=== PATIENT | female | born 1980 | race Caucasian/White ===

== ENCOUNTER 2019-08-16 17:04 | Emergency (ER) | payer MEDICAID, SELFPAY ==
[2019-08-16 17:11] VITALS: TEMP 36.6; BMI 21.2
--- NOTE | 2019-08-16 17:14 | W.ED.PSYCH ---
HPI - Psych General: Chief Complaint: General Medical Stated Complaint: OUT OF BIPOLAR MEDS Time Seen by Provider: 08/16/19 17:09 History of Present Illness: HPI Narrative: Patient is a 38 year old female presenting with crying for the past month. She has not been on her medicines for a month and says that she has been crying every day. She denies suicidal ideation, but feels hopeless, sad, is unable to sleep and wants to be admitted and started back on her medicine. Associated symptoms: Reports depression; Deny suicidal ideation Review of Systems General: Reports: 10 or more systems reviewed and unremarkable except in HPI and below Const: Reports: malaise; Denies: fever(s), chills or fatigue Eyes: Denies: change in vision ENMT: Denies: odynophagia Card: Denies: chest pain or swelling of feet/ankles Resp: Denies: dyspnea, productive cough or non-productive cough GI: Denies: abdominal pain, nausea or vomiting : Denies: flank pain or difficulty voiding Musc: Denies: neck pain or back pain Skin/Breast: Denies: rash Neuro: Denies: headache(s), numbness in extremities or weakness in extremities Psych: Reports: anxiety, depression, mood swings, sleeping less, hopelessness, loss of interest, irritability and other (Crying); Denies: suicidal ideation Young/Lymph: Denies: easy bruising or easy bleeding PFSH ED PFSH: Social History Smoking and tobacco status: never smoked Physical Exam Const: COMMON NORMALS: no acute distress, patient oriented x3, no limitations and alert GENERAL APPEARANCE: cooperative and comfortable HENMT: HEAD & SCALP: normal to inspection FACE & SINUS: normal facial exam Eye: GENERAL EYE: appearance normal, both eyes and all related structures Neck/C-Spine: COMMON NORMALS: supple, no meningeal signs and no JVD Chest: COMMONS NORMALS: normal inspection of the chest Resp: COMMON NORMALS: normal respiratory effort, No use of accessory muscles and clear to auscultation bilaterally AUSCULTATION: clear to auscultation bilaterally Cardio: COMMON NORMALS: no JVD, regular rate, regular rhythm and No murmurs present (Cardio) RATE: regular rate RHYTHM: regular rhythm GI: COMMON NORMALS: Normal to inspection, nondistended, normoactive bowel sounds present, Soft to palpation and non-tender INSPECTION: Yes normal to inspection AUSCULTATION: Yes normoactive bowel sounds PALPATION: Yes Soft to palpation Back/Pelvis: COMMON NORMALS: thoracic and lumbar spine normal to inspection Extremity: COMMON NORMALS: normal to inspection Neuro: COMMON NORMALS: patient oriented x3, moves all extremities, no focal motor deficits and no sensory deficits noted SENSORIUM/ORIENTATION: Yes alert MENINGEAL SIGNS: Yes no meningeal signs Psych: COMMON NORMALS: mental status grossly normal, cooperative and speech normal ATTITUDE: Yes calm SPEECH: Yes normal speech MOOD & AFFECT: Yes depressed mood, Yes anxious and Yes tearful Skin: COMMON NORMALS: no rashes or lesions noted and turgor normal GENERAL SKIN EXAM: no rashes or lesions noted and turgor normal MDM - Psych Lab Data: Labs: Lab Results 08/16/19 08/16/19 08/16/19 Range/Units 17:23 17:23 17:30 WBC 8.7 (4.0-10.0) 10^3/ uL RBC 4.73 (4.1-5.3) 10^6/u L Hgb 14.5 (11.5-15.3) g/dL Hct 43.3 (37.0-47.0) % MCV 91.5 (81-99) fL MCH 30.7 (28.0-34.0) pg MCHC 33.5 (30.0-36.0) g/dL RDW 13.2 (12.1-15.1) % Plt Count 243 (130-400) 10^3/c mm MPV 11.6 H (7.4-10.4) fL Neut % (Auto) 62.0 % Lymph % (Auto) 29.5 % Ness % (Auto) 6.0 % Eos % (Auto) 1.7 % Baso % (Auto) 0.5 % Neut # (Auto) 5.4 (1.8-7.7) 10^3/u L Lymph # (Auto) 2.6 (0.8-4.8) 10^3/u L Ness # (Auto) 0.5 (0.2-0.9) 10^3/u L Eos # (Auto) 0.2 (0.0-0.8) 10^3/u L Baso # (Auto) 0.0 (0.0-0.1) 10^3/u L Nucleated RBC % (a uto) 0 % Nucleated RBCs # 0.0 /100WBC Sodium 140 (136-145) mmol/L Potassium 3.8 (3.5-5.1) mmol/L Chloride 105 (98-107) mmol/L Carbon Dioxide 21 L (22-29) mmol/L Anion Gap 17.8 (5-19) BUN 7 (6-20) mg/dL Creatinine 0.5 (0.5-0.9) mg/dL GFR Calculation 138.1 H (90-130) mL/min Glucose 98 (65-115) mg/dL Calculated Osmolal ity 286 (285-295) mOsm/k g Calcium 8.9 (8.5-10.5) mg/dL Total Bilirubin 0.2 (0.15-1.2) mg/dL AST 15 (0-32) U/L ALT 16 (0-33) U/L Alkaline Phosphata se 83 (35-105) IU/L Total Protein 6.9 (6.6-8.7) g/dL Albumin 4.4 (3.5-5.2) g/dL Globulin 2.5 (1.3-4.6) g/dL TSH 1.54 (0.27-4.20) uIU/ mL HCG, Qual Negative (Negative) Salicylates < 0.3 L (3-10) mg/dL Acetaminophen < 5.0 L (10-30) ug/mL Ethyl Alcohol < 10 (0-10) mg/dL Discharge Plan Discharge Patient Disposition: Home, Self-Care Clinical Impression: Depression Qualifiers: Depression Type: unspecified Qualified Code(s): F32.9 - Major depressive disorder, single episode, unspecified Condition: Stable Prescriptions: New Latuda 40 mg tablet 80 mg PO DAILY Qty: 90 RF: 0 trazodone 50 mg tablet 50 mg PO .nightly Qty: 30 RF: 0 No Action Latuda 120 mg tablet 120 mg PO DAILY Qty: 30 RF: 0 olanzapine 10 mg tablet 10 mg PO BID RF: 0 trazodone 50 mg tablet 50 - 100 mg PO BEDTIME RF: 0 Tylenol 325 mg Tablet 325 mg PO PRN RF: 0 Discharge Orders: Discharge Order (Routine); Ordered 08/16/19 Ordered By: Carmencita Nunez Referrals: [facility] [Other] Discharge Diet: Usual diet Discharge Activity: Resume usual activity Patient Instructions: Bipolar Disorder (ED) Activity Restrictions/Additional Instructions: Get the prescriptions filled and take the medicines regularly. Our case packer and sealer will contact you to help with setting up a follow up appointment and with getting your medicines. Return to the ED if worse symptoms or suicidal thoughts. Discharge Date/Time: 08/16/19 19:49 Coding Level of Care Code ED Risk And Insurance Consultant for [employer] Fwd Exam Comprehensive
[2019-08-16 17:26] VITALS: BP 135/91; PULSE 100; RESP 18; TEMP 36.6; O2SAT 96
[2019-08-16 17:31] LABS: Basophils % 0.5 %; Eosinophils # 0.2 10^3/uL (0.0-0.8); Eosinophils % 1.7 %; Hematocrit 43.3 % (37.0-47.0); Hemoglobin 14.5 g/dL (11.5-15.3); Lymphocytes # 2.6 10^3/uL (0.8-4.8); Lymphocytes % 29.5 %; Mean Corpuscular HGB Conc 33.5 g/dL (30.0-36.0); Mean Corpuscular Hemoglobin 30.7 pg (28.0-34.0); Mean Corpuscular Volume 91.5 fL (81-99); Mean Platelet Volume 11.6 fL (7.4-10.4); Monocytes # 0.5 10^3/uL (0.2-0.9); Neutrophils # 5.4 10^3/uL (1.8-7.7); Nucleated Red Blood Cells % 0 %; Platelet Count 243 10^3/cmm (130-400); Red Blood Count 4.73 10^6/uL (4.1-5.3); Red Cell Distribution Width 13.2 % (12.1-15.1); White Blood Count 8.7 10^3/uL (4.0-10.0)
[2019-08-16 17:38] LABS: HCG Qualitative Urine. Negative (Negative)
[2019-08-16 17:59] LABS: Alanine Aminotransferase 16 U/L (0-33); Albumin Level 4.4 g/dL (3.5-5.2); Alkaline Phosphatase 83 IU/L (35-105); Anion Gap 17.8 (5-19); Aspartate Amino Transferase 15 U/L (0-32); Blood Urea Nitrogen 7 mg/dL (6-20); Calcium 8.9 mg/dL (8.5-10.5); Carbon Dioxide 21 mmol/L (22-29); Chloride 105 mmol/L (98-107); Creatinine Clr Calc Pharmacy 148.4391; Globulin 2.5 g/dL (1.3-4.6); Glomerular Filtration Rate 138.1 mL/min (90-130); Glucose 98 mg/dL (65-115); Osmolality Calculated 286 mOsm/kg (285-295); Potassium 3.8 mmol/L (3.5-5.1); Sodium 140 mmol/L (136-145); Thyroid Stimulating Hormone 1.54 uIU/mL (0.27-4.20); Total Bilirubin 0.2 mg/dL (0.15-1.2); Total Protein 6.9 g/dL (6.6-8.7)
[2019-08-16 18:02] LABS: Acetaminophen < 5.0 ug/mL (10-30); Alcohol Level < 10 mg/dL (0-10); Salicylate < 0.3 mg/dL (3-10)
[2019-08-16] MEDS: lurasidone 80 mg Tablet PO (18:46)
[2019-08-16] MEDS: trazodone 50 mg Tablet PO (18:46)
[2019-08-16 18:50] VITALS: BP 139/74; PULSE 74; RESP 18; O2SAT 99
[2019-08-16 20:46] LABS: Amphetamines Screen Urine Negative (Negative); Barbiturates Screen Urine Negative (Negative); Benzodiazepines Screen Urine Negative (Negative); Cocaine Screen Urine Negative (Negative); PCP Screen Urine Negative (Negative); THC Screen Urine Negative (Negative)
[2019-08-16 20:47] LABS: Opiate Screen Urine Negative (Negative)
[2019-08-16 20:55] LABS: Add Urine Microscopic? YES; Bilirubin Urine 1+ (NEGATIVE); Blood Urine 3+ (Negative); Glucose Urine UA Norm (Normal); Ketones Urine Negative (Negative); Leukocyte Esterase Urine 1+ (Negative); Nitrate Urine Negative (Negative); Protein Urine 1+ (Negative); Urine Appearance Hazy (CLEAR); Urine Color Yellow (Yellow); Urobilinogen Urine 1 mg/dL (Negative); pH Urine 5 (5-7)
[2019-08-16 20:58] LABS: Add Urine Culture? Yes; Bacteria Urine TRACE; Mucus Urine 3+; RBC Urine TOO NUMEROUS TO CNT /hpf (0-2)
--- NOTE | 2019-08-17 09:36 | DCPLANNER ---
qualitative field project manager had message to speak with patient about a follow up appointment and medications. qualitative field project manager called [phone] and was unable to speak with patient at this time, and unable to leave a voicemail. Phone rang and then went to a busy signal.
== END 2019-08-16 19:49 | disposition home or self-care (01) ==
PROVIDERS: Emergency Provider Emergency Medicine
DX: F32.9 Major depressive disorder, single episode, unspecified (principal)
CPT/HCPCS: 12345; 36415; 80053; 80306; 80307; 81001; 81025; 84443; 85025; 87086; 99282; 99283

== ENCOUNTER 2020-07-16 12:23 | Emergency (ER) | payer MEDICAID, SELFPAY ==
[2020-07-16 12:28] VITALS: BMI 36.8
[2020-07-16 12:39] VITALS: BP 137/84; PULSE 94; RESP 12; TEMP 36.6; O2SAT 96
--- NOTE | 2020-07-16 12:39 | ED_ITS ---
HPI - Psych General: Chief Complaint: Psychiatric Symptoms Stated Complaint: PSYCH EVAL Time Seen by Provider: 07/16/20 12:27 History of Present Illness: HPI Narrative: 39-year-old female brought in for psych evaluation. Patient has a history of schizophrenia. She has been on lurasidone for approximately 10 years. Patient went off of it cold turkey about 30 days ago. She does have a prescription for it. Patient has complaints of anxiety, depression patient is denying suicidal ideations or homicidal ideations. Patient has no physical complaints. Associated symptoms: Reports depression; Deny homicidal ideation or suicidal ideation Review of Systems Const: Denies: fever(s) or chills Eyes: Denies: change in vision ENMT: Denies: throat pain Card: Denies: chest pain or palpitations Resp: Denies: dyspnea or chest congestion GI: Denies: abdominal pain, nausea or vomiting : Denies: flank pain or difficulty voiding Musc: Denies: neck pain Skin/Breast: Denies: rash Neuro: Denies: headache(s) or numbness in extremities Psych: Reports: anxiety and depression; Denies: suicidal ideation or homicidal ideation PFSH ED PFSH: Medical History Alcohol dependence, in remission Mild intellectual disabilities Nicotine dependence, cigarettes, uncomplicated Other stimulant dependence, in remission Schizophrenia, paranoid Social History Smoking and tobacco status: never smoked Female Reproductive History: Date of last menstrual period: 08/16/19 Physical Exam Const: COMMON NORMALS: average body habitus and patient oriented x3 GENERAL APPEARANCE: disheveled HENMT: COMMON NORMALS: normocephalic and atraumatic HEAD & SCALP: normocephalic and atraumatic Eye: COMMON NORMALS: Equal, round and reactive pupils present PUPIL: Yes Equal, round and reactive pupils present Neck/C-Spine: COMMON NORMALS: full ROM Resp: COMMON NORMALS: normal respiratory effort and clear to auscultation bilaterally EFFORT & INSPECTION: Yes able to speak in complete sentences AUSCULTATION: clear to auscultation bilaterally Cardio: COMMON NORMALS: regular rate and regular rhythm RATE: regular rate RHYTHM: regular rhythm GI: COMMON NORMALS: Soft to palpation and non-tender PALPATION: Yes Soft to palpation Neuro: COMMON NORMALS: patient oriented x3 and no focal motor deficits Psych: APPEARANCE: Yes unkempt ATTITUDE: Yes Withdrawn affect present ACTIVITY/MOTOR BEHAVIOR: Yes Avoids eye contact (attititude/behavior) MOOD & AFFECT: Yes depressed mood ATTENTION/CONCENTRATION: Yes attention grossly intact MEMORY/COGNITION: Yes memory grossly intact MDM - Psych MDM Narrative: Medical decision making narrative: Patient continually denies any suicidal homicidal ideations to me or staff. Patient would like her Latuda refilled. I will give her a 30-day prescription for her Latuda. I recommend the patient that she follows up with her psychiatrist and family physician in 2 to 3 days. Lab Data: Attestation: I reviewed the patient's lab results. Labs: Lab Results 07/16/20 07/16/20 07/16/20 Range/Units 15:03 15:03 15:05 WBC 6.1 (4.0-10.0) 10^3/ uL RBC 4.63 (4.1-5.3) 10^6/u L Hgb 13.9 (11.5-15.3) g/dL Hct 41.5 (37.0-47.0) % MCV 89.6 (81-99) fL MCH 30.0 (28.0-34.0) pg MCHC 33.5 (30.0-36.0) g/dL RDW 12.4 (12.1-15.1) % Plt Count 202 (130-400) 10^3/c mm MPV 12.1 H (7.4-10.4) fL Neut % (Auto) 56.2 % Lymph % (Auto) 34.0 % Barber % (Auto) 8.0 % Eos % (Auto) 0.8 % Baso % (Auto) 0.8 % Neut # (Auto) 3.44 (1.8-7.7) 10^3/u L Lymph # (Auto) 2.1 (0.8-4.8) 10^3/u L Barber # (Auto) 0.5 (0.2-0.9) 10^3/u L Eos # (Auto) 0.1 (0.0-0.8) 10^3/u L Baso # (Auto) 0.1 (0.0-0.1) 10^3/u L Nucleated RBC % (a uto) 0 % Nucleated RBCs # 0.0 /100WBC Sodium 139 (136-145) mmol/L Potassium 4.2 (3.5-5.1) mmol/L Chloride 105 (98-107) mmol/L Carbon Dioxide 25 (22-29) mmol/L Anion Gap 13.2 (5-19) BUN 6 (6-20) mg/dL Creatinine 0.7 (0.5-0.9) mg/dL GFR Calculation 93.2 (90-130) mL/min Glucose 98 (65-115) mg/dL Calculated Osmolal ity 286 (285-295) mOsm/k g Calcium 9.2 (8.5-10.5) mg/dL Total Bilirubin 0.2 (0.15-1.2) mg/dL AST 15 (0-32) U/L ALT 24 (0-33) U/L Alkaline Phosphata se 89 (35-105) IU/L Total Protein 7.0 (6.6-8.7) g/dL Albumin 4.2 (3.5-5.2) g/dL Globulin 2.8 (1.3-4.6) g/dL Salicylates < 0.3 L (3-10) mg/dL Urine Opiates Scre en Negative (Negative) ng/mL Acetaminophen < 5.0 L (10-30) ug/mL Ur Barbiturates Sc reen Negative (Negative) ng/mL Ur Phencyclidine S crn Negative (Negative) ng/mL Ur Amphetamines Sc reen Negative (Negative) ng/mL U Benzodiazepines Scrn Negative (Negative) ng/mL Urine Cocaine Scre en Negative (Negative) ng/mL U Marijuana (THC) Screen Negative (Negative) ng/mL Discharge Plan Discharge Patient Disposition: Home Clinical Impression: Schizophrenia, paranoid Depression Qualifiers: Depression Type: unspecified Qualified Code(s): F32.9 - Major depressive disorder, single episode, unspecified Condition: Stable Prescriptions: New Latuda 120 mg tablet 120 mg PO DAILY Qty: 30 RF: 0 No Action aspirin 325 mg Tablet 650 mg PO PRN RF: 0 ProAir HFA 90 mcg/actuation Hfa Aerosol Inhaler 2 puff INHALATION Q4H PRN (Reason: Shortness Of Breath) RF: 0 melatonin 5 mg tablet 5 - 10 mg PO BEDTIME PRN (Reason: Sleep) RF: 0 Latuda 120 mg tablet 120 mg PO DAILY RF: 0 Discharge Orders: Discharge ED (Routine); Ordered 07/16/20 Ordered By: Pernell Wynn Discharge Diet: Usual diet Discharge Activity: Resume usual activity Patient Instructions: Depression (ED), Schizophrenia (ED), Opioid Safety Activity Restrictions/Additional Instructions: Follow-up with your psychiatrist and primary care provider in 2 to 3 days Coding Level of Care Code ED Construction Services Technician for [facility] Fwd Exam Comprehensive
[2020-07-16 13:08] VITALS: BP 125/91; PULSE 84; RESP 17; O2SAT 100
[2020-07-16 13:30] VITALS: BP 125/91; PULSE 88; RESP 17; O2SAT 97
[2020-07-16 14:00] VITALS: BP 116/80; PULSE 84; RESP 17; O2SAT 97
[2020-07-16 15:10] VITALS: BP 116/80; PULSE 90; RESP 17; O2SAT 99
[2020-07-16 15:20] LABS: Amphetamines Screen Urine Negative (Negative); Barbiturates Screen Urine Negative (Negative); Benzodiazepines Screen Urine Negative (Negative); Cocaine Screen Urine Negative (Negative); Opiate Screen Urine Negative (Negative); PCP Screen Urine Negative (Negative); THC Screen Urine Negative (Negative)
[2020-07-16 15:21] LABS: Basophils # 0.1 10^3/uL (0.0-0.1); Basophils % 0.8 %; Eosinophils # 0.1 10^3/uL (0.0-0.8); Eosinophils % 0.8 %; Hematocrit 41.5 % (37.0-47.0); Hemoglobin 13.9 g/dL (11.5-15.3); Lymphocytes # 2.1 10^3/uL (0.8-4.8); Mean Corpuscular HGB Conc 33.5 g/dL (30.0-36.0); Mean Corpuscular Volume 89.6 fL (81-99); Mean Platelet Volume 12.1 fL (7.4-10.4); Monocytes # 0.5 10^3/uL (0.2-0.9); Neutrophils # 3.44 10^3/uL (1.8-7.7); Neutrophils % 56.2 %; Nucleated Red Blood Cells % 0 %; Platelet Count 202 10^3/cmm (130-400); Red Blood Count 4.63 10^6/uL (4.1-5.3); Red Cell Distribution Width 12.4 % (12.1-15.1); White Blood Count 6.1 10^3/uL (4.0-10.0)
[2020-07-16 15:35] LABS: Alanine Aminotransferase 24 U/L (0-33); Albumin Level 4.2 g/dL (3.5-5.2); Alkaline Phosphatase 89 IU/L (35-105); Anion Gap 13.2 (5-19); Aspartate Amino Transferase 15 U/L (0-32); Blood Urea Nitrogen 6 mg/dL (6-20); Calcium 9.2 mg/dL (8.5-10.5); Carbon Dioxide 25 mmol/L (22-29); Chloride 105 mmol/L (98-107); Globulin 2.8 g/dL (1.3-4.6); Glomerular Filtration Rate 93.2 mL/min (90-130); Glucose 98 mg/dL (65-115); Osmolality Calculated 286 mOsm/kg (285-295); Potassium 4.2 mmol/L (3.5-5.1); Sodium 139 mmol/L (136-145); Total Bilirubin 0.2 mg/dL (0.15-1.2)
[2020-07-16 15:42] LABS: Acetaminophen < 5.0 ug/mL (10-30); Salicylate < 0.3 mg/dL (3-10)
[2020-07-16 16:02] VITALS: BP 116/80; PULSE 107; RESP 18; TEMP 37.2; O2SAT 96
--- NOTE | 2020-07-17 16:08 | PC.NURSE ---
Pts meghann Villa was called in to [facility]
== END 2020-07-16 16:05 | disposition home or self-care (01) ==
PROVIDERS: Emergency Provider Student in an Organized Health Care Education/Training Program
DX: F32.9 Major depressive disorder, single episode, unspecified (principal); F20.0 Paranoid schizophrenia; Z79.82 Long term (current) use of aspirin
CPT/HCPCS: 80053; 80306; 80307; 85025; 99283

== ENCOUNTER 2020-09-21 13:37 | Inpatient (IN) | payer MEDICAID, SELFPAY ==
[2020-09-21 14:08] VITALS: BP 124/91; PULSE 99; RESP 18; TEMP 36.8; O2SAT 97; BMI 26.4
--- NOTE | 2020-09-21 14:18 | ECG_ITS ---
[facility] Test Date: 2020-09-21 Pat Name: Patt Kennedy Department: Room: Gender: Female Java Application Engineer: : 1980 Requested By: Unruly Forrest Order Number: [id number] Donovan MD: Mikey Diamond M.D. Measurements Intervals [place] Rate: 93 P: 66 GA: 176 QRS: -53 QRSD: 97 T: 47 QT: 369 QTc: 461 Interpretive Statements SINUS RHYTHM POSSIBLE LEFT ATRIAL ENLARGEMENT [-0.1mV P WAVE IN V1/V2] LOW QRS VOLTAGE IN PRECORDIAL LEADS [QRS DEFLECTION < 1.0 mV IN CHEST LEADS] INCOMPLETE RIGHT BUNDLE BRANCH BLOCK [90+ ms QRS DURATION, TERMINAL R IN V1/V2, 40+ ms S IN I/aVL/V4/V5/V6] LEFT ANTERIOR FASCICULAR BLOCK [QRS AXIS <= -45, QR IN I, RS IN II] POSSIBLE ANTERIOR MYOCARDIAL INFARCTION [30 ms Q WAVE IN V3/V4, OR R < 0.2 mV IN V4], OF INDETERMINATE AGE No previous ECG available for comparison Electronically Signed On 09-22-2020 21:05:39 CDT by Mikey Diamond M.D. [id number]
--- NOTE | 2020-09-21 14:19 | W.ED.PSYCH ---
HPI - Psych General: Chief Complaint: Psychiatric Symptoms Stated Complaint: MHE Time Seen by Provider: 09/21/20 14:14 History of Present Illness: HPI Narrative: This patient is a 39-year-old female who presents to the emergency department requesting medication prescription. Patient states she needs her Abilify. Patient states she is borderline bipolar. However medical records show the patient has history of paranoid schizophrenia. Patient denies suicidal or homicidal ideation. Patient admits that she does not drink or use drugs but according medical history she has had a problem with both in the past. Patient appears to be paranoid when asking questions. But again denies suicidal homicidal ideation. Medical records show the patient was previously on Latuda but the patient states she is on Abilify at this time. Prescribed by Dr. Ramírez. Will do medical evaluation treat as needed. Relieving factors: medication Associated symptoms: Deny depression Review of Systems General: Reports: 10 or more systems reviewed and unremarkable except in HPI and below Const: Denies: fever(s), chills, body aches or fatigue Eyes: Denies: change in vision or blurry vision ENMT: Denies: throat pain, hoarseness or mouth pain Card: Denies: chest pain, palpitations, irregular heart rhythm, edema, swelling of feet/ankles or lightheadedness Resp: Denies: dyspnea, productive cough, non-productive cough, wheezing or pain on inspiration GI: Denies: abdominal pain, nausea or vomiting : Denies: flank pain, difficulty voiding, dysuria, urinary frequency, urinary urgency or urinary hesitancy Musc: Denies: neck pain, back pain, extremity pain, extremity swelling, joint pain, joint swelling, joint redness, joint warmth or limited range of motion Skin/Breast: Denies: rash, pruritus, erythema or skin tenderness Neuro: Denies: headache(s), numbness in extremities or weakness in extremities Psych: Denies: anxiety or depression PFSH ED PFSH: Medical History Alcohol dependence, in remission Mild intellectual disabilities Nicotine dependence, cigarettes, uncomplicated Other stimulant dependence, in remission Schizophrenia, paranoid Social History Smoking and tobacco status: never smoked Female Reproductive History: Date of last menstrual period: 08/16/19 Physical Exam Const: COMMON NORMALS: no acute distress, average body habitus, patient oriented x3, no limitations, healthy appearing, alert and well nourished HENMT: COMMON NORMALS: normocephalic, atraumatic, hearing grossly normal bilaterally, external ears normal, EAC's normal, TM's normal bilaterally, Normal external nose present, Normal nasal mucous membranes and turbinates present, moist oral mucous membranes, oropharynx normal, dentition normal and gingiva normal HEAD & SCALP: normocephalic and atraumatic NOSE: Normal external nose present and Normal nasal mucous membranes and turbinates present EXTERNAL EAR: Yes external ears normal EXTERNAL AUDITORY CANAL: EAC's normal TYMPANIC MEMBRANE: TM's normal bilaterally Neck/C-Spine: COMMON NORMALS: full ROM, no lymphadenopathy, supple, no meningeal signs, no JVD, Thyroid normal and No carotid bruits THYROID: Thyroid normal Chest: COMMONS NORMALS: normal inspection of the chest, normal palpation of entire chest wall, normal inspection of the breasts and normal palpation of the breasts Breast/axilla inspection: Yes normal inspection of the breasts BREAST/AXILLA PALPATION: Yes normal palpation of the breasts Resp: COMMON NORMALS: normal respiratory effort, No retractions, No use of accessory muscles, clear to auscultation bilaterally and percussion normal AUSCULTATION: clear to auscultation bilaterally PERCUSSION: percussion normal Cardio: COMMON NORMALS: no JVD, regular rate, regular rhythm, S1 normal heart sound present, S2 normal heart sound present, No gallops present (Cardio), No clicks present (Cardio), No murmurs present (Cardio), No rub (Cardio) and Peripheral pulses 2+ throughout RATE: regular rate RHYTHM: regular rhythm HEART SOUNDS: S1 normal heart sound present and S2 normal heart sound present PERIPHERAL PULSES: Peripheral pulses 2+ throughout GI: COMMON NORMALS: Normal to inspection, nondistended, normoactive bowel sounds present, Soft to palpation, non-tender, No hepatosplenomegaly present, no masses and no bruits PALPATION: Yes Soft to palpation and Yes No hepatosplenomegaly present Back/Pelvis: COMMON NORMALS: thoracic and lumbar spine normal to inspection, no thoracic nor lumbar tenderness, thoraco-lumbar ROM normal and straight leg raise negative bilaterally Extremity: COMMON NORMALS: normal to inspection, full ROM, capillary refill normal, no joint enlargement, no clubbing, cyanosis or edema, no calf tenderness and no pedal edema Neuro: COMMON NORMALS: patient oriented x3 SENSORIUM/ORIENTATION: Yes alert MENINGEAL SIGNS: Yes no meningeal signs Psych: COMMON NORMALS: cooperative APPEARANCE: Yes disheveled ATTITUDE: Yes paranoid ACTIVITY/MOTOR BEHAVIOR: Yes fidgeting Course Reevaluation(s): Reevaluation #1: Patient is guarded and only answers in 1 word questions and also appears to be talking to herself. Patient is compliant. Unknown psychological history. Other than medical records also concerning for possible schizophrenia and was previously on Latuda. Patient states that she is bipolar and has Abilify but no records of this. Patient does appear to be significantly paranoid. She is agreeable to be admitted to the hospital for observation to have psychological evaluation to get placed back on medications due to concerns of noncompliance. Time: 16:07 Consultations: Consultation #1: I discussed at length with Dr. Hughes psychiatry. We did review the patient's case and for what we know. He is agreeable to patient be admitted to observation ascertain patient's complete psychological history and any medications that she is previously on. He will see patient write additional orders Time: 16:07 Vital Signs: Vital signs: Vital Signs Temperature 98.2 F 09/21/20 14:08 Pulse Rate 99 09/21/20 14:08 Respiratory Rate 18 09/21/20 14:08 Blood Pressure 124/91 09/21/20 14:08 Pulse Oximetry 97 09/21/20 14:08 MDM - Psych MDM Narrative: Medical decision making narrative: This patient is a 39-year-old female who presents to the emergency department requesting medication prescription. Patient states she needs her Abilify. Patient states she is borderline bipolar. However medical records show the patient has history of paranoid schizophrenia. Patient denies suicidal or homicidal ideation. Patient admits that she does not drink or use drugs but according medical history she has had a problem with both in the past. Patient appears to be paranoid when asking questions. But again denies suicidal homicidal ideation. Medical records show the patient was previously on Latuda but the patient states she is on Abilify at this time. Prescribed by Dr. Ramírez. Patient is guarded and only answers in 1 word questions and also appears to be talking to herself. Patient is compliant. Unknown psychological history. Other than medical records also concerning for possible schizophrenia and was previously on Latuda. Patient states that she is bipolar and has Abilify but no records of this. Patient does appear to be significantly paranoid. She is agreeable to be admitted to the hospital for observation to have psychological evaluation to get placed back on medications due to concerns of noncompliance. I discussed at length with Dr. Hughes psychiatry. We did review the patient's case and for what we know. He is agreeable to patient be admitted to observation ascertain patient's complete psychological history and any medications that she is previously on. He will see patient write additional orders Lab Data: Labs: Lab Results 09/21/20 09/21/20 09/21/20 Range/Units 14:25 14:25 14:50 WBC 8.6 (4.0-10.0) 10^3/ uL RBC 4.60 (4.1-5.3) 10^6/u L Hgb 13.7 (11.5-15.3) g/dL Hct 40.4 (37.0-47.0) % MCV 87.8 (81-99) fL MCH 29.8 (28.0-34.0) pg MCHC 33.9 (30.0-36.0) g/dL RDW 12.3 (12.1-15.1) % Plt Count 229 (130-400) 10^3/c mm MPV 12.5 H (7.4-10.4) fL Neut % (Auto) 55.9 % Lymph % (Auto) 34.5 % Smyth % (Auto) 7.3 % Eos % (Auto) 1.4 % Baso % (Auto) 0.7 % Neut # (Auto) 4.79 (1.8-7.7) 10^3/u L Lymph # (Auto) 3.0 (0.8-4.8) 10^3/u L Smyth # (Auto) 0.6 (0.2-0.9) 10^3/u L Eos # (Auto) 0.1 (0.0-0.8) 10^3/u L Baso # (Auto) 0.1 (0.0-0.1) 10^3/u L Nucleated RBC % (a uto) 0 % Nucleated RBCs # 0.0 /100WBC Sodium 144 (136-145) mmol/L Potassium 4.3 (3.5-5.1) mmol/L Chloride 106 (98-107) mmol/L Carbon Dioxide 26 (22-29) mmol/L Anion Gap 16.3 (5-19) BUN 7 (6-20) mg/dL Creatinine 0.7 (0.5-0.9) mg/dL GFR Calculation 93.2 (90-130) mL/min Glucose 113 (65-115) mg/dL Calculated Osmolal ity 297 H (285-295) mOsm/k g Calcium 9.6 (8.5-10.5) mg/dL Total Bilirubin 0.4 (0.15-1.2) mg/dL AST 14 (0-32) U/L ALT 11 (0-33) U/L Alkaline Phosphata se 87 (35-105) IU/L Total Protein 7.4 (6.6-8.7) g/dL Albumin 4.5 (3.5-5.2) g/dL Globulin 2.9 (1.3-4.6) g/dL HCG, Qual Negative (Negative) Urine Color (Yellow) Urine Appearance (CLEAR) Urine pH (5-7) Ur Specific Gravit y (1.005-1.030) Urine Protein (Negative) Urine Glucose (UA) (Normal) Urine Ketones (Negative) Urine Blood (Negative) Urine Nitrate (Negative) Urine Bilirubin (Negative) Urine Urobilinogen (Negative) mg/dL Ur Leukocyte Lida ase (Negative) Urine RBC (0-2) /hpf Urine WBC (0-5) /hpf Ur Squamous Epith Cells (0-5) /hpf Ur Transition Epit h Cell /hpf Amorphous Sediment Urine Bacteria (NONE) /hpf Urine Mucus /hpf Salicylates < 0.3 L (3-10) mg/dL Urine Opiates Scre en (Negative) ng/mL Acetaminophen < 5.0 L (10-30) ug/mL Ur Barbiturates Sc reen (Negative) ng/mL Ur Phencyclidine S crn (Negative) ng/mL Ur Amphetamines Sc reen (Negative) ng/mL U Benzodiazepines Scrn (Negative) ng/mL Urine Cocaine Scre en (Negative) ng/mL U Marijuana (THC) Screen (Negative) ng/mL Ethyl Alcohol < 10 (0-10) mg/dL 09/21/20 09/21/20 Range/Units 14:50 14:50 WBC (4.0-10.0) 10^3/ uL RBC (4.1-5.3) 10^6/u L Hgb (11.5-15.3) g/dL Hct (37.0-47.0) % MCV (81-99) fL MCH (28.0-34.0) pg MCHC (30.0-36.0) g/dL RDW (12.1-15.1) % Plt Count (130-400) 10^3/c mm MPV (7.4-10.4) fL Neut % (Auto) % Lymph % (Auto) % Smyth % (Auto) % Eos % (Auto) % Baso % (Auto) % Neut # (Auto) (1.8-7.7) 10^3/u L Lymph # (Auto) (0.8-4.8) 10^3/u L Smyth # (Auto) (0.2-0.9) 10^3/u L Eos # (Auto) (0.0-0.8) 10^3/u L Baso # (Auto) (0.0-0.1) 10^3/u L Nucleated RBC % (a uto) % Nucleated RBCs # /100WBC Sodium (136-145) mmol/L Potassium (3.5-5.1) mmol/L Chloride (98-107) mmol/L Carbon Dioxide (22-29) mmol/L Anion Gap (5-19) BUN (6-20) mg/dL Creatinine (0.5-0.9) mg/dL GFR Calculation (90-130) mL/min Glucose (65-115) mg/dL Calculated Osmolal ity (285-295) mOsm/k g Calcium (8.5-10.5) mg/dL Total Bilirubin (0.15-1.2) mg/dL AST (0-32) U/L ALT (0-33) U/L Alkaline Phosphata se (35-105) IU/L Total Protein (6.6-8.7) g/dL Albumin (3.5-5.2) g/dL Globulin (1.3-4.6) g/dL HCG, Qual (Negative) Urine Color Yellow (Yellow) Urine Appearance Sl hazy (CLEAR) Urine pH 5 (5-7) Ur Specific Gravit y 1.020 (1.005-1.030) Urine Protein Neg (Negative) Urine Glucose (UA) Norm (Normal) Urine Ketones 1+ H (Negative) Urine Blood 2+ H (Negative) Urine Nitrate Negative (Negative) Urine Bilirubin 1+ H (Negative) Urine Urobilinogen 1 H (Negative) mg/dL Ur Leukocyte Lida ase Trace H (Negative) Urine RBC None (0-2) /hpf Urine WBC 5-10 H (0-5) /hpf Ur Squamous Epith Cells 15-25 H (0-5) /hpf Ur Transition Epit h Cell 0-4 /hpf Amorphous Sediment Not Reportable Urine Bacteria Trace (NONE) /hpf Urine Mucus 2+ /hpf Salicylates (3-10) mg/dL Urine Opiates Scre en Negative (Negative) ng/mL Acetaminophen (10-30) ug/mL Ur Barbiturates Sc reen Negative (Negative) ng/mL Ur Phencyclidine S crn Negative (Negative) ng/mL Ur Amphetamines Sc reen Negative (Negative) ng/mL U Benzodiazepines Scrn Negative (Negative) ng/mL Urine Cocaine Scre en Negative (Negative) ng/mL U Marijuana (THC) Screen Negative (Negative) ng/mL Ethyl Alcohol (0-10) mg/dL EKG Data^: EKG 1: Attestation: I personally reviewed and interpreted this EKG as follows: EKG interpretation date: 09/21/20 EKG interpretation time: 14:50 Prior EKG tracings: not available for review Interpretation: Sinus rhythm nonspecific EKG findings left anterior fascicular block heart rate 93 Discharge Plan Discharge Patient Disposition: Placed in Observation Clinical Impression: Schizophrenia, paranoid, Mild intellectual disabilities Condition: Stable Prescriptions: No Action aspirin 325 mg Tablet 650 mg PO PRN RF: 0 albuterol sulfate [ProAir HFA] 90 mcg/actuation Hfa Aerosol Inhaler 2 puff INHALATION Q4H PRN (Reason: Shortness Of Breath) RF: 0 melatonin 5 mg tablet 5 - 10 mg PO BEDTIME PRN (Reason: Sleep) RF: 0 Latuda 120 mg tablet 120 mg PO DAILY RF: 0 clindamycin HCl 300 mg capsule 300 mg PO TID RF: 0 Coding Level of Care Code ED Hr Administrative Assistant for Chg Fwd Exam Comprehensive
[2020-09-21 14:51] LABS: Basophils # 0.1 10^3/uL (0.0-0.1); Basophils % 0.7 %; Eosinophils # 0.1 10^3/uL (0.0-0.8); Eosinophils % 1.4 %; Hematocrit 40.4 % (37.0-47.0); Hemoglobin 13.7 g/dL (11.5-15.3); Lymphocytes % 34.5 %; Mean Corpuscular HGB Conc 33.9 g/dL (30.0-36.0); Mean Corpuscular Hemoglobin 29.8 pg (28.0-34.0); Mean Corpuscular Volume 87.8 fL (81-99); Mean Platelet Volume 12.5 fL (7.4-10.4); Monocytes # 0.6 10^3/uL (0.2-0.9); Monocytes % 7.3 %; Neutrophils # 4.79 10^3/uL (1.8-7.7); Neutrophils % 55.9 %; Nucleated Red Blood Cells % 0 %; Platelet Count 229 10^3/cmm (130-400); Red Cell Distribution Width 12.3 % (12.1-15.1); White Blood Count 8.6 10^3/uL (4.0-10.0)
[2020-09-21 14:57] LABS: HCG Qualitative Urine. Negative (Negative)
[2020-09-21 15:05] LABS: Amphetamines Screen Urine Negative (Negative); Barbiturates Screen Urine Negative (Negative); Benzodiazepines Screen Urine Negative (Negative); Cocaine Screen Urine Negative (Negative); Opiate Screen Urine Negative (Negative); PCP Screen Urine Negative (Negative); THC Screen Urine Negative (Negative)
[2020-09-21 15:08] LABS: Alanine Aminotransferase 11 U/L (0-33); Albumin Level 4.5 g/dL (3.5-5.2); Alkaline Phosphatase 87 IU/L (35-105); Anion Gap 16.3 (5-19); Aspartate Amino Transferase 14 U/L (0-32); Blood Urea Nitrogen 7 mg/dL (6-20); Calcium 9.6 mg/dL (8.5-10.5); Carbon Dioxide 26 mmol/L (22-29); Chloride 106 mmol/L (98-107); Globulin 2.9 g/dL (1.3-4.6); Glomerular Filtration Rate 93.2 mL/min (90-130); Glucose 113 mg/dL (65-115); Osmolality Calculated 297 mOsm/kg (285-295); Potassium 4.3 mmol/L (3.5-5.1); Sodium 144 mmol/L (136-145); Total Bilirubin 0.4 mg/dL (0.15-1.2); Total Protein 7.4 g/dL (6.6-8.7)
[2020-09-21 15:12] LABS: Add Urine Microscopic? YES; Bilirubin Urine 1+ (Negative); Blood Urine 2+ (Negative); Glucose Urine UA Norm (Normal); Ketones Urine 1+ (Negative); Leukocyte Esterase Urine Trace (Negative); Nitrate Urine Negative (Negative); Protein Urine Neg (Negative); Urine Appearance SL Hazy (CLEAR); Urine Color Yellow (Yellow); Urobilinogen Urine 1 mg/dL (Negative); pH Urine 5 (5-7)
[2020-09-21 15:17] LABS: Bacteria Urine TRACE /hpf; Mucus Urine 2+ /hpf; Squamous Epithelial Cell Urine 15-25 /hpf (0-5); Transitional Epi Cells Urine 0-4 /hpf
[2020-09-21 15:18] LABS: Add Urine Culture? No
[2020-09-21 15:21] LABS: Acetaminophen < 5.0 ug/mL (10-30); Alcohol Level < 10 mg/dL (0-10); Salicylate < 0.3 mg/dL (3-10)
[2020-09-21 16:35] VITALS: RESP 18; TEMP 36.8; O2SAT 97
[2020-09-21 16:46] VITALS: BP 116/81; PULSE 97; RESP 17; TEMP 36.9; O2SAT 96
[2020-09-21] MEDS: OLANZapine 5 mg ODT PO (17:57)
--- NOTE | 2020-09-21 17:57 | PC.NURSE ---
PRN ZYPREXA ZYDIS 5 MG GIVEN PO PER PT C/O AGITATION/ANXIETY. PT VERY TEARFUL, YELLING OUTBURSTS AT TIMES. WILL CONT TO MONITOR
[2020-09-21] MEDS: nicotine 2 mg Gum BUCCAL (20:56)
[2020-09-21] MEDS: hyDROXYzine 25 mg Capsule 50 MG PO (21:17)
[2020-09-21 21:40] VITALS: BP 102/57; PULSE 94; RESP 20; TEMP 36.7; O2SAT 97
[2020-09-21 21:57] VITALS: PULSE 91; RESP 20; O2SAT 96
[2020-09-22 06:00] VITALS: BP 103/68; PULSE 69; RESP 18; TEMP 36.8; O2SAT 97
[2020-09-22 08:12] VITALS: PULSE 82; RESP 16; O2SAT 97
[2020-09-22] MEDS: lurasidone 80 mg Tablet 120 MG PO (08:39)
[2020-09-22 14:00] VITALS: BP 86/58; PULSE 81; RESP 18; TEMP 36.7; O2SAT 98
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
[2020-09-22 22:00] VITALS: BP 94/57; PULSE 77; RESP 15; TEMP 37.1; O2SAT 98
[2020-09-23 06:00] VITALS: BP 111/71; PULSE 105; RESP 15; TEMP 37.1; O2SAT 97
[2020-09-23] MEDS: lurasidone 80 mg Tablet 120 MG PO (08:07)
[2020-09-23] MEDS: nicotine 21 mg Patch 1 PATCH TRANSDERMA (08:22)
[2020-09-23 13:57] VITALS: BP 126/83; PULSE 102; RESP 17; TEMP 37.2; O2SAT 98
--- NOTE | 2020-09-23 16:53 | PM.NPN ---
Subjective NPU Subjective: Interval history: Patient presents today changing course again saying that she benefited from the Abilify and wanting to restart that. I agreed I would continue to try to connect with her outpatient provider and will get records to see if I can find any evidence that she was on it previously. She is really focused on the fact that she never drank when I was on the Abilify. We talked about the possibility of naltrexone and she was very leery of any medications and so could not commit. She was eating okay and sleeping fine. She endorsed some jitteriness and we discussed maybe decreasing her Latuda but she was very focused on having medications at a certain dose. Mental Status Exam MSE Comments: This is an overweight white female with hospital scrubs on with limited grooming and eye contact. No abnormal movements except for resolving psychomotor retardation. More cooperative with exam in mild distress. Speech was more normal rate and volume. Mood described as a little shaky, affect less irritable. Thought process mostly organized, thought content: Patient denied suicidal or homicidal ideation, there were no delusions reported but paranoid and persecutory thinking noted, she endorsed hearing voices sometimes. Attention and concentration were limited and memory was mostly reliable, but none were formally tested. She is alert and oriented by 3. Insight and judgment limited, impulse control is limited. Vitals/I&O/Wt Last Vital Signs Temp 97.8 F 09/23/20 20:30 Pulse 105 H 09/23/20 20:30 Resp 17 09/23/20 20:30 BP 132/96 09/23/20 20:30 Pulse Ox 100 09/23/20 20:30 Data NPU : 09/21/20 14:25 09/21/20 14:25 A&P Additional A&P Information (1) Alcohol dependence, in remission: (2) Other stimulant dependence, in remission: (3) Nicotine dependence, cigarettes, uncomplicated: (4) Mild intellectual disabilities: (5) Schizophrenia, paranoid: Additional A&P Information This is a 39-year-old white female with a long history of schizophrenia borderline electro functioning versus intellectual disability mild who presents off of her medication starting to have a reemergence of symptoms. 1. Continue current medication. 2. Continue every 15 minute checks for safety. 3. Encourage individual, group and milieu therapies. 4. We will reach out to [facility] provider. Attestations NPU Medical Necessity Statement*: Inpatient hospitalization is medically necessary and the clinically appropriate intervention at this time. We will monitor medications and make changes as indicated. Likely length of stay 2-4 days. Coding Level of Care Code Acute Bilingual Research Interviewer for Zaki Carballo
[2020-09-23 20:30] VITALS: BP 132/96; PULSE 105; RESP 17; TEMP 36.6; O2SAT 100
[2020-09-24 06:00] VITALS: BP 112/80; PULSE 83; RESP 16; TEMP 36.5; O2SAT 97
[2020-09-24] MEDS: lurasidone 80 mg Tablet 120 MG PO (08:07)
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
[2020-09-24 10:56] VITALS: BP 112/80; PULSE 83; RESP 16; TEMP 36.5; O2SAT 97
== END 2020-09-24 11:04 | disposition home or self-care (01) | DRG 885 ==
LOC: ER 16:08 → NP 16:35
PROVIDERS: Admitting Provider Psychiatry & Neurology Psychiatry; Emergency Provider Emergency Medicine; Visit Provider Psychiatry & Neurology Psychiatry
DX: F20.0 Paranoid schizophrenia (principal); F17.210 Nicotine dependence, cigarettes, uncomplicated; F10.21 Alcohol dependence, in remission; F70 Mild intellectual disabilities; F15.21 Other stimulant dependence, in remission; Z79.51 Long term (current) use of inhaled steroids
CPT/HCPCS: 80053; 80306; 80307; 81001; 81025; 85025; 93005; 99285; G0378

== ENCOUNTER → 2021-01-26 12:32 | Outpatient (BNVA) | payer MEDICAID, SELFPAY | PROVIDERS: Visit Provider Registered Nurse | DX: F20.0 Paranoid schizophrenia (principal); F70 Mild intellectual disabilities; F15.21 Other stimulant dependence, in remission; F10.21 Alcohol dependence, in remission; F17.210 Nicotine dependence, cigarettes, uncomplicated | CPT/HCPCS: 36415; 80053; 80061; 83036; 84443; 85025 ==

== ENCOUNTER 2021-08-20 11:51 | Inpatient (IN) | payer MEDICAID, SELFPAY ==
[2021-08-20 11:54] VITALS: BP 132/90; PULSE 93; TEMP 36.8; O2SAT 96; BMI 33.0
--- NOTE | 2021-08-20 12:16 | W.ED.PSYCHS ---
HPI - Psych General: Chief Complaint: Psychiatric Symptoms Stated Complaint: SUICIDAL IDEATIONS Time Seen by Provider: 08/20/21 11:53 PFSH ED PFSH: Medical History (Updated 04/07/21 @ 11:27 by Chrisitan Ulrich) Alcohol dependence, in remission Lack of access to transportation Mild intellectual disabilities Nicotine dependence, cigarettes, uncomplicated Other stimulant dependence, in remission Psychiatric care Psychiatric care Schizophrenia, paranoid Social History Smoking and tobacco status: never smoked Female Reproductive History: Date of last menstrual period: 08/16/19 Course Vital Signs: Vital signs: Vital Signs Temperature 98.2 F 08/20/21 11:54 Pulse Rate 93 08/20/21 11:54 Blood Pressure 132/90 08/20/21 11:54 Pulse Oximetry 96 08/20/21 11:54 Discharge Plan Discharge Condition: Stable Prescriptions: No Action acetaminophen [Tylenol Extra Strength] 500 mg tablet 500 mg PO Q6H PRN (Reason: Pain) 0RF haloperidol decanoate 100 mg/mL solution 150 mg IM .every 4 weeks 0RF lurasidone 60 mg tablet 60 mg PO DAILY 30 Days Qty: 30 3RF Rx Instructions: must administer with food (at least 350 calories) trazodone 100 mg tablet 50 - 100 mg PO DAILY PRN (Reason: insomnia) Qty: 30 0RF benztropine 1 mg tablet 1 mg PO BID PRN (Reason: involuntary movements) Qty: 60 1RF haloperidol 1 mg tablet 1 mg PO BID Qty: 60 0RF Hold Instructions: she wants to see how she does without PO albuterol sulfate [ProAir HFA] 90 mcg/actuation Hfa Aerosol Inhaler 2 puff INHALATION Q4H PRN (Reason: Shortness Of Breath) 0RF Coding Level of Care Code ED Office Support Specialist for Zaki Carballo
--- NOTE | 2021-08-20 12:19 | W.ED.GENADLT ---
HPI - General Adult General: Chief complaint: Psychiatric Symptoms Stated complaint: SUICIDAL IDEATIONS Time Seen by Provider: 08/20/21 11:53 History of Present Illness: HPI: [40]yo patient w/ hx of depression presenting for worsening depression and SI. She does not actively have a plan but reports that her health has been getting worse despite taking medication. On arrival, the patient is AAOx3 and cooperative with my evaluation. No focal complaints of chest pain, shortness of breath, palpitations, N/V, focal GI/ complaints. Currently denies HI. No complaints of hallucinations. Onset: acute Duration: ongoing Location: home Severity: severe Associated symptoms: Deny chest pain, dyspnea, nausea, rash, palpitations or vomiting Review of Systems Const: Denies: fever(s) or chills Eyes: Denies: change in vision ENMT: Denies: mouth pain Card: Denies: chest pain or palpitations Resp: Denies: dyspnea or non-productive cough GI: Denies: abdominal pain, nausea, vomiting or diarrhea : Denies: dysuria Musc: Denies: extremity pain Skin/Breast: Denies: rash or new lesions Neuro: Denies: weakness in extremities Psych: Reports: depression Young/Lymph: Denies: easy bruising PFSH ED PFSH: Medical History Alcohol dependence, in remission Lack of access to transportation Mild intellectual disabilities Nicotine dependence, cigarettes, uncomplicated Other stimulant dependence, in remission Psychiatric care Psychiatric care Schizophrenia, paranoid Social History Smoking and tobacco status: never smoked Female Reproductive History: Date of last menstrual period: 08/16/19 Physical Exam Const: COMMON NORMALS: alert HENMT: COMMON NORMALS: atraumatic HEAD & SCALP: atraumatic MOUTH: moist mucous membranes not abnormal Eye: COMMON NORMALS: EOMs intact bilaterally and conjunctivae normal CONJUNCTIVA: Yes conjunctivae normal Neck/C-Spine: COMMON NORMALS: full ROM and supple Resp: COMMON NORMALS: normal respiratory effort and clear to auscultation bilaterally AUSCULTATION: clear to auscultation bilaterally Cardio: COMMON NORMALS: regular rate RATE: regular rate GI: COMMON NORMALS: Soft to palpation and non-tender PALPATION: Yes Soft to palpation Extremity: COMMON NORMALS: full ROM Neuro: SENSORIUM/ORIENTATION: Yes alert MOTOR EXAM: No Abnormal motor strength present and Other motor observations present (no focal motor deficits) Psych: COMMON NORMALS: speech normal SPEECH: Yes normal speech MOOD & AFFECT: Yes depressed mood Course Vital Signs: Vital signs: Vital Signs Temperature 98.2 F 08/20/21 11:54 Pulse Rate 93 08/20/21 11:54 Blood Pressure 132/90 08/20/21 11:54 Pulse Oximetry 96 08/20/21 11:54 MDM - General Adult Medical Decision Making [40]yo patient w/ hx of depression presenting for SI with depression. HDS, exam within normal limit Thoughts are linear and organized, and the patient has no AH/VH, or HI. Clinically the patient displays no overt toxidrome; they are well appearing, with low suspicion for toxic ingestion given history and exam. Symptoms unlikely 2/2 anemia, hypothyroidism, infection, or ICH. Workup: CBC, CMP, Lipase, salicylate/tylenol, UDS Lab findings: wnl [1:30pm] On reassessment, labs and workup wnl. Patient is hemodynamically stable with no acute medical complaints. Case discussed with psychiatric provider Dr. Hughes at [facility] psych inpatient with recommendation for admission Disposition: Psych Lab Data : 08/20/21 12:50 08/20/21 12:50 Laboratory Results WBC 8.6 10^3/uL (4.0-10.0) 08/20/21 12:50 RBC 4.84 10^6/uL (4.1-5.3) 08/20/21 12:50 Hgb 14.4 g/dL (11.5-15.3) 08/20/21 12:50 Hct 42.9 % (37.0-47.0) 08/20/21 12:50 MCV 88.6 fl (81-99) 08/20/21 12:50 MCH 29.8 pg (28.0-34.0) 08/20/21 12:50 MCHC 33.6 g/dL (30.0-36.0) 08/20/21 12:50 RDW 12.5 % (12.1-15.1) 08/20/21 12:50 Plt Count 259 10^3/cmm (130-400) 08/20/21 12:50 MPV 11.5 fL (7.4-10.4) H 08/20/21 12:50 Neut % (Auto) 62.7 % 08/20/21 12:50 Lymph % (Auto) 29.4 % 08/20/21 12:50 Fulton % (Auto) 5.8 % 08/20/21 12:50 Eos % (Auto) 1.2 % 08/20/21 12:50 Baso % (Auto) 0.6 % 08/20/21 12:50 Neut # (Auto) 5.40 10^3/uL (1.8-7.7) 08/20/21 12:50 Lymph # (Auto) 2.5 10^3/uL (0.8-4.8) 08/20/21 12:50 [place]ulton # (Auto) 0.5 10^3/uL (0.2-0.9) 08/20/21 12:50 Eos # (Auto) 0.1 10^3/uL (0.0-0.8) 08/20/21 12:50 Baso # (Auto) 0.1 10^3/uL (0.0-0.1) 08/20/21 12:50 Nucleated RBC % (auto) 0 % 08/20/21 12:50 Nucleated RBCs # 0.0 /100WBC 08/20/21 12:50 Sodium 140 mmol/L (136-145) 08/20/21 12:50 Potassium 4.5 mmol/L (3.5-5.1) 08/20/21 12:50 Chloride 102 mmol/L (98-107) 08/20/21 12:50 Carbon Dioxide 27 mmol/L (22-29) 08/20/21 12:50 Anion Gap 15.5 (5-19) 08/20/21 12:50 BUN 11 mg/dL (6-20) 08/20/21 12:50 Creatinine 0.7 mg/dL (0.5-0.9) 08/20/21 12:50 GFR Calculation 92.7 mL/min (90-130) 08/20/21 12:50 Glucose 100 mg/dL (65-115) 08/20/21 12:50 Calculated Osmolality 289 mOsm/kg (285-295) 08/20/21 12:50 Calcium 10.1 mg/dL (8.5-10.5) 08/20/21 12:50 Total Bilirubin 0.2 mg/dL (0.15-1.2) 08/20/21 12:50 AST 17 U/L (0-32) 08/20/21 12:50 ALT 8 U/L (0-33) 08/20/21 12:50 Alkaline Phosphatase 99 IU/L (35-105) 08/20/21 12:50 Total Protein 8.1 g/dL (6.6-8.7) 08/20/21 12:50 Albumin 4.6 g/dL (3.5-5.2) 08/20/21 12:50 Globulin 3.5 g/dL (1.3-4.6) 08/20/21 12:50 Lipase 21 U/L (13-60) 08/20/21 12:50 HCG, Qual Negative (Negative) 08/20/21 12:50 Salicylates 1.6 mg/dL (3-10) L 08/20/21 12:50 Urine Opiates Screen Negative ng/mL (Negative) 08/20/21 11:58 Acetaminophen < 5.0 ug/mL (10-30) L 08/20/21 12:50 Ur Barbiturates Screen Negative ng/mL (Negative) 08/20/21 11:58 Ur Phencyclidine Scrn Negative ng/mL (Negative) 08/20/21 11:58 Ur Amphetamines Screen Negative ng/mL (Negative) 08/20/21 11:58 U Benzodiazepines Scrn Negative ng/mL (Negative) 08/20/21 11:58 Urine Cocaine Screen Negative ng/mL (Negative) 08/20/21 11:58 U Marijuana (THC) Screen Negative ng/mL (Negative) 08/20/21 11:58 Discharge Plan Discharge Patient Disposition: Admitted As Inpatient Admit Provider: Devon Hughes Clinical Impression: Depression with suicidal ideation Condition: Stable Coding Level of Care Code ED Electric Range Assembler for Zaki Fwd Exam Comprehensive
[2021-08-20 13:11] LABS: Basophils # 0.1 10^3/uL (0.0-0.1); Basophils % 0.6 %; Eosinophils # 0.1 10^3/uL (0.0-0.8); Eosinophils % 1.2 %; Hematocrit 42.9 % (37.0-47.0); Hemoglobin 14.4 g/dL (11.5-15.3); Lymphocytes # 2.5 10^3/uL (0.8-4.8); Lymphocytes % 29.4 %; Mean Corpuscular HGB Conc 33.6 g/dL (30.0-36.0); Mean Corpuscular Hemoglobin 29.8 pg (28.0-34.0); Mean Corpuscular Volume 88.6 fl (81-99); Mean Platelet Volume 11.5 fL (7.4-10.4); Monocytes # 0.5 10^3/uL (0.2-0.9); Monocytes % 5.8 %; Neutrophils % 62.7 %; Nucleated Red Blood Cells % 0 %; Platelet Count 259 10^3/cmm (130-400); Red Blood Count 4.84 10^6/uL (4.1-5.3); Red Cell Distribution Width 12.5 % (12.1-15.1); White Blood Count 8.6 10^3/uL (4.0-10.0)
[2021-08-20 13:18] LABS: Amphetamines Screen Urine Negative (Negative); Barbiturates Screen Urine Negative (Negative); Benzodiazepines Screen Urine Negative (Negative); Cocaine Screen Urine Negative (Negative); Opiate Screen Urine Negative (Negative); PCP Screen Urine Negative (Negative); THC Screen Urine Negative (Negative)
[2021-08-20 13:31] LABS: Alanine Aminotransferase 8 U/L (0-33); Albumin Level 4.6 g/dL (3.5-5.2); Alkaline Phosphatase 99 IU/L (35-105); Aspartate Amino Transferase 17 U/L (0-32); Blood Urea Nitrogen 11 mg/dL (6-20); Calcium 10.1 mg/dL (8.5-10.5); Carbon Dioxide 27 mmol/L (22-29); Chloride 102 mmol/L (98-107); Globulin 3.5 g/dL (1.3-4.6); Glomerular Filtration Rate 92.7 mL/min (90-130); Glucose 100 mg/dL (65-115); Lipase 21 U/L (13-60); Osmolality Calculated 289 mOsm/kg (285-295); Salicylate 1.6 mg/dL (3-10); Sodium 140 mmol/L (136-145); Total Bilirubin 0.2 mg/dL (0.15-1.2); Total Protein 8.1 g/dL (6.6-8.7)
[2021-08-20 13:32] LABS: HCG, Serum Qual Negative (Negative)
[2021-08-20 13:33] LABS: Acetaminophen < 5.0 ug/mL (10-30)
[2021-08-20 13:34] LABS: Anion Gap 15.5 (5-19); Potassium 4.5 mmol/L (3.5-5.1)
[2021-08-20 14:36] VITALS: BP 127/84; PULSE 93; RESP 18; TEMP 36.7; O2SAT 95
--- NOTE | 2021-08-20 15:29 | PC.NURSE ---
ADMITTED TO NPU AT 1405 VIA WHEELCHAIR AND ER STAFF. STATES SHE IS HERE DUE TO INCREASED DEPRESSION. REPORTS SUICIDAL THOUGHTS THIS AM, SHE THEN CALLED HER DR. IN [place] WHO SHE CALLS JOSELIN. 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 NKDA. REPORTS SHE TAKES LATUDA 60 MG DAILY, COGENTIN DAILY UNABLE TO REPORT DOSE, TRAZADONE 50-100 MG Q HS, HALDOL BID AND UNABLE TO REPORT THE DOSE. PT REPORTS HER AND HER ARE REMODELING THEIR HOME AND SHE DOES NOT LIKE THE BEDROOM, IT MAKES HER CRY. PT NOTED TO BE DISORGANIZED WITH FLIGHT OF IDEAS. DENIES SUBSTANCE AND ALCOHOL ASBUSE. REPORTS SHE HAS BEEN CLEAN [address] OFF OF STREET DRUGS AND 2 YEARS OFF ALCOHOL. WHEN ASKED ON THE SUBSTANCE ABUSE ASSESSMENT WHEN SHE STARTED USING DRUGS SHE DENIED EVER USING ANY DRUGS. BUT DOES REPORT SHE RECEIVED DRUG TREATMENT IN [facility] SEVERAL YEARS AGO. SKIN ASSESSMENT REVEALS MOLES OVER VARIOUS PARTS OF BODY, SCAB TO LEFT UPPER ARM AND 2 RED AREAS ON LEFT LEG. SMOKE 2 PACK OF CIGARETTES A DAY AND REPORTS SHE WANTS TO QUIT. ORIENTATED TO UNIT. ALL QUESTIONS ANSWERED AND SUPPORT VOICED.
[2021-08-20] MEDS: haloperidol 1 mg Tablet PO (18:24)
[2021-08-20 20:24] VITALS: BP 99/66; PULSE 93; RESP 18; TEMP 36.4; O2SAT 94
[2021-08-21 06:00] VITALS: BP 115/79; PULSE 63; RESP 16; TEMP 36.3; O2SAT 96
[2021-08-21] MEDS: nicotine 21 mg Patch 1 PATCH TRANSDERMA (08:03)
[2021-08-21] MEDS: haloperidol 1 mg Tablet PO ×2 (08:03→17:26)
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
[2021-08-21 14:00] VITALS: BP 122/89; PULSE 82; RESP 18; TEMP 36.3; O2SAT 96
[2021-08-21] MEDS: lurasidone 20 mg Tablet 60 MG PO (17:00)
[2021-08-21 19:35] VITALS: BP 104/71; PULSE 74; RESP 17; TEMP 36.5; O2SAT 96
[2021-08-22 06:00] VITALS: BP 104/68; PULSE 86; RESP 18; TEMP 36.6; O2SAT 96
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
[2021-08-22 07:57] VITALS: BP 104/68; PULSE 86; RESP 18; TEMP 36.6; O2SAT 96
[2021-08-22] MEDS: haloperidol 1 mg Tablet PO (08:11)
== END 2021-08-22 08:30 | disposition home or self-care (01) | DRG 885 ==
LOC: ER 13:26 → NP 13:39
PROVIDERS: Admitting Provider Psychiatry & Neurology Psychiatry; Emergency Provider Emergency Medicine; PCP Surgery Plastic and Reconstructive Surgery; Visit Provider Psychiatry & Neurology Psychiatry
DX: F20.0 Paranoid schizophrenia (principal); R45.851 Suicidal ideations; F10.21 Alcohol dependence, in remission; F70 Mild intellectual disabilities; F17.210 Nicotine dependence, cigarettes, uncomplicated; E66.9 Obesity, unspecified; Z68.33 Body mass index [BMI] 33.0-33.9, adult; F15.21 Other stimulant dependence, in remission; Z79.891 Long term (current) use of opiate analgesic
CPT/HCPCS: 80053; 80306; 80307; 83690; 84703; 85025; 97150; 97165; 99285

== ENCOUNTER 2022-06-18 16:32 | Emergency (ER) | payer MEDICAID, SELFPAY ==
[2022-06-18 16:40] VITALS: BP 140/85; PULSE 103; RESP 20; TEMP 36.3; O2SAT 95; BMI 32.8
--- NOTE | 2022-06-18 18:09 | ED.C_ITS ---
HPI - Psych General: Chief Complaint: Psychiatric Symptoms Stated Complaint: NEEDS RX CHANGED Time Seen by Provider: 06/18/22 17:11 Source: patient Mode of arrival: EMS Limitations: no limitations History of Present Illness: Patient presents to the emergency department today brought by ambulance for evaluation treatment of potential side effects from her antipsychotic medication. Patient reports that she had previously been on Latuda. She was up to 120 per dose and states she was doing well with it however, her doctor wanted to try switching her over to Abilify. She states that since starting Abilify she has had difficulty with her normal daily functions and has began speaking to herself. She did take her dose of Abilify this morning. Patient denies any auditory or visual hallucinations. She has no SI or HI. Patient presents requesting to be started back on her Latuda. Associated symptoms: Deny homicidal ideation or suicidal ideation Review of Systems General: Reports: 10 or more systems reviewed and unremarkable except in HPI and below Psych: Reports: difficulty concentrating and other (talking to herself); Denies: suicidal ideation or homicidal ideation [facility] ED PFSH: Medical History Alcohol dependence, in remission Alcohol use disorder, moderate, dependence Anxiety Lack of access to transportation Mild intellectual disabilities Nicotine dependence, cigarettes, uncomplicated Other stimulant dependence, in remission Poor compliance with medication with oral medications Psychiatric care Psychiatric care Schizophrenia, paranoid Social History Smoking and tobacco status: never smoked Physical Exam Const: COMMON NORMALS: no acute distress, patient oriented x3 and alert Eye: COMMON NORMALS: Equal, round and reactive pupils present, EOMs intact bilaterally and conjunctivae normal CONJUNCTIVA: Yes conjunctivae normal PUPIL: Yes Equal, round and reactive pupils present Neck/C-Spine: COMMON NORMALS: no JVD Lymph: LYMPHATIC: no lymphadenopathy noted Resp: COMMON NORMALS: normal respiratory effort, No retractions and No use of accessory muscles Cardio: COMMON NORMALS: no JVD and regular rate RATE: regular rate : COMMON NORMALS: Yes no CVA tenderness BLADDER/KIDNEY EXAM: Yes no CVA tenderness Back/Pelvis: COMMON NORMALS: no CVA tenderness, thoracic and lumbar spine normal to inspection and thoraco-lumbar ROM normal Extremity: COMMON NORMALS: normal to inspection, full ROM and no pedal edema Neuro: COMMON NORMALS: patient oriented x3 SENSORIUM/ORIENTATION: Yes alert Psych: OTHER: Patient is pleasant and social. She is answering her own questions here in the ER. Patient was observed prior to her evaluation and was noted to be speaking quietly to herself. She showed no signs of self-harm while here in the emergency department and no signs of any concerning wounds or bruising noted. Skin: COMMON NORMALS: no rashes or lesions noted and turgor normal GENERAL SKIN EXAM: no rashes or lesions noted and turgor normal Course Vital Signs: Vital signs: Vital Signs Temperature 97.3 F L 06/18/22 16:40 Pulse Rate 103 H 06/18/22 16:40 Respiratory Rate 20 H 06/18/22 16:40 Blood Pressure 140/85 06/18/22 16:40 Pulse Oximetry 95 06/18/22 16:40 Oxygen Delivery Me thod 06/18/22 16:40 MDM - Psych Medical Decision Making At patient's initial triage, patient was found to be stable without SI or HI concerns. The emergency room physicians were notified and she was deemed appropriate for vertical flow. The initial plan was for a medical screening evaluation and, escort to the crisis stabilization area here in the hospital. Spoke with Dr Holley. I spent quite a bit of time talking to the patient regarding her symptoms and she does appear stable to be taken to the crisis stabilization area to discuss her current symptoms and to discuss getting back on her Latuda. I explained this transfer to the patient who was very much willing to go and was escorted by her security to assure a smooth handoff. Differential Diagnosis Likely acute psychosis, chronic schizophrenia, bipolar disorder, depression and drug-induced psychotic disorder; Unlikely suicidal ideation Discharge Plan Discharge Patient Disposition: Home Clinical Impression: Psychiatric care, Drug side effects Condition: Stable Prescriptions: No Action acetaminophen [Tylenol Extra Strength] 500 mg tablet 500 mg PO Q6H PRN (Reason: Pain) famotidine 20 mg tablet 20 mg PO BID divalproex [Depakote] 500 mg tablet,delayed release (DR/EC) 500 mg PO BID Qty: 60 0RF Abilify Maintena 400 mg suspension,extended rel recon 400 mg IM Q28D Qty: 1 0RF Rx Instructions: May not bean picker before 06/01/22 aripiprazole 15 mg tablet 15 mg PO DAILY Qty: 30 0RF buspirone 10 mg tablet See Rx Instructions .ROUTE .COMPLEX Qty: 60 0RF Dose Instruction: TAKE 1 TABLET BY MOUTH TWICE DAILY Rx Instructions: TAKE 1 TABLET BY MOUTH TWICE DAILY albuterol sulfate [ProAir HFA] 90 mcg/actuation Hfa Aerosol Inhaler 2 puff INHALATION Q4H PRN (Reason: Shortness Of Breath) Discharge Orders: Discharge ED (Routine); Ordered 06/18/22 Ordered By: Magnolia Mcnair Referrals: Bere Asharf MD [Primary Care Provider] - Discharge Diet: Usual diet Discharge Activity: Resume usual activity Activity Restrictions/Additional Instructions: After being able to speak with you here in the emergency department, it does sound like you are not tolerating your new medication as well as your previous medications. In effort to safely switch you back over, we are going to escort you to the crisis stabilization department who will talk with you regarding the side effects you are having from your Abilify and can get you started back on the Latuda as it seems to have worked best for you in the past. Coding Level of Care Code ED Information Technology Professor for Zaki Carballo
== END 2022-06-18 18:02 | disposition home or self-care (01) ==
PROVIDERS: Emergency Provider Physician Assistant; PCP Surgery Plastic and Reconstructive Surgery
DX: F06.2 Psychotic disorder with delusions due to known physiological condition (principal); T43.595A Adverse effect of other antipsychotics and neuroleptics, initial encounter
CPT/HCPCS: 99283

== ENCOUNTER → 2023-02-21 09:38 | Outpatient (BNVA) | payer MEDICAID, SELFPAY | PROVIDERS: PCP Surgery Plastic and Reconstructive Surgery; Visit Provider Psychiatry & Neurology Psychiatry | DX: F20.0 Paranoid schizophrenia (principal); Z79.899 Other long term (current) drug therapy; F17.210 Nicotine dependence, cigarettes, uncomplicated; F70 Mild intellectual disabilities; F10.20 Alcohol dependence, uncomplicated; F41.9 Anxiety disorder, unspecified | CPT/HCPCS: 80053; 80061; 83036; 84443; 85025 ==

== ENCOUNTER 2023-09-14 13:14 | Inpatient (IN) | payer MEDICAID, SELFPAY ==
[2023-09-14 13:31] VITALS: BP 135/100; PULSE 83; RESP 16; TEMP 36.7; O2SAT 98
[2023-09-14 14:02] LABS: Basophils # 0.1 10^3/uL (0.0-0.1); Basophils % 0.5 %; Eosinophils % 0.3 %; Hematocrit 44.2 % (36-47); Lymphocytes # 2.1 10^3/uL (0.8-4.8); Lymphocytes % 15.1 %; Mean Corpuscular HGB Conc 33.9 g/dL (30-55); Mean Corpuscular Hemoglobin 29.5 pg (27-33); Mean Corpuscular Volume 86.8 fl (85-98); Mean Platelet Volume 11.4 fL (7.4-10.4); Monocytes # 0.6 10^3/uL (0.2-0.9); Monocytes % 4.5 %; Neutrophils # 10.77 10^3/uL (1.8-7.7); Neutrophils % 79.3 %; Nucleated Red Blood Cells % 0 %; Platelet Count 240 10^3/cmm (157-399); Red Blood Count 5.09 10^6/uL (3.85-5.65); Red Cell Distribution Width 13.2 % (12.1-15.1); White Blood Count 13.58 10^3/uL (3.29-11.43)
[2023-09-14 14:21] LABS: Alanine Aminotransferase 12 U/L (0-33); Albumin Level 4.4 g/dL (3.5-5.2); Alkaline Phosphatase 90 U/L (35-105); Anion Gap 17.5 (5-19); Aspartate Amino Transferase 12 U/L (0-32); Blood Urea Nitrogen 7 mg/dL (6-20); Calcium 9.9 mg/dL (8.5-10.5); Carbon Dioxide 25 mmol/L (22-29); Chloride 103 mmol/L (98-107); Creatinine Clr Calc Pharmacy 123.4605; Globulin 3.5 g/dL (1.3-4.6); Glomerular Filtration Rate 91.8 mL/min (90-130); Glucose 96 mg/dL (65-115); Osmolality Calculated 290 mOsm/kg (285-295); Potassium 4.5 mmol/L (3.5-5.1); Sodium 141 mmol/L (136-145); Total Bilirubin 0.4 mg/dL (0.15-1.2); Total Protein 7.9 g/dL (6.6-8.7)
[2023-09-14 14:22] LABS: Acetaminophen < 5.0 ug/mL (10-30); Alcohol Level < 10 mg/dL (0-10); Salicylate < 0.3 mg/dL (3-10)
[2023-09-14 14:23] LABS: HCG, Serum Qual Negative (Negative)
[2023-09-14 15:37] VITALS: PULSE 80; RESP 18; O2SAT 99
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
[2023-09-14 16:00] VITALS: PULSE 75; RESP 16; O2SAT 97
[2023-09-14 16:16] LABS: Amphetamines Screen Urine Negative (Negative); Barbiturates Screen Urine Negative (Negative); Benzodiazepines Screen Urine Negative (Negative); Cocaine Screen Urine Negative (Negative); Opiate Screen Urine Negative (Negative); PCP Screen Urine Negative (Negative); THC Screen Urine Negative (Negative)
[2023-09-14 17:14] VITALS: BP 149/78; PULSE 90; RESP 16; TEMP 36.9; O2SAT 98
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
[2023-09-14 20:55] VITALS: BP 139/83; PULSE 64; RESP 16; TEMP 36.7; O2SAT 96
[2023-09-15 06:00] VITALS: BP 105/69; PULSE 85; RESP 16; TEMP 36.7; O2SAT 97
[2023-09-15 13:41] VITALS: BP 103/81; PULSE 75; RESP 16; TEMP 36.6; O2SAT 98
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
[2023-09-15] MEDS: nicotine 21 mg Patch 1 PATCH TRANSDERMA (14:29)
[2023-09-15] MEDS: terbinafine 1% Cream 15 gm 1 APPLIC TOPICAL (18:13)
[2023-09-15 19:46] VITALS: BP 120/79; PULSE 80; RESP 19; TEMP 36.8; O2SAT 97
[2023-09-16 06:00] VITALS: BP 103/70; PULSE 77; RESP 18; TEMP 36.4; O2SAT 97
--- NOTE | 2023-09-16 08:14 | PC.NURSE ---
Patient voiced that she would like to be restarted on her abilify and states that she has been compliant and taking it daily. She also said she had intermittent sleep last night due to thinking of her children and it making her upset that she wasn't floating with them or playing in the river like they usually do in the summer.
[2023-09-16] MEDS: nicotine 2 mg Gum BUCCAL (09:13)
[2023-09-16] MEDS: ondansetron 4 MG Tablet PO ×2 (12:55→20:14)
[2023-09-16 13:51] VITALS: BP 98/66; PULSE 59; RESP 16; TEMP 36.3; O2SAT 98
--- NOTE | 2023-09-16 16:36 | W.PM.NPUPNS ---
Subjective NPU Subjective: Patient presented today reporting that she is sorry about the way she was acting yesterday. She could not explain the reason why she was being so agitated and adversarial. She continued to report some situation with her p.o. and not understanding the limitations of the inpatient hospital for her needs related to probation. She agrees she would work with the social work team to determine if there is anything she can gain from being here. We continue to try to identify the situation with her medications. Mental Status Exam MSE Comments: This is an obese white female with hospital scrubs on with limited grooming and eye contact.? No abnormal movements except for mild psychomotor agitation.? Cooperative with exam in mild distress.? Speech was more normal rate and volume and childlike with some mumbling. Mood described as sorry about yesterday, I am feeling a little better, affect congruent and less irritable.. Thought process linear and seeming less disorganized, thought content: Patient denied suicidal or homicidal ideation, there were no delusions reported or noted, she denied auditory or visual hallucinations. ? Attention and concentration were limited and memory was mostly unreliable, but none were formally tested.? She is alert and oriented x person and place.? Insight and judgment limited, impulse control is limited versus impaired.? Intellectual ability is limited versus impaired. Vitals/I&O/Wt Last Vital Signs Temp 97.4 F L 09/16/23 13:51 Pulse 59 L 09/16/23 13:51 Resp 16 09/16/23 13:51 BP 98/66 09/16/23 13:51 Pulse Ox 98 09/16/23 13:51 O2 Del Method Room Air 09/16/23 06:00 Data NPU 09/14/23 13:50 09/14/23 13:50 A&P Assessment and plan (1) Depression with suicidal ideation: (2) Lack of access to transportation: (3) Nicotine dependence, cigarettes, uncomplicated: (4) Mild intellectual disabilities: (5) Schizophrenia, paranoid: (6) Other stimulant dependence, in remission: (7) Alcohol dependence, in remission: Plan This is a 42-year-old white female with a long history of schizophrenia and 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 1.? Continue current medication. But need to identify if she is actually taking the medication. 2.? Continue every 15 minute checks for safety. 3.? Encourage individual, group and milieu therapies. 4.? We will reach out to [facility] provider. 5. Get collateral information. Patient reporting something about needing to be here because of her p.o. and so we need to find out what she actually needs to accomplish while she is here.. Involuntary Hold Information 96 Hour Hold: 96 Hour Involuntary Admission: No Attestations NPU Medical Necessity Statement*: Inpatient hospitalization is medically necessary and the clinically appropriate intervention at this time. We will monitor medication to make changes as indicated. Likely length of stay 3- 4 days. Coding Level of Care Code Acute Code for [facility] Fwd Diagnoses Depression with suicidal ideation F32.A; R45.851 Lack of access to transportation Z91.89 Nicotine dependence, cigarettes, uncomplicated F17.210 Mild intellectual disabilities F70 Schizophrenia, paranoid F20.0 Other stimulant dependence, in remission F15.21 Alcohol dependence, in remission F10.21
[2023-09-16 20:16] VITALS: BP 84/54; PULSE 74; RESP 18; TEMP 36.6; O2SAT 97
[2023-09-16 21:03] VITALS: BP 116/82
[2023-09-17 06:00] VITALS: BP 102/67; PULSE 63; RESP 16; TEMP 36.9; O2SAT 96
--- NOTE | 2023-09-17 10:16 | P.NPUPN_ITS ---
Subjective NPU 2 Subjective: Patient presented today reporting that she is doing fine. She reports that she is worried about the situation with her p.o. and that the social work team had reported attempts to reach out to her p.o. She was noted to be sprucing up around the unit to reportedly keep herself busy. She reports that she now thinks her problems had to do with turning 42 and being a smoker. She reports that she really needs to cut out the smoking and she will have outbursts like she had. We discussed working with the social work team to make sure her legal issues are adequately understood and addressed. At this point she denies any need for any more medication we discussed the likelihood of discharge on Tuesday. Mental Status Exam 2 MSE Comments: This is an obese white female with hospital scrubs on with limited grooming and eye contact.? No abnormal movements except for mild psychomotor agitation.? Cooperative with exam in mild distress.? Speech was more normal rate and volume and childlike with some mumbling. Mood described as sorry about yesterday, I am feeling a little better, affect congruent and less irritable.. Thought process linear and seeming less disorganized, thought content: Patient denied suicidal or homicidal ideation, there were no delusions reported or noted, she denied auditory or visual hallucinations. ? Attention and concentration were limited and memory was mostly unreliable, but none were formally tested.? She is alert and oriented x person and place.? Insight and judgment limited, impulse control is limited versus impaired.? Intellectual ability is limited versus impaired. Vitals/I&O/Wt Last Vital Signs Temp 98.4 F 09/17/23 06:00 Pulse 63 09/17/23 06:00 Resp 16 09/17/23 06:00 BP 102/67 09/17/23 06:00 Pulse Ox 96 09/17/23 06:00 O2 Del Method Room Air 09/17/23 06:00 Data NPU 09/14/23 13:50 09/14/23 13:50 A&P Assessment and plan (1) Depression with suicidal ideation: (2) Lack of access to transportation: (3) Nicotine dependence, cigarettes, uncomplicated: (4) Mild intellectual disabilities: (5) Schizophrenia, paranoid: (6) Other stimulant dependence, in remission: (7) Alcohol dependence, in remission: Plan This is a 42-year-old white female with a long history of schizophrenia and 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 1.? Continue current medication. But need to identify if she is actually taking the medication. 2.? Continue every 15 minute checks for safety. 3.? Encourage individual, group and milieu therapies. 4.? We will reach out to [facility] provider. 5. Get collateral information. Patient reporting something about needing to be here because of her p.o. and so we need to find out what she actually needs to accomplish while she is here.. Involuntary Hold Information 2 96 Hour Hold: 96 Hour Involuntary Admission: No Attestations NPU 2 Medical Necessity Statement*: Inpatient hospitalization is medically necessary and the clinically appropriate intervention at this time. We will monitor medication to make changes as indicated. Likely length of stay 2-3 days. Coding Level of Care Code Acute Code for [facility] Fwd Diagnoses Depression with suicidal ideation F32.A; R45.851 Lack of access to transportation Z91.89 Nicotine dependence, cigarettes, uncomplicated F17.210 Mild intellectual disabilities F70 Schizophrenia, paranoid F20.0 Other stimulant dependence, in remission F15.21 Alcohol dependence, in remission F10.21
[2023-09-17] MEDS: nicotine 21 mg Patch 1 PATCH TRANSDERMA (13:29)
[2023-09-17 14:00] VITALS: BP 108/79; PULSE 57; RESP 16; TEMP 36.8; O2SAT 98
[2023-09-17] MEDS: nicotine 2 mg Gum BUCCAL (15:44)
--- NOTE | 2023-09-17 15:44 | PC.NURSE ---
Patch Patient's patch came off in the shower and discarded.
[2023-09-17 19:44] VITALS: BP 97/57; PULSE 78; RESP 16; TEMP 36.6; O2SAT 95
[2023-09-18 06:00] VITALS: BP 93/53; PULSE 66; RESP 16; TEMP 36.6; O2SAT 97
[2023-09-18] MEDS: nicotine 21 mg Patch 1 PATCH TRANSDERMA (07:29)
--- NOTE | 2023-09-18 13:43 | P.NPUPN_ITS ---
Subjective NPU 2 Subjective: Patient presented today reporting that she is feeling better. She reports her most significant focus is to work with the social work team tomorrow to see if there are any concerns related to her p.o. and needing to go to some kind of sober living facility hoping to get our assistance with that. Otherwise she reports that she feels she is doing better and more ready to go home. We discussed working with the social work team tomorrow and the likely plan for discharge in the next 48 hours. Mental Status Exam 2 MSE Comments: This is an obese white female with hospital scrubs on with limited grooming and eye contact.? No abnormal movements.? Cooperative with exam in mild distress.? Speech was more normal rate and volume and childlike with less mumbling. Mood described as I am feeling better, affect congruent and less irritable.. Thought process linear and seeming less disorganized, thought content: Patient denied suicidal or homicidal ideation, there were no delusions reported or noted, she denied auditory or visual hallucinations. ? Attention and concentration were limited and memory was mostly unreliable, but none were formally tested.? She is alert and oriented x person and place.? Insight and judgment limited, impulse control is limited.? Intellectual ability is limited versus impaired. Vitals/I&O/Wt Last Vital Signs Temp 97.9 F 09/18/23 06:00 Pulse 66 09/18/23 06:00 Resp 16 09/18/23 06:00 BP 93/53 09/18/23 06:00 Pulse Ox 97 09/18/23 06:00 O2 Del Method Room Air 09/17/23 14:00 Weight last 48 hrs Weight 96.797 kg Data NPU 09/14/23 13:50 09/14/23 13:50 A&P Assessment and plan (1) Depression with suicidal ideation: (2) Lack of access to transportation: (3) Nicotine dependence, cigarettes, uncomplicated: (4) Mild intellectual disabilities: (5) Schizophrenia, paranoid: (6) Other stimulant dependence, in remission: (7) Alcohol dependence, in remission: Plan This is a 42-year-old white female with a long history of schizophrenia and 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 1.? Continue off medication. 2.? Continue every 15 minute checks for safety. 3.? Encourage individual, group and milieu therapies. 4.? We will reach out to [facility] provider. 5. Get collateral information. Patient reporting something about needing to be here because of her p.o. and so we need to find out what she actually needs to accomplish while she is here. Involuntary Hold Information 2 96 Hour Hold: 96 Hour Involuntary Admission: No Attestations NPU 2 Medical Necessity Statement*: Inpatient hospitalization is medically necessary and the clinically appropriate intervention at this time. We will monitor medication to make changes as indicated. Likely length of stay 1-2 days. Coding Level of Care Code Acute Code for g Fwd Diagnoses Depression with suicidal ideation F32.A; R45.851 Lack of access to transportation Z91.89 Nicotine dependence, cigarettes, uncomplicated F17.210 Mild intellectual disabilities F70 Schizophrenia, paranoid F20.0 Other stimulant dependence, in remission F15.21 Alcohol dependence, in remission F10.21
[2023-09-18 14:00] VITALS: BP 124/81; PULSE 88; RESP 15; TEMP 36.6; O2SAT 99
[2023-09-18 20:10] VITALS: BP 129/83; PULSE 67; RESP 16; TEMP 36.3; O2SAT 98
[2023-09-18] MEDS: acetaminophen 325 mg Tablet 650 MG PO (21:16)
[2023-09-19 06:00] VITALS: BP 107/63; PULSE 60; RESP 16; TEMP 36.3; O2SAT 98
[2023-09-19 14:00] VITALS: BP 100/63; PULSE 70; RESP 16; TEMP 36.6; O2SAT 97
[2023-09-19] MEDS: acetaminophen 325 mg Tablet 650 MG PO (17:03)
[2023-09-19 17:43] VITALS: BP 100/63; PULSE 70; RESP 16; TEMP 36.6; O2SAT 97
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
== END 2023-09-19 19:06 | disposition home or self-care (01) | DRG 881 ==
LOC: ER 16:02 → NP 16:35
PROVIDERS: Admitting Provider Psychiatry & Neurology Psychiatry; Emergency Provider Physician Assistant; PCP Surgery Plastic and Reconstructive Surgery; Visit Provider Psychiatry & Neurology Psychiatry
DX: F32.A Depression, unspecified (principal); R45.851 Suicidal ideations; F20.9 Schizophrenia, unspecified; F10.21 Alcohol dependence, in remission; F15.21 Other stimulant dependence, in remission; F70 Mild intellectual disabilities; Z72.0 Tobacco use
CPT/HCPCS: 36415; 80053; 80306; 80307; 84703; 85025; 97150; 97165; 99285; Q0162

== ENCOUNTER 2023-09-23 16:05 | Emergency (ER) | payer MEDICAID, SELFPAY ==
--- NOTE | 2023-09-23 16:12 | ECG_ITS ---
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 Measurements Intervals Beyer Rate: 88 P: 56 DC: 181 QRS: -52 QRSD: 102 T: 31 QT: 370 QTc: 449 Interpretive Statements SINUS RHYTHM POSSIBLE LEFT ATRIAL ENLARGEMENT [-0.1mV P-WAVE IN V1/V2] LOW QRS VOLTAGE IN PRECORDIAL LEADS [QRS DEFLECTION < 1.0 mV IN CHEST LEADS] S1-S2-S3 PATTERN, CONSISTENT WITH PULMONARY DISEASE, RVH, OR NORMAL VARIANT INCOMPLETE RIGHT BUNDLE BRANCH BLOCK [90+ ms QRS DURATION, TERMINAL R IN V1/V2, 40+ ms S IN I/aVL/V4/V5/V6] LEFT ANTERIOR FASCICULAR BLOCK [QRS AXIS <= -45, QR IN I, RS IN II] POSSIBLE ANTERIOR MYOCARDIAL INFARCTION , OF INDETERMINATE AGE [30 ms Q WAVE IN V3/V4, OR R < 0.2 mV IN V4] Compared to ECG 09/21/2020 14:50:22 Right ventricular hypertrophy now present Myocardial infarct finding still present Electronically Signed On 09-23-2023 20:44:18 CDT by Mikey Diamond M.D. [email or web address]
[2023-09-23 16:15] VITALS: BP 122/86; PULSE 86; RESP 18; TEMP 36.8; O2SAT 96
[2023-09-23 16:26] LABS: Basophils % 0.4 %; Eosinophils # 0.1 10^3/uL (0.0-0.8); Eosinophils % 1.1 %; Hematocrit 46.1 % (36-47); Lymphocytes # 2.6 10^3/uL (0.8-4.8); Lymphocytes % 24.3 %; Mean Corpuscular HGB Conc 33.8 g/dL (30-55); Mean Corpuscular Hemoglobin 29.8 pg (27-33); Mean Platelet Volume 11.8 fL (7.4-10.4); Monocytes # 0.7 10^3/uL (0.2-0.9); Monocytes % 6.4 %; Neutrophils # 7.06 10^3/uL (1.8-7.7); Neutrophils % 67.4 %; Nucleated Red Blood Cells % 0 %; Platelet Count 237 10^3/cmm (157-399); Red Blood Count 5.24 10^6/uL (3.85-5.65); Red Cell Distribution Width 13.6 % (12.1-15.1); White Blood Count 10.48 10^3/uL (3.29-11.43)
[2023-09-23 16:28] VITALS: RESP 16
[2023-09-23 17:08] LABS: Alanine Aminotransferase 11 U/L (0-33); Albumin Level 4.7 g/dL (3.5-5.2); Alkaline Phosphatase 93 U/L (35-105); Anion Gap 17.4 (5-19); Aspartate Amino Transferase 11 U/L (0-32); Blood Urea Nitrogen 7 mg/dL (6-20); Calcium 10.3 mg/dL (8.5-10.5); Carbon Dioxide 26 mmol/L (22-29); Chloride 101 mmol/L (98-107); Globulin 3.5 g/dL (1.3-4.6); Glomerular Filtration Rate 78.7 mL/min (90-130); Glucose 102 mg/dL (65-115); Osmolality Calculated 288 mOsm/kg (285-295); Potassium 4.4 mmol/L (3.5-5.1); Salicylate < 0.3 mg/dL (3-10); Sodium 140 mmol/L (136-145); Thyroid Stimulating Hormone 1.51 uIU/mL (0.27-4.20); Total Bilirubin 0.2 mg/dL (0.15-1.2); Total Protein 8.2 g/dL (6.6-8.7)
[2023-09-23 17:09] LABS: Acetaminophen < 5.0 ug/mL (10-30); Alcohol Level < 10 mg/dL (0-10)
--- NOTE | 2023-09-23 17:31 | W.ED.PSYCHS ---
HPI - Psych General: Chief Complaint: Psychiatric Symptoms Stated Complaint: 96 Time Seen by Provider: 09/23/23 16:08 History of Present Illness: 42-year-old female who presents to the emergency room with police on a 96-hour hold placed by the court at the request of her commanding officer motorized squad. He feels she needs to be taking her psychiatric medications. She has not been taking them for 3 months now. No reports of any erratic behavior. No suicidal ideation. No homicidal ideation. No behaviors that might be harmful to herself or others are reported. She was in the hospital in the psychiatric unit just a few days ago. She was there for several days and it was felt that she was doing okay without the medications and the side effects of the medications were worse than the issues with not taking them and so Dr. Hughes had discharged her home without any new psychiatric medications. Review of Systems Narrative: Constitutional symptoms: Negative except as documented in HPI. Skin symptoms: Negative except as documented in HPI. Eye symptoms: Negative except as documented in HPI. ENMT symptoms: Negative except as documented in HPI. Respiratory symptoms: Negative except as documented in HPI. Cardiovascular symptoms: Negative except as documented in HPI. Gastrointestinal symptoms: Negative except as documented in HPI. Genitourinary symptoms: Negative except as documented in HPI. Musculoskeletal symptoms: Negative except as documented in HPI. Neurologic symptoms: Negative except as documented in HPI. Psychiatric symptoms: Negative except as documented in HPI. Endocrine symptoms: Negative except as documented in HPI. [facility] ED PFSH: Medical History Anxiety Alcohol use disorder, moderate, dependence Poor compliance with medication with oral medications Psychiatric care Lack of access to transportation Psychiatric care Alcohol dependence, in remission Other stimulant dependence, in remission Nicotine dependence, cigarettes, uncomplicated Mild intellectual disabilities Schizophrenia, paranoid Social History Smoking and tobacco/nicotine status: never used tobacco/nicotine Physical Exam Narrative: EXAM NARRATIVE: General: Alert, no acute distress. Skin: Warm, dry. Head: Normocephalic, atraumatic. Neck: Supple, trachea midline. Eye: Extraocular movements are intact. Ears, nose, mouth and throat: mucosa moist. Cardiovascular: Regular, Normal peripheral perfusion. Respiratory: Lungs are clear to auscultation, respirations are non-labored, breath sounds are equal, Symmetrical chest wall expansion. Gastrointestinal: Soft, Nontender, Non distended Musculoskeletal: Normal ROM, no deformity. Neurological: Alert and oriented, No focal neurological deficit observed. Psychiatric: Cooperative, patient has an odd affect, but she denies any suicidal or homicidal ideation Course Vital Signs: Vital signs: Vital Signs Temperature 98.2 F 09/23/23 16:15 Pulse Rate 86 09/23/23 16:15 Respiratory Rate 16 09/23/23 16:28 Blood Pressure 122/86 09/23/23 16:15 Pulse Oximetry 96 09/23/23 16:15 Oxygen Delivery Me thod Room Air 09/23/23 16:15 MDM - Psych Medical Decision Making Medical decision making: Differential diagnosis for patient with 96-hour hold for psychiatric problems with plan for psychiatric admission including but not limited to and based on the above HPI, review of systems and physical exam: concerns for infection, alcohol intoxication, cardiac issues or other medical problems prior to psychiatric admission. Orders placed to evaluate differential diagnosis based on the above differential, HPI and physical exam labwork, ekg ordered to evaluate the pathologies and to clear the patient medically prior to psychiatric admission EKG: Time 1612. Rate 88. Normal sinus rhythm, No ST-T changes, no ectopy, normal WA & QRS intervals, This was reviewed and interpreted by myself the ER physician at 1615. Lab Review: Laboratory results were reviewed and interpreted by myself the emergency room physician. - Medically cleared. - EKG shows no ischemic changes. - Blood alcohol level is negative, as well as salicylate and Tylenol. - Drug screen is negative - No signs of infection, urinalysis clear and white count is not elevated - No anemia. - BUN and creatinine are within normal limits. I reviewed the patient's medical record. Reexamination: Patient remained stable. She continues to deny any suicidal or homicidal ideations. Consultation: I spoke at length with Dr. Hughes about this patient. He just had her in the hospital and they had felt it was best not to resume her psychiatric medications. He states that he had attempted several times to get a hold of her commanding officer motorized squad to come up with some sort of plan and they never did contact him. He feels like she is safe for discharge and I agree and so we are going to lift the 96-hour hold and discharge her. Assessment and plan: Schizophrenia - Discharged home - Discussed findings and plan with patient. Answered any questions. - All laboratory values were reviewed and interpreted personally by myself, the ER physician - Evaluation and treatment of this problem were appropriate in the emergency setting Lab Data 09/23/23 16:20 09/23/23 16:20 Laboratory Results WBC 10.48 10^3/uL (3.29-11.43) 09/23/23 16:20 RBC 5.24 10^6/uL (3.85-5.65) 09/23/23 16:20 Hgb 15.60 g/dL (11.27-16.99) 09/23/23 16:20 Hct 46.1 % (36-47) 09/23/23 16:20 MCV 88.0 fl (85-98) 09/23/23 16:20 MCH 29.8 pg (27-33) 09/23/23 16:20 MCHC 33.8 g/dL (30-55) 09/23/23 16:20 RDW 13.6 % (12.1-15.1) 09/23/23 16:20 Plt Count 237 10^3/cmm (157-399) 09/23/23 16:20 MPV 11.8 fL (7.4-10.4) H 09/23/23 16:20 Neut % (Auto) 67.4 % 09/23/23 16:20 Lymph % (Auto) 24.3 % 09/23/23 16:20 [place] % (Auto) 6.4 % 09/23/23 16:20 Eos % (Auto) 1.1 % 09/23/23 16:20 Baso % (Auto) 0.4 % 09/23/23 16:20 Neut # (Auto) 7.06 10^3/uL (1.8-7.7) 09/23/23 16:20 Lymph # (Auto) 2.6 10^3/uL (0.8-4.8) 09/23/23 16:20 [place] # (Auto) 0.7 10^3/uL (0.2-0.9) 09/23/23 16:20 Eos # (Auto) 0.1 10^3/uL (0.0-0.8) 09/23/23 16:20 Baso # (Auto) 0.0 10^3/uL (0.0-0.1) 09/23/23 16:20 Nucleated RBC % (auto) 0 % 09/23/23 16:20 Nucleated RBCs # 0.0 /100WBC 09/23/23 16:20 Sodium 140 mmol/L (136-145) 09/23/23 16:20 Potassium 4.4 mmol/L (3.5-5.1) 09/23/23 16:20 Chloride 101 mmol/L (98-107) 09/23/23 16:20 Carbon Dioxide 26 mmol/L (22-29) 09/23/23 16:20 Anion Gap 17.4 (5-19) 09/23/23 16:20 BUN 7 mg/dL (6-20) 09/23/23 16:20 Creatinine 0.8 mg/dL (0.5-0.9) 09/23/23 16:20 GFR Calculation 78.7 mL/min (90-130) L 09/23/23 16:20 Glucose 102 mg/dL (65-115) 09/23/23 16:20 Calculated Osmolality 288 mOsm/kg (285-295) 09/23/23 16:20 Calcium 10.3 mg/dL (8.5-10.5) 09/23/23 16:20 Total Bilirubin 0.2 mg/dL (0.15-1.2) 09/23/23 16:20 AST 11 U/L (0-32) 09/23/23 16:20 ALT 11 U/L (0-33) 09/23/23 16:20 Alkaline Phosphatase 93 U/L (35-105) 09/23/23 16:20 Total Protein 8.2 g/dL (6.6-8.7) 09/23/23 16:20 Albumin 4.7 g/dL (3.5-5.2) 09/23/23 16:20 Globulin 3.5 g/dL (1.3-4.6) 09/23/23 16:20 TSH 1.51 uIU/mL (0.27-4.20) 09/23/23 16:20 HCG, Qual Cancelled 09/23/23 Unknown Salicylates < 0.3 mg/dL (3-10) L 09/23/23 16:20 Acetaminophen < 5.0 ug/mL (10-30) L 09/23/23 16:20 Ethyl Alcohol < 10 mg/dL (0-10) 09/23/23 16:20 No radiology studies performed this visit Discharge Plan Discharge Patient Disposition: Home Clinical Impression: Chronic schizophrenia Condition: Stable Prescriptions: No Action No Known Home Medications Discharge Orders: Discharge ED (Routine); Ordered 09/23/23 Ordered By: Devora Cristina Referrals: Bere Ashraf MD [Primary Care Provider] - Discharge Diet: Usual diet Discharge Activity: Resume usual activity Patient Instructions: Schizophrenia (ED) Activity Restrictions/Additional Instructions: Thank you for choosing [facility] for your healthcare needs today. Please realize this is an emergency room and that we are providing you with a medical screening exam and this may not be complete and all inclusive of all the testing and or work up that you may need to determine your ailment or severity of your illness. You have been screened and evaluated and felt safe for discharge. Health conditions do change or evolve sometimes and as such it is important that you follow up with your Primary Doctor to be re checked, 3-5 days is a general good time frame for follow up. You are always welcome to return to the ED for re assessment if your symptoms are worsening or you have new concerns Coding Level of Care Code ED Raw Stock Machine Feeder for Zaki Carballo
== END 2023-09-23 17:45 | disposition home or self-care (01) ==
PROVIDERS: Emergency Provider Emergency Medicine; PCP Surgery Plastic and Reconstructive Surgery
DX: F20.9 Schizophrenia, unspecified (principal)
CPT/HCPCS: 36415; 80053; 80307; 84443; 85025; 93005; 99284

== ENCOUNTER 2023-11-14 18:20 | Emergency (ER) | payer MEDICAID, SELFPAY ==
[2023-11-14 18:22] VITALS: BP 141/98; PULSE 72; RESP 18; TEMP 36.7; O2SAT 98
--- NOTE | 2023-11-14 18:54 | W.ED.PSYCHS ---
HPI - Psych General: Chief Complaint: Psychiatric Symptoms Stated Complaint: medication/mhe Time Seen by Provider: 11/14/23 18:24 History of Present Illness: Patient brought here by EMS saying she needs her Abilify prescription. Patient was seen in our MPU within the last several months. Patient is on Abilify 10 mg daily this was called in by Lisa Renae on 11/02/2023 at [facility] in [place] appears that she does have a prescription there. This was discussed with the patient and patient is ready to go. Patient has no other complaints at this time. Patient denies suicidal or homicidal ideation. Related Data Home Medications Medication Instructions Recorded Confirmed No Known Home Medications 09/18/23 09/27/23 Previous Rx's Medication Instructions Recorded aripiprazole 10 mg tablet (Abilify) 10 mg PO DAILY 30 days #30 tabs 09/27/23 Allergies Allergy/AdvReac Type Severity Reaction Status Date / Time No Known Allergies Allergy Verified 09/14/23 13:37 Review of Systems General: Reports: 10 or more systems reviewed and unremarkable except in HPI and below PFSH ED PFSH: Medical History Anxiety Alcohol use disorder, moderate, dependence Poor compliance with medication with oral medications Psychiatric care Lack of access to transportation Psychiatric care Alcohol dependence, in remission Other stimulant dependence, in remission Nicotine dependence, cigarettes, uncomplicated Mild intellectual disabilities Schizophrenia, paranoid Social History Smoking and tobacco/nicotine status: never used tobacco/nicotine Physical Exam Const: COMMON NORMALS: no acute distress, average body habitus, patient oriented x3, no limitations, healthy appearing, alert and well nourished HENMT: COMMON NORMALS: normocephalic, atraumatic, hearing grossly normal bilaterally, external ears normal, Normal external nose present and moist oral mucous membranes HEAD & SCALP: normocephalic and atraumatic NOSE: Normal external nose present EXTERNAL EAR: Yes external ears normal Neck/C-Spine: COMMON NORMALS: no JVD Chest: COMMONS NORMALS: normal inspection of the chest and normal palpation of entire chest wall Resp: COMMON NORMALS: normal respiratory effort, No retractions, No use of accessory muscles and clear to auscultation bilaterally AUSCULTATION: clear to auscultation bilaterally Cardio: COMMON NORMALS: no JVD, regular rate, regular rhythm, S1 normal heart sound present, S2 normal heart sound present, No gallops present (Cardio), No clicks present (Cardio), No murmurs present (Cardio) and No rub (Cardio) RATE: regular rate RHYTHM: regular rhythm HEART SOUNDS: S1 normal heart sound present and S2 normal heart sound present GI: COMMON NORMALS: Normal to inspection, nondistended, normoactive bowel sounds present, Soft to palpation, non-tender, No hepatosplenomegaly present and no masses PALPATION: Yes Soft to palpation and Yes No hepatosplenomegaly present Neuro: COMMON NORMALS: patient oriented x3 SENSORIUM/ORIENTATION: Yes alert Course Vital Signs: Vital signs: Vital Signs Temperature 98.1 F 11/14/23 18:22 Pulse Rate 72 11/14/23 18:22 Respiratory Rate 18 11/14/23 18:22 Blood Pressure 141/98 11/14/23 18:22 Pulse Oximetry 98 11/14/23 18:22 Oxygen Delivery Me thod Room Air 11/14/23 18:22 MDM - Psych Medical Decision Making Upon reviewing her prescription history it appears on 11/02/2023 Nichole Renae called in a prescription of Abilify 10 mg #32 [facility]. This was discussed with the patient. Patient be discharged. Lab Data I reviewed the patient's lab results. No radiology studies performed this visit Discharge Plan Discharge Patient Disposition: Home Clinical Impression: Poor compliance with medication, Chronic schizophrenia Condition: Stable Prescriptions: No Action aripiprazole [Abilify] 10 mg tablet 10 mg PO DAILY 30 Days Qty: 30 4RF No Known Home Medications Discharge Orders: Discharge ED (Routine); Ordered 11/14/23 Ordered By: Jarek Hsu Referrals: Bere Ashraf MD [Primary Care Provider] - 1 week Patient Instructions: Schizophrenia (ED) Activity Restrictions/Additional Instructions: Please slat pickler your prescription refills at [facility], this is for your Abilify 10 mg. Thank you for choosing [facility] for your healthcare needs today. Please realize that you were seen in the emergency department and that we are providing you with an emergency medical screening exam and this may not be a complete and all exclusive of all testing and/or medical workup we may need to determine your element or severity of your illness. It is very important that you follow-up as instructed with your primary care provider or specialist for the additional evaluation and to discuss your medical treatment plan. You may return to the emergency department should you have concerns or if your condition changes or worsens in any way. Coding Level of Care Code ED Furniture Removalist'S Assistant for Zaki Carballo
== END 2023-11-14 19:04 | disposition home or self-care (01) ==
PROVIDERS: Emergency Provider Emergency Medicine; PCP Surgery Plastic and Reconstructive Surgery
DX: F20.9 Schizophrenia, unspecified (principal); Z91.148 Patient's other noncompliance with medication regimen for other reason
CPT/HCPCS: 99281

== ENCOUNTER 2023-11-22 20:59 | Emergency (ER) | payer MEDICAID, SELFPAY ==
--- NOTE | 2023-11-22 21:00 | ECG_ITS ---
[facility] Test Date: 2023-11-22 Pat Name: Patt Kennedy Department: Room: Gender: Female Preschool Assistant: : 1980 Requested By: Devora Garcia Order Number: [id number] Donovan MD: Satish Hernadez M.D. Measurements Intervals Burns Rate: 99 P: 58 CA: 160 QRS: -42 QRSD: 111 T: 52 QT: 361 QTc: 465 Interpretive Statements SINUS RHYTHM LEFT AXIS DEVIATION [QRS AXIS < -30] LOW QRS VOLTAGE IN PRECORDIAL LEADS [QRS DEFLECTION < 1.0 mV IN CHEST LEADS] INCOMPLETE RIGHT BUNDLE BRANCH BLOCK [90+ ms QRS DURATION, TERMINAL R IN V1/V2, 40+ ms S IN I/aVL/V4/V5/V6] POSSIBLE ANTERIOR MYOCARDIAL INFARCTION , OF INDETERMINATE AGE [30 ms Q WAVE IN V3/V4, OR R < 0.2 mV IN V4] Compared to ECG 09/23/2023 16:12:32 Left-axis deviation now present Right ventricular hypertrophy no longer present Left anterior fascicular block no longer present Myocardial infarct finding still present Electronically Signed On 11-23-2023 8:05:04 CDT by Satish Hernadez M.D. [id number]
[2023-11-22 21:01] VITALS: BMI 32.7
[2023-11-22] MEDS: ARIPiprazole 10 mg Tablet PO (21:10)
--- NOTE | 2023-11-22 21:10 | W.ED.PSYCHS ---
HPI - Psych General: Chief Complaint: Psychiatric Symptoms Stated Complaint: depression Time Seen by Provider: 11/22/23 21:03 History of Present Illness: 42-year-old female with a history of alcohol use disorder, polysubstance abuse, psychiatric issues and schizophrenia who presents to the emergency room tonight with depression and a request for a refill on her Abilify. She has completely denied any suicidal or homicidal ideations. She says she is depressed and she wants her medications. No reports of any current hallucinations. No reports of any dangerous behaviors. Related Data Previous Rx's Medication Instructions Recorded aripiprazole 10 mg tablet (Abilify) 10 mg PO DAILY 30 days #30 tabs 11/15/23 aripiprazole 10 mg tablet (Abilify) 10 mg PO DAILY 30 days #30 tabs 11/22/23 Allergies Allergy/AdvReac Type Severity Reaction Status Date / Time No Known Allergies Allergy Verified 09/14/23 13:37 Review of Systems Narrative: Constitutional symptoms: Negative except as documented in HPI. Skin symptoms: Negative except as documented in HPI. Eye symptoms: Negative except as documented in HPI. ENMT symptoms: Negative except as documented in HPI. Respiratory symptoms: Negative except as documented in HPI. Cardiovascular symptoms: Negative except as documented in HPI. Gastrointestinal symptoms: Negative except as documented in HPI. Genitourinary symptoms: Negative except as documented in HPI. Musculoskeletal symptoms: Negative except as documented in HPI. Neurologic symptoms: Negative except as documented in HPI. Psychiatric symptoms: Negative except as documented in HPI. Endocrine symptoms: Negative except as documented in HPI. [facility] ED PFSH: Medical History Anxiety Alcohol use disorder, moderate, dependence Poor compliance with medication with oral medications Psychiatric care Lack of access to transportation Psychiatric care Alcohol dependence, in remission Other stimulant dependence, in remission Nicotine dependence, cigarettes, uncomplicated Mild intellectual disabilities Schizophrenia, paranoid Social History Smoking and tobacco/nicotine status: never used tobacco/nicotine Physical Exam Narrative: EXAM NARRATIVE: General: Alert, no acute distress. Skin: Warm, dry. Head: Normocephalic, atraumatic. Neck: Supple, trachea midline. Eye: Extraocular movements are intact. Ears, nose, mouth and throat: mucosa moist. Cardiovascular: Regular, Normal peripheral perfusion. Respiratory: Lungs are clear to auscultation, respirations are non-labored, breath sounds are equal, Symmetrical chest wall expansion. Gastrointestinal: Soft, Nontender, Non distended Musculoskeletal: Normal ROM, no deformity. Neurological: Alert and oriented, No focal neurological deficit observed. Psychiatric: Cooperative, very odd affect, tearful at times Course Vital Signs: Vital signs: Vital Signs Oxygen Delivery Me thod Room Air 11/22/23 21:01 MDM - Psych Medical Decision Making Assessment and plan: Depression Anxiety Schizophrenia ?Prescription for Abilify was given and her first dose was given here tonight. - Discharged home - Discussed plan with patient. Answered any questions. - Evaluation and treatment of this problem were appropriate in the emergency setting. No radiology studies performed this visit Discharge Plan Discharge Patient Disposition: Home Clinical Impression: Psychiatric care, Anxiety, Depression Condition: Stable Prescriptions: New Abilify 10 mg tablet 10 mg PO DAILY 30 Days Qty: 30 0RF No Action aripiprazole [Abilify] 10 mg tablet 10 mg PO DAILY 30 Days Qty: 30 4RF Discharge Orders: Discharge ED (Routine); Ordered 11/22/23 Ordered By: Devora Cristina Referrals: Bere Ashraf MD [Primary Care Provider] - Discharge Diet: Usual diet Discharge Activity: Increase activity as tolerated Patient Instructions: Opioid Safety, Pain Management Activity Restrictions/Additional Instructions: If you develop suicidal thoughts, or thoughts of harming yourself, or thoughts of harming others please seek medical attention immediately. Thank you for choosing [facility] for your healthcare needs today. Please realize this is an emergency room and that we are providing you with a medical screening exam and this may not be complete and all inclusive of all the testing and or work up that you may need to determine your ailment or severity of your illness. You have been screened and evaluated and felt safe for discharge. Health conditions do change or evolve sometimes and as such it is important that you follow up with your Primary Doctor to be re checked, 3-5 days is a general good time frame for follow up. You are always welcome to return to the ED for re assessment if your symptoms are worsening or you have new concerns Coding Level of Care Code ED Unclaimed Property Manager for Zaki Carballo
== END 2023-11-22 21:19 | disposition home or self-care (01) ==
PROVIDERS: Emergency Provider Emergency Medicine
DX: F41.9 Anxiety disorder, unspecified (principal); F32.A Depression, unspecified; F20.9 Schizophrenia, unspecified
CPT/HCPCS: 93005; 99283

== ENCOUNTER 2023-12-09 01:37 | Inpatient (IN) | payer MEDICAID, SELFPAY ==
[2023-12-09 01:38] VITALS: BP 118/86; PULSE 79; RESP 16; TEMP 36.6; O2SAT 96; BMI 34.2
[2023-12-09 02:03] LABS: Basophils % 0.5 %; Eosinophils # 0.1 10^3/uL (0.0-0.8); Eosinophils % 1.2 %; Hematocrit 42.4 % (36-47); Lymphocytes % 36.2 %; Mean Corpuscular HGB Conc 33.5 g/dL (30-55); Mean Corpuscular Hemoglobin 29.8 pg (27-33); Mean Corpuscular Volume 88.9 fl (85-98); Mean Platelet Volume 11.5 fL (7.4-10.4); Monocytes # 0.6 10^3/uL (0.2-0.9); Monocytes % 7.8 %; Neutrophils # 4.44 10^3/uL (1.8-7.7); Neutrophils % 53.9 %; Nucleated Red Blood Cells % 0 %; Platelet Count 212 10^3/cmm (157-399); Red Blood Count 4.77 10^6/uL (3.85-5.65); Red Cell Distribution Width 12.7 % (12.1-15.1); White Blood Count 8.23 10^3/uL (3.29-11.43)
[2023-12-09 02:22] LABS: HCG, Serum Qual Negative (Negative)
--- NOTE | 2023-12-09 02:31 | ED.C_ITS ---
Documented by User: Devora Cristina MD 12/09/23 05:22 HPI - Psych 2 General: Chief Complaint: Psychiatric Symptoms Stated Complaint: psych evaluation Time Seen by Provider: 12/09/23 01:38 History of Present Illness: 42-year-old female who presents emergenc y room with suicidal ideation by ambulance. She is now saying she does not have suicidal ideations. EMS reports they go out on her regularly and she will say she is suicidal and states she is not. They took it on themselves to bring her here because she never is admitted where they normally take her. From there after [place] patient states she would either like to harm herself or join the [employer]. EMS states she cannot join the [employer] from an ambulance. Patient states signaling that she will slit her wrist. Related Data Home Medications Medication Instructions Recorded Confirmed aripiprazole 10 mg tablet 10 mg PO DAILY 12/09/23 12/09/23 hydroxyzine HCl 25 mg tablet 25 mg PO BID PRN Anxiety 12/09/23 12/09/23 nicotine 14 mg/24 hr daily 1 patch topical DAILY 12/09/23 12/09/23 transdermal patch nicotine 7 mg/24 hr daily 1 patch topical DAILY 12/09/23 12/09/23 transdermal patch trazodone 100 mg tablet 100 mg PO BEDTIME 12/09/23 12/09/23 Previous Rx's Medication Instructions Recorded aripiprazole 300 mg intramuscular 300 mg IM Q28D #1 ea 12/02/23 suspension,extended release (Abilify Maintena) nicotine See Rx Instructions transdermal 12/02/23 21mg/24hr-14mg/24hr-7mg/24hr daily .COMPLEX #56 patches transderm patches,sequentl Allergies Allergy/AdvReac Type Severity Reaction Status Date / Time codeine Allergy Intermediate rash Verified 12/02/23 09:04 Review of Systems 2 General: Reports: 10 or more systems reviewed and unremarkable except in HPI and below PFSH ED 2 PFSH: Medical History Anxiety Alcohol use disorder, moderate, dependence Poor compliance with medication with oral medications Psychiatric care Lack of access to transportation Psychiatric care Alcohol dependence, in remission Other stimulant dependence, in remission Nicotine dependence, cigarettes, uncomplicated Mild intellectual disabilities Schizophrenia, paranoid Social History Smoking and tobacco/nicotine status: never used tobacco/nicotine Physical Exam 2 Narrative: EXAM NARRATIVE: General: Alert, no acute distress. Skin: Warm, dry. Head: Normocephalic, atraumatic. Neck: Supple, trachea midline. Eye: Extraocular movements are intact. Ears, nose, mouth and throat: mucosa moist. Cardiovascular: Regular, Normal peripheral perfusion. Respiratory: Lungs are clear to auscultation, respirations are non-labored, breath sounds are equal, Symmetrical chest wall expansion. Gastrointestinal: Soft, Nontender, Non distended Musculoskeletal: Normal ROM, no deformity. Neurological: Alert and oriented, No focal neurological deficit observed. Psychiatric: Cooperative, patient has odd affect but is currently denying suicidal ideation. Course 2 Vital Signs: Vital signs: Vital Signs Temperature 97.9 F 12/09/23 15:23 Pulse Rate 78 12/09/23 15:23 Respiratory Rate 16 12/09/23 05:58 Blood Pressure 113/74 12/09/23 15:23 Pulse Oximetry 97 12/09/23 15:23 Oxygen Delivery Me thod Room Air 12/09/23 05:58 MDM - Psych Medical Decision Making Differential diagnosis: Patient with reported depression and suicidal ideation. concerns for infection, alcohol intoxication, cardiac issues or other medical problems prior to psychiatric admission. Workup: labwork, ekg ordered to evaluate the pathologies and to clear the patient medically prior to psychiatric admission Lab Review: Laboratory results were reviewed and interpreted by myself the emergency room physician. Lab review: - Medically cleared. - EKG shows no ischemic changes. - Blood alcohol level is negative, -Tylenol and salicylate levels are negative. - Drug screen is negative - No signs of infection, urinalysis clear and white count is not elevated - No anemia. - BUN and creatinine are within normal limits. Assessment and plan: Suicidal ideations ?EMS filled out a 96-hour affidavit. I placed a hold. -Admission to neuropsychiatric unit for continued evaluation and treatment. - All lab work was reviewed and interpreted personally by myself, the ER physician - Evaluation and treatment of this problem were appropriate in the emergency setting Awaiting to hear from psychiatry. Unsure if there is any beds right now. Patient care transitioned to Dr. Lord at shift change Lab Data 12/09/23 02:00 12/09/23 02:00 Laboratory Results WBC 8.23 10^3/uL (3.29-11.43) 12/09/23 02:00 RBC 4.77 10^6/uL (3.85-5.65) 12/09/23 02:00 Hgb 14.20 g/dL (11.27-16.99) 12/09/23 02:00 Hct 42.4 % (36-47) 12/09/23 02:00 MCV 88.9 fl (85-98) 12/09/23 02:00 MCH 29.8 pg (27-33) 12/09/23 02:00 MCHC 33.5 g/dL (30-55) 12/09/23 02:00 RDW 12.7 % (12.1-15.1) 12/09/23 02:00 Plt Count 212 10^3/cmm (157-399) 12/09/23 02:00 MPV 11.5 fL (7.4-10.4) H 12/09/23 02:00 Neut % (Auto) 53.9 % 12/09/23 02:00 Lymph % (Auto) 36.2 % 12/09/23 02:00 [place] % (Auto) 7.8 % 12/09/23 02:00 Eos % (Auto) 1.2 % 12/09/23 02:00 Baso % (Auto) 0.5 % 12/09/23 02:00 Neut # (Auto) 4.44 10^3/uL (1.8-7.7) 12/09/23 02:00 Lymph # (Auto) 3.0 10^3/uL (0.8-4.8) 12/09/23 02:00 [place] # (Auto) 0.6 10^3/uL (0.2-0.9) 12/09/23 02:00 Eos # (Auto) 0.1 10^3/uL (0.0-0.8) 12/09/23 02:00 Baso # (Auto) 0.0 10^3/uL (0.0-0.1) 12/09/23 02:00 Nucleated RBC % (auto) 0 % 12/09/23 02:00 Nucleated RBCs # 0.0 /100WBC 12/09/23 02:00 Sodium 141 mmol/L (136-145) 12/09/23 02:00 Potassium 3.7 mmol/L (3.5-5.1) 12/09/23 02:00 Chloride 104 mmol/L (98-107) 12/09/23 02:00 Carbon Dioxide 25 mmol/L (22-29) 12/09/23 02:00 Anion Gap 15.7 (5-19) 12/09/23 02:00 BUN 12 mg/dL (6-20) 12/09/23 02:00 Creatinine 0.7 mg/dL (0.5-0.9) 12/09/23 02:00 GFR Calculation 91.8 mL/min (90-130) 12/09/23 02:00 Glucose 97 mg/dL (65-115) 12/09/23 02:00 Calculated Osmolality 292 mOsm/kg (285-295) 12/09/23 02:00 Calcium 9.6 mg/dL (8.5-10.5) 12/09/23 02:00 Total Bilirubin 0.2 mg/dL (0.15-1.2) 12/09/23 02:00 AST 13 U/L (0-32) 12/09/23 02:00 ALT 10 U/L (0-33) 12/09/23 02:00 Alkaline Phosphatase 81 U/L (35-105) 12/09/23 02:00 Total Protein 7.5 g/dL (6.6-8.7) 12/09/23 02:00 Albumin 4.1 g/dL (3.5-5.2) 12/09/23 02:00 Globulin 3.4 g/dL (1.3-4.6) 12/09/23 02:00 TSH 2.81 uIU/mL (0.27-4.20) 12/09/23 02:00 HCG, Qual Negative (Negative) 12/09/23 02:00 Urine Color Yellow (Yellow) 12/09/23 02:05 Urine Appearance Clear (CLEAR) 12/09/23 02:05 Urine pH 5.5 (5-7) 12/09/23 02:05 Ur Specific [place] 1.008 (1.005-1.030) 12/09/23 02:05 Urine Protein Negative (Negative) 12/09/23 02:05 Urine Glucose (UA) Negative (Normal) 12/09/23 02:05 Urine Ketones Negative (Negative) 12/09/23 02:05 Urine Blood Negative (Negative) 12/09/23 02:05 Urine Nitrate Negative (Negative) 12/09/23 02:05 Urine Bilirubin Negative (Negative) 12/09/23 02:05 Urine Urobilinogen 0.2 mg/dL (Negative) 12/09/23 02:05 Ur Leukocyte Esterase Negative (Negative) 12/09/23 02:05 Urine RBC 0-2 /hpf (0-2) 12/09/23 02:05 Urine WBC 0-5 /hpf (0-5) 12/09/23 02:05 Ur Squamous Epith Cells 0-5 /hpf (0-5) 12/09/23 02:05 Amorphous Sediment Not Reportable 12/09/23 02:05 Urine Bacteria None seen /hpf (NONE) 12/09/23 02:05 Hyaline Casts 0-4 /lpf H 12/09/23 02:05 Salicylates < 0.3 mg/dL (3-10) L 12/09/23 02:00 Urine Opiates Screen Negative ng/mL (Negative) 12/09/23 02:05 Acetaminophen < 5.0 ug/mL (10-30) L 12/09/23 02:00 Ur Barbiturates Screen Negative ng/mL (Negative) 12/09/23 02:05 Ur Phencyclidine Scrn Negative ng/mL (Negative) 12/09/23 02:05 Ur Amphetamines Screen Negative ng/mL (Negative) 12/09/23 02:05 U Benzodiazepines Scrn Negative ng/mL (Negative) 12/09/23 02:05 Urine Cocaine Screen Negative ng/mL (Negative) 12/09/23 02:05 U Marijuana (THC) Screen Negative ng/mL (Negative) 12/09/23 02:05 Ethyl Alcohol < 10 mg/dL (0-10) 12/09/23 02:00 Discharge Plan Discharge Patient Disposition: Admitted As Inpatient Admit Provider: Devon Hughes Clinical Impression: Suicidal ideation Condition: Stable Sign Out Sign Out Data: Patient Sign Out occurred on 12/09/23 at 06:44. Patient's care was discussed, and care was transferred from Devora Cristina MD to Lobito Lord DO. Coding Level of Care Code ED Nuclear Fuels Research Engineer for Chg Fwd Documented by User: Lobito Lord DO 12/09/23 15:46 HPI - Psych 2 General: Chief Complaint: Psychiatric Symptoms Stated Complaint: psych evaluation Time Seen by Provider: 12/09/23 01:38 Related Data Home Medications Medication Instructions Recorded Confirmed aripiprazole 10 mg tablet 10 mg PO DAILY 12/09/23 12/09/23 hydroxyzine HCl 25 mg tablet 25 mg PO BID PRN Anxiety 12/09/23 12/09/23 nicotine 14 mg/24 hr daily 1 patch topical DAILY 12/09/23 12/09/23 transdermal patch nicotine 7 mg/24 hr daily 1 patch topical DAILY 12/09/23 12/09/23 transdermal patch trazodone 100 mg tablet 100 mg PO BEDTIME 12/09/23 12/09/23 Previous Rx's Medication Instructions Recorded aripiprazole 300 mg intramuscular 300 mg IM Q28D #1 ea 12/02/23 suspension,extended release (Abilify Maintena) nicotine See Rx Instructions transdermal 12/02/23 21mg/24hr-14mg/24hr-7mg/24hr daily .COMPLEX #56 patches transderm patches,sequentl Allergies Allergy/AdvReac Type Severity Reaction Status Date / Time codeine Allergy Intermediate rash Verified 12/02/23 09:04 PFS ED 2 PFSH: Medical History Anxiety Alcohol use disorder, moderate, dependence Poor compliance with medication with oral medications Psychiatric care Lack of access to transportation Psychiatric care Alcohol dependence, in remission Other stimulant dependence, in remission Nicotine dependence, cigarettes, uncomplicated Mild intellectual disabilities Schizophrenia, paranoid Social History Smoking and tobacco/nicotine status: never used tobacco/nicotine Course 2 Vital Signs: Vital signs: Vital Signs Temperature 97.9 F 12/09/23 15:23 Pulse Rate 78 12/09/23 15:23 Respiratory Rate 16 12/09/23 05:58 Blood Pressure 113/74 12/09/23 15:23 Pulse Oximetry 97 12/09/23 15:23 Oxygen Delivery Me thod Room Air 12/09/23 05:58 MDM - Psych Medical Decision Making Differential diagnosis: Patient with reported depression and suicidal ideation. concerns for infection, alcohol intoxication, cardiac issues or other medical problems prior to psychiatric admission. Workup: labwork, ekg ordered to evaluate the pathologies and to clear the patient medically prior to psychiatric admission Lab Review: Laboratory results were reviewed and interpreted by myself the emergency room physician. Lab review: - Medically cleared. - EKG shows no ischemic changes. - Blood alcohol level is negative, -Tylenol and salicylate levels are negative. - Drug screen is negative - No signs of infection, urinalysis clear and white count is not elevated - No anemia. - BUN and creatinine are within normal limits. Assessment and plan: Suicidal ideations ?EMS filled out a 96-hour affidavit. I placed a hold. -Admission to neuropsychiatric unit for continued evaluation and treatment. - All lab work was reviewed and interpreted personally by myself, the ER physician - Evaluation and treatment of this problem were appropriate in the emergency setting Awaiting to hear from psychiatry. Unsure if there is any beds right now. Patient care transitioned to Dr. Lord at shift change Care assumed at change of shift I discussed Dr. Hughes will admit for suicidal ideation Lab Data 12/09/23 02:00 12/09/23 02:00 Laboratory Results WBC 8.23 10^3/uL (3.29-11.43) 12/09/23 02:00 RBC 4.77 10^6/uL (3.85-5.65) 12/09/23 02:00 Hgb 14.20 g/dL (11.27-16.99) 12/09/23 02:00 Hct 42.4 % (36-47) 12/09/23 02:00 MCV 88.9 fl (85-98) 12/09/23 02:00 MCH 29.8 pg (27-33) 12/09/23 02:00 MCHC 33.5 g/dL (30-55) 12/09/23 02:00 RDW 12.7 % (12.1-15.1) 12/09/23 02:00 Plt Count 212 10^3/cmm (157-399) 12/09/23 02:00 MPV 11.5 fL (7.4-10.4) H 12/09/23 02:00 Neut % (Auto) 53.9 % 12/09/23 02:00 Lymph % (Auto) 36.2 % 12/09/23 02:00 [place] % (Auto) 7.8 % 12/09/23 02:00 Eos % (Auto) 1.2 % 12/09/23 02:00 Baso % (Auto) 0.5 % 12/09/23 02:00 Neut # (Auto) 4.44 10^3/uL (1.8-7.7) 12/09/23 02:00 Lymph # (Auto) 3.0 10^3/uL (0.8-4.8) 12/09/23 02:00 [place] # (Auto) 0.6 10^3/uL (0.2-0.9) 12/09/23 02:00 Eos # (Auto) 0.1 10^3/uL (0.0-0.8) 12/09/23 02:00 Baso # (Auto) 0.0 10^3/uL (0.0-0.1) 12/09/23 02:00 Nucleated RBC % (auto) 0 % 12/09/23 02:00 Nucleated RBCs # 0.0 /100WBC 12/09/23 02:00 Sodium 141 mmol/L (136-145) 12/09/23 02:00 Potassium 3.7 mmol/L (3.5-5.1) 12/09/23 02:00 Chloride 104 mmol/L (98-107) 12/09/23 02:00 Carbon Dioxide 25 mmol/L (22-29) 12/09/23 02:00 Anion Gap 15.7 (5-19) 12/09/23 02:00 BUN 12 mg/dL (6-20) 12/09/23 02:00 Creatinine 0.7 mg/dL (0.5-0.9) 12/09/23 02:00 GFR Calculation 91.8 mL/min (90-130) 12/09/23 02:00 Glucose 97 mg/dL (65-115) 12/09/23 02:00 Calculated Osmolality 292 mOsm/kg (285-295) 12/09/23 02:00 Calcium 9.6 mg/dL (8.5-10.5) 12/09/23 02:00 Total Bilirubin 0.2 mg/dL (0.15-1.2) 12/09/23 02:00 AST 13 U/L (0-32) 12/09/23 02:00 ALT 10 U/L (0-33) 12/09/23 02:00 Alkaline Phosphatase 81 U/L (35-105) 12/09/23 02:00 Total Protein 7.5 g/dL (6.6-8.7) 12/09/23 02:00 Albumin 4.1 g/dL (3.5-5.2) 12/09/23 02:00 Globulin 3.4 g/dL (1.3-4.6) 12/09/23 02:00 TSH 2.81 uIU/mL (0.27-4.20) 12/09/23 02:00 HCG, Qual Negative (Negative) 12/09/23 02:00 Urine Color Yellow (Yellow) 12/09/23 02:05 Urine Appearance Clear (CLEAR) 12/09/23 02:05 Urine pH 5.5 (5-7) 12/09/23 02:05 Ur Specific [place] 1.008 (1.005-1.030) 12/09/23 02:05 Urine Protein Negative (Negative) 12/09/23 02:05 Urine Glucose (UA) Negative (Normal) 12/09/23 02:05 Urine Ketones Negative (Negative) 12/09/23 02:05 Urine Blood Negative (Negative) 12/09/23 02:05 Urine Nitrate Negative (Negative) 12/09/23 02:05 Urine Bilirubin Negative (Negative) 12/09/23 02:05 Urine Urobilinogen 0.2 mg/dL (Negative) 12/09/23 02:05 Ur Leukocyte Esterase Negative (Negative) 12/09/23 02:05 Urine RBC 0-2 /hpf (0-2) 12/09/23 02:05 Urine WBC 0-5 /hpf (0-5) 12/09/23 02:05 Ur Squamous Epith Cells 0-5 /hpf (0-5) 12/09/23 02:05 Amorphous Sediment Not Reportable 12/09/23 02:05 Urine Bacteria None seen /hpf (NONE) 12/09/23 02:05 Hyaline Casts 0-4 /lpf H 12/09/23 02:05 Salicylates < 0.3 mg/dL (3-10) L 12/09/23 02:00 Urine Opiates Screen Negative ng/mL (Negative) 12/09/23 02:05 Acetaminophen < 5.0 ug/mL (10-30) L 12/09/23 02:00 Ur Barbiturates Screen Negative ng/mL (Negative) 12/09/23 02:05 Ur Phencyclidine Scrn Negative ng/mL (Negative) 12/09/23 02:05 Ur Amphetamines Screen Negative ng/mL (Negative) 12/09/23 02:05 U Benzodiazepines Scrn Negative ng/mL (Negative) 12/09/23 02:05 Urine Cocaine Screen Negative ng/mL (Negative) 12/09/23 02:05 U Marijuana (THC) Screen Negative ng/mL (Negative) 12/09/23 02:05 Ethyl Alcohol < 10 mg/dL (0-10) 12/09/23 02:00 No radiology studies performed this visit Discharge Plan Discharge Patient Disposition: Admitted As Inpatient Admit Provider: Devon Hughes Clinical Impression: Suicidal ideation Condition: Stable Sign Out Sign Out Data: Patient Sign Out occurred on 12/09/23 at 06:44. Patient's care was discussed, and care was transferred from Devora Cristina MD to Lobito Lord DO. Coding Level of Care Code ED Nuclear Fuels Research Engineer for Zaki Carballo
[2023-12-09 02:33] LABS: Alanine Aminotransferase 10 U/L (0-33); Albumin Level 4.1 g/dL (3.5-5.2); Alkaline Phosphatase 81 U/L (35-105); Anion Gap 15.7 (5-19); Aspartate Amino Transferase 13 U/L (0-32); Blood Urea Nitrogen 12 mg/dL (6-20); Calcium 9.6 mg/dL (8.5-10.5); Carbon Dioxide 25 mmol/L (22-29); Chloride 104 mmol/L (98-107); Creatinine Clr Calc Pharmacy 126.7595; Globulin 3.4 g/dL (1.3-4.6); Glomerular Filtration Rate 91.8 mL/min (90-130); Glucose 97 mg/dL (65-115); Osmolality Calculated 292 mOsm/kg (285-295); Potassium 3.7 mmol/L (3.5-5.1); Sodium 141 mmol/L (136-145); Thyroid Stimulating Hormone 2.81 uIU/mL (0.27-4.20); Total Bilirubin 0.2 mg/dL (0.15-1.2); Total Protein 7.5 g/dL (6.6-8.7)
[2023-12-09 02:36] LABS: Bacteria Urine None Seen /hpf; Hyaline Casts Urine 0-4 /lpf; RBC Urine 0-2 /hpf (0-2); Squamous Epithelial Cell Urine 0-5 /hpf (0-5); WBC Urine 0-5 /hpf (0-5)
[2023-12-09 02:39] LABS: Amphetamines Screen Urine Negative (Negative); Barbiturates Screen Urine Negative (Negative); Benzodiazepines Screen Urine Negative (Negative); Cocaine Screen Urine Negative (Negative); Opiate Screen Urine Negative (Negative); PCP Screen Urine Negative (Negative); THC Screen Urine Negative (Negative)
[2023-12-09 02:42] LABS: Bilirubin Urine Negative (Negative); Blood Urine Negative (Negative); Glucose Urine UA Negative (Normal); Ketones Urine Negative (Negative); Leukocyte Esterase Urine Negative (Negative); Nitrate Urine Negative (Negative); Protein Urine Negative (Negative); Specific Gravity, Urine 1.008 (1.005-1.030); Urine Appearance Clear (CLEAR); Urine Color Yellow (Yellow); Urobilinogen Urine 0.2 mg/dL (Negative); pH Urine 5.5 (5-7)
--- NOTE | 2023-12-09 02:42 | PC.NURSE ---
96 Hour Involuntary Hold Patient Rights have been read to the patient and a copy of the same has been given to her. Commercial Real Estate Lender Ventura was present at bedside at the time of presentation of Rights.
[2023-12-09 02:43] LABS: Acetaminophen < 5.0 ug/mL (10-30); Alcohol Level < 10 mg/dL (0-10); Salicylate < 0.3 mg/dL (3-10)
--- NOTE | 2023-12-09 05:48 | ECG_ITS ---
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 Measurements Intervals [place] Rate: 73 P: 73 CT: 214 QRS: -71 QRSD: 111 T: 67 QT: 414 QTc: 458 Interpretive Statements SINUS RHYTHM WITH FIRST DEGREE AV BLOCK LEFT AXIS DEVIATION [QRS AXIS < -30] LOW QRS VOLTAGE [QRS DEFLECTION < 0.5/1.0 mV IN LIMB/CHEST LEADS] MODERATE INTRAVENTRICULAR CONDUCTION DELAY [110+ ms QRS DURATION] Compared to ECG 11/22/2023 21:03:51 First degree AV block now present Intraventricular conduction delay now present Incomplete right bundle-branch block no longer present Myocardial infarct finding no longer present Electronically Signed On 12-09-2023 16:49:30 CDT by Mikey Diamond M.D. [email or web address]
--- NOTE | 2023-12-09 05:55 | PC.NURSE ---
DURING VS, PT REQUESTED A NICOTINE PATCH. DR SUBRAMANIAN WAS INFORMED AND VERBAL ORDER WAS RECEIVED AND VERIFIED.
[2023-12-09 05:58] VITALS: BP 107/74; PULSE 75; RESP 16; TEMP 36.5; O2SAT 96
[2023-12-09] MEDS: nicotine 21 mg Patch 1 PATCH TRANSDERMA (06:03)
--- NOTE | 2023-12-09 08:13 | PC.PHAR ---
Patient unable to verify meds. Med rec completed with last fill dates and day supply for [facility] .
[2023-12-09 13:05] VITALS: BP 106/69; PULSE 92; O2SAT 93
[2023-12-09 15:23] VITALS: BP 113/74; PULSE 78; TEMP 36.6; O2SAT 97
[2023-12-09 16:03] VITALS: BP 122/85; PULSE 84; RESP 16; TEMP 36.6; O2SAT 97
--- NOTE | 2023-12-09 20:05 | PC.NURSE ---
PT WAS BROUGHT IN BY EMS. PT WAS REPORTED TO HAVE CALLED EMS STATING THAT SHE WAS SUICIDAL. ONCE THEY ARRIVED SHE BEGAN DENYING SI. PT THEN STATED SOMETHING ABOUT WANTING TO EITHER HARM HERSELF OR GO INTO THE [employer]. UPON ADMIT TO THE NPU PT DENIES SI/HI/AH/VH. PT STATES THAT SHE HAS NOT BEEN TAKING HER MEDICATIONS. PT ENDORSES BOUTS OF ANGER. PT WAS WILLING AND COOPERATIVE WITH ASSESSMENT. PT ENDORSES SELF HARM STATING THE ABRASION LOCATED ON HER BILATERAL CHEEKS WERE SELF INFLICTED. PT HAS SOME EXCORIATION NOTED TO HER ANTERIOR GROIN AREA.
[2023-12-09 22:00] VITALS: BP 125/88; PULSE 81; RESP 16; TEMP 36.6; O2SAT 97
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
[2023-12-10 06:00] VITALS: BP 110/74; PULSE 70; RESP 17; O2SAT 95
[2023-12-10] MEDS: ARIPiprazole 10 mg Tablet PO (08:37)
[2023-12-10] MEDS: nicotine 21 mg Patch 21 PATCH TRANSDERMA (08:38)
--- NOTE | 2023-12-10 09:30 | PC.NURSE ---
Patient said that she was worried and stressed out about an impending inpatient stay in [place]. Patient says that she had questions and was not able to get in contact with anybody for answers. Patient says that she has been billy which to here means not wanting to get a pupil personnel services director on life. Patient says that when she is upset, she throws things around her house.
--- NOTE | 2023-12-10 09:36 | PC.NURSE ---
Patient said that she was worried and stressed out about an impending inpatient stay in [place]. Patient says that she had questions and was not able to get in contact with anybody for answers. Patient says that she has been billy which to here means not wanting to get a drug enforcement administration agent on life. Patient says that when she is upset, she throws things around her house.
[2023-12-10] MEDS: nicotine 4 mg lozenge MUCOUS MEM ×2 (10:26→18:30)
--- NOTE | 2023-12-10 10:35 | PC.NURSE ---
Patient informed this nurse of red and itchy rash. This nurse assessed patient. Patient has red rash with defined borders located around her panty line. Patient said she gets this when she is in the hospital. Patient denies any rash on other parts of her body. This nurse supplied patient with a better fitting pair of pants. JUAN ALBERTO Torres applied nystatin powder to area and encouraged patient air out the area.
[2023-12-10 14:00] VITALS: BP 134/85; PULSE 104; RESP 17; TEMP 36.7; O2SAT 96
[2023-12-10] MEDS: neomycin-poly-bacitracin oint 28 gm 1 APPLIC TOPICAL (16:47)
[2023-12-10] MEDS: acetaminophen 325 mg Tablet 650 MG PO (16:53)
[2023-12-10] MEDS: trazodone 100 mg Tablet PO (21:30)
[2023-12-10 21:50] VITALS: BP 95/65; PULSE 79; RESP 16; O2SAT 97
[2023-12-11 06:00] VITALS: BP 101/62; PULSE 71; RESP 15; O2SAT 96
[2023-12-11] MEDS: ARIPiprazole 10 mg Tablet PO (08:45)
[2023-12-11] MEDS: nystatin powder 15 gm Btl 1 APPLIC TOPICAL (08:45)
[2023-12-11] MEDS: nicotine 21 mg Patch 1 PATCH TRANSDERMA (09:04)
[2023-12-11] MEDS: docusate sodium 100 mg Capsule PO (13:05)
--- NOTE | 2023-12-11 13:05 | PC.NURSE ---
PRN COLACE 100 MG GIVEN PO PER PT C/O STATED CONSTIPATION
[2023-12-11 14:00] VITALS: BP 104/75; PULSE 70; RESP 16; TEMP 36.6; O2SAT 95
[2023-12-11] MEDS: nicotine 2 mg Gum BUCCAL ×2 (16:37→19:02)
--- NOTE | 2023-12-11 16:37 | PC.NURSE ---
Patient removed nicotine patch at 1357. This nurse disposed of it in the proper manner.
--- NOTE | 2023-12-11 19:08 | W.PM.NPUPNS ---
Subjective NPU Subjective: Patient presented today reporting that she is doing okay. She reports that she had been thinking about hopefully getting into some kind of a program. We discussed the fact that the social work team will be back tomorrow and will be meeting with the new people to figure out what resources they desired and/or need. She denies side effects of medication. Mental Status Exam MSE Comments: This is an obese white female with hospital scrubs on with limited grooming and eye contact.? Notable scratches on her face that she reports were self-inflicted. No abnormal movements except for resolving psychomotor retardation.? Mostly cooperative with exam in mild distress.? Speech was decreased rate and volume and childlike. Mood described as I am okay but I think I want to get into a program, affect mostly congruent. Thought process linear, thought content: Patient denied suicidal or homicidal ideation, there were no delusions reported or noted, she denied auditory or visual hallucinations. ? Attention and concentration were limited and memory appeared mostly reliable, but none were formally tested.? She is alert and oriented x person and place.? Insight and judgment limited, impulse control is limited versus impaired.? Intellectual ability is limited versus impaired. Vitals/I&O/Wt Last Vital Signs Temp 97.9 F 12/11/23 14:00 Pulse 70 12/11/23 14:00 Resp 16 12/11/23 14:00 BP 104/75 12/11/23 14:00 Pulse Ox 95 12/11/23 14:00 O2 Del Method Room Air 12/11/23 06:00 Weight last 48 hrs Weight 99.053 kg Data NPU 12/09/23 02:00 12/09/23 02:00 A&P Assessment and plan (1) Depression with suicidal ideation: (2) Lack of access to transportation: (3) Nicotine dependence, cigarettes, uncomplicated: (4) Mild intellectual disabilities: (5) Schizophrenia, paranoid: (6) Other stimulant dependence, in remission: (7) Alcohol dependence, in remission: Plan This is a 42-year-old white female with a long history of schizophrenia and 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 She presents somewhat endorsing that she has done a little better after being here and the safety of the unit overnight. 1.? Continue current medication. 2.? Continue every 15 minute checks for safety. 3.? Encourage individual, group and milieu therapies. 4.? We will reach out to [facility] provider. 5. Get collateral information. 6. No signs of active addiction on drug screen, BAL or patient's report. However patient reporting today that she desires some kind of treatment program. We discussed working with the social work team tomorrow. Involuntary Hold Information 96 Hour Hold: 96 Hour Involuntary Admission: Yes 96 Hour Hold Ending Date: 12/15/23 96 Hour Hold Ending Time: 01:42 Attestations NPU Medical Necessity Statement*: Inpatient hospitalization is medically necessary and the clinically appropriate intervention at this time. We will monitor medication to make changes as indicated. Likely length of stay 2-4 days. Coding Level of Care Code Acute Code for g Fwd Diagnoses Depression with suicidal ideation F32.A; R45.851 Lack of access to transportation Z91.89 Nicotine dependence, cigarettes, uncomplicated F17.210 Mild intellectual disabilities F70 Schizophrenia, paranoid F20.0 Other stimulant dependence, in remission F15.21 Alcohol dependence, in remission F10.21
[2023-12-11 19:56] VITALS: BP 106/69; PULSE 66; RESP 16; TEMP 36.3; O2SAT 97
[2023-12-11] MEDS: trazodone 100 mg Tablet PO (20:06)
[2023-12-12 06:00] VITALS: BP 117/83; PULSE 77; RESP 16; TEMP 36.5; O2SAT 96
[2023-12-12] MEDS: ARIPiprazole 10 mg Tablet PO (07:43)
[2023-12-12] MEDS: nicotine 21 mg Patch 1 PATCH TRANSDERMA (07:43)
[2023-12-12] MEDS: nystatin powder 15 gm Btl 1 APPLIC TOPICAL ×2 (07:44→20:30)
[2023-12-12 14:00] VITALS: BP 101/65; PULSE 71; RESP 17; TEMP 36.4; O2SAT 96
--- NOTE | 2023-12-12 15:51 | PC.NURSE ---
Nicotine patch removed at 1550. Patient wants to do the gum instead.
--- NOTE | 2023-12-12 16:15 | P.NPUPN_ITS ---
Subjective NPU 2 Subjective: Patient presented today reporting that she is doing okay. She reported that at this point there has been no identification of a bed date earlier than December 25. We discussed the challenges that come with trying to get into rehabs in a timely fashion and that we might consider keeping her if there is a short time prior to the bed date but that she would not be able to stay here for weeks. She denied any side effects of the medication. We discussed her getting a KARLA evaluation to determine how she is functioning. Mental Status Exam 2 MSE Comments: This is an obese white female with hospital scrubs on with limited grooming and eye contact.? Notable scratches on her face that she reports were self- inflicted. No abnormal movements except for resolving psychomotor retardation.? Mostly cooperative with exam in mild distress.? Speech was decreased rate and volume and childlike. Mood described as I am okay but I think I want to get into a program, affect mostly congruent. Thought process linear, thought content: Patient denied suicidal or homicidal ideation, there were no delusions reported or noted, she denied auditory or visual hallucinations. ? Attention and concentration were limited and memory appeared mostly reliable, but none were formally tested.? She is alert and oriented x person and place.? Insight and judgment limited, impulse control is limited versus impaired.? Intellectual ability is limited versus impaired. Vitals/I&O/Wt Last Vital Signs Temp 98.5 F 12/12/23 19:23 Pulse 87 12/12/23 19:23 Resp 18 12/12/23 19:23 BP 127/89 12/12/23 19:23 Pulse Ox 97 12/12/23 19:23 O2 Del Method Room Air 12/12/23 19:23 Weight last 48 hrs Weight 99.053 kg Data NPU 12/09/23 02:00 12/09/23 02:00 A&P Assessment and plan (1) Depression with suicidal ideation: (2) Lack of access to transportation: (3) Nicotine dependence, cigarettes, uncomplicated: (4) Mild intellectual disabilities: (5) Schizophrenia, paranoid: (6) Other stimulant dependence, in remission: (7) Alcohol dependence, in remission: Plan This is a 42-year-old white female with a long history of schizophrenia and 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 She presents somewhat endorsing that she has done a little better after being here and the safety of the unit overnight. 1.? Continue current medication. 2.? Continue every 15 minute checks for safety. 3.? Encourage individual, group and milieu therapies. 4.? We will reach out to [facility] provider. 5. Get collateral information. Will obtain a KARLA. 6. No signs of active addiction on drug screen, BAL or patient's report. However patient reporting today that she desires some kind of treatment program. We discussed working with the social work team to determine whether an earlier bed date then December 25 can be identified to determine discharge planning. Involuntary Hold Information 2 96 Hour Hold: 96 Hour Involuntary Admission: Yes 96 Hour Hold Ending Date: 12/15/23 96 Hour Hold Ending Time: 01:42 Attestations NPU 2 Medical Necessity Statement*: Inpatient hospitalization is medically necessary and the clinically appropriate intervention at this time. We will monitor medication to make changes as indicated. Likely length of stay 1-3 days. Coding Level of Care Code Acute Code for [facility] Fwd Diagnoses Depression with suicidal ideation F32.A; R45.851 Lack of access to transportation Z91.89 Nicotine dependence, cigarettes, uncomplicated F17.210 Mild intellectual disabilities F70 Schizophrenia, paranoid F20.0 Other stimulant dependence, in remission F15.21 Alcohol dependence, in remission F10.21
[2023-12-12] MEDS: nicotine 4 mg lozenge MUCOUS MEM (17:55)
[2023-12-12] MEDS: docusate sodium 100 mg Capsule PO (18:17)
[2023-12-12 19:23] VITALS: BP 127/89; PULSE 87; RESP 18; TEMP 36.9; O2SAT 97
[2023-12-12] MEDS: trazodone 100 mg Tablet PO (20:29)
[2023-12-13 06:00] VITALS: BP 105/81; PULSE 86; RESP 18; TEMP 36.4; O2SAT 98
[2023-12-13] MEDS: nicotine 4 mg lozenge MUCOUS MEM ×3 (06:40→15:58)
[2023-12-13] MEDS: ARIPiprazole 10 mg Tablet PO (08:31)
[2023-12-13] MEDS: ondansetron 4 MG Tablet PO (10:52)
[2023-12-13] MEDS: nystatin powder 15 gm Btl 1 APPLIC TOPICAL (11:25)
[2023-12-13] MEDS: nicotine 2 mg Gum BUCCAL (12:34)
[2023-12-13 14:00] VITALS: BP 108/76; PULSE 71; RESP 17; TEMP 36.4; O2SAT 99
--- NOTE | 2023-12-13 16:05 | P.NPUPN_ITS ---
Subjective NPU 2 Subjective: Patient presented today reporting that she is feeling better. She endorsed a desire to go to her house and wait for her bed date. We agreed we would work with the social work team tomorrow to find out if an opportunity to have the bed they moved up was possible. If not look towards discharge. She denied any side effects to the medication. Mental Status Exam 2 MSE Comments: This is an obese white female with hospital scrubs on with limited grooming and eye contact.? Notable scratches on her face that she reports were self- inflicted. No abnormal movements except for resolving psychomotor retardation.? Mostly cooperative with exam in mild distress.? Speech was decreased rate and volume and childlike. Mood described as I am okay but I think I want to get into a program, affect mostly congruent. Thought process linear, thought content: Patient denied suicidal or homicidal ideation, there were no delusions reported or noted, she denied auditory or visual hallucinations. ? Attention and concentration were limited and memory appeared mostly reliable, but none were formally tested.? She is alert and oriented x person and place.? Insight and judgment limited, impulse control is limited versus impaired.? Intellectual ability is limited versus impaired. 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 She presents somewhat endorsing that she has done a little better after being here and the safety of the unit overnight. 1.? Continue current medication. 2.? Continue every 15 minute checks for safety. 3.? Encourage individual, group and milieu therapies. 4.? We will reach out to [facility] provider. 5. Get collateral information. Will obtain a KARLA. 6. No signs of active addiction on drug screen, BAL or patient's report. However patient reporting today that she desires some kind of treatment program. We discussed working with the social work team to determine whether an earlier bed date then December 25 can be identified to determine discharge planning. Involuntary Hold Information 2 96 Hour Hold: 96 Hour Involuntary Admission: Yes 96 Hour Hold Ending Date: 12/15/23 96 Hour Hold Ending Time: 01:42 Attestations NPU 2 Medical Necessity Statement*: Inpatient hospitalization is medically necessary and the clinically appropriate intervention at this time. We will monitor medication to make changes as indicated. Likely length of stay 1-3 days. Coding Level of Care Code Acute Code for [facility] Fwd Diagnoses Lack of access to transportation Z91.89 Nicotine dependence, cigarettes, uncomplicated F17.210 Mild intellectual disabilities F70 Schizophrenia, paranoid F20.0 Other stimulant dependence, in remission F15.21 Alcohol dependence, in remission F10.21
[2023-12-13 19:23] VITALS: BP 133/85; PULSE 87; RESP 16; TEMP 36.3; O2SAT 97
[2023-12-13] MEDS: trazodone 100 mg Tablet PO (20:01)
[2023-12-14 06:00] VITALS: BP 111/79; PULSE 82; RESP 16; TEMP 36.3; O2SAT 97
[2023-12-14] MEDS: ARIPiprazole 10 mg Tablet PO (08:07)
[2023-12-14] MEDS: nicotine 21 mg Patch 1 PATCH TRANSDERMA (08:07)
[2023-12-14 14:00] VITALS: BP 104/70; PULSE 74; RESP 16; TEMP 36.9; O2SAT 100
[2023-12-14 19:12] VITALS: BP 109/76; PULSE 77; RESP 18; TEMP 36.9; O2SAT 99
--- NOTE | 2023-12-14 20:11 | P.NPUPN_ITS ---
Subjective NPU 2 Subjective: Patient presented today reporting that she is doing fine but wanting to discharge and we had a lengthy discussion about the findings and her KARLA. She had fairly upset saying that over the psychological test and that she is not good at psychological things. We discussed that it is ready serious question about her ability to care for herself independently and we are just trying to make sure that we do the right thing. She denied any side effects to the medication and we discussed how we might proceed otherwise. Mental Status Exam 2 MSE Comments: This is an obese white female with hospital scrubs on with limited grooming and eye contact.? Notable scratches on her face that she reports were self- inflicted. No abnormal movements except for resolving psychomotor retardation.? Mostly cooperative with exam in mild distress.? Speech was decreased rate and volume and childlike. Mood described as I am okay but I think I want to get into a program, affect mostly congruent. Thought process linear, thought content: Patient denied suicidal or homicidal ideation, there were no delusions reported or noted, she denied auditory or visual hallucinations. ? Attention and concentration were limited and memory appeared mostly reliable, but none were formally tested.? She is alert and oriented x person and place.? Insight and judgment limited, impulse control is limited versus impaired.? Intellectual ability is limited versus impaired. 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 She presents somewhat endorsing that she has done a little better after being here and the safety of the unit overnight. 1.? Continue current medication. 2.? Continue every 15 minute checks for safety. 3.? Encourage individual, group and milieu therapies. 4.? We will reach out to [facility] provider. 5. Get collateral information. Will obtain a KARLA. Tells report came back endorsing she had significant cognitive deficiencies and likely needs assistance at a level that makes discharge concerning. 6. No signs of active addiction on drug screen, BAL or patient's report. However patient reporting today that she desires some kind of treatment program. Involuntary Hold Information 2 96 Hour Hold: 96 Hour Involuntary Admission: Yes 96 Hour Hold Ending Date: 12/15/23 96 Hour Hold Ending Time: 01:42 Attestations NPU 2 Medical Necessity Statement*: Inpatient hospitalization is medically necessary and the clinically appropriate intervention at this time. We will monitor medication to make changes as indicated. Likely length of stay 5-7 days. Coding Level of Care Code Acute Code for [facility] Fwd Diagnoses Lack of access to transportation Z91.89 Nicotine dependence, cigarettes, uncomplicated F17.210 Mild intellectual disabilities F70 Schizophrenia, paranoid F20.0 Other stimulant dependence, in remission F15.21 Alcohol dependence, in remission F10.21
[2023-12-14] MEDS: trazodone 100 mg Tablet PO (20:43)
[2023-12-14] MEDS: hyDROXYzine 25 mg Capsule 50 MG PO (20:43)
[2023-12-15 06:00] VITALS: BP 99/62; PULSE 70; RESP 18; TEMP 36.6; O2SAT 96
[2023-12-15] MEDS: ARIPiprazole 10 mg Tablet PO (08:13)
[2023-12-15] MEDS: nicotine 4 mg lozenge MUCOUS MEM ×2 (08:14→16:20)
--- NOTE | 2023-12-15 08:52 | PC.NURSE ---
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 but she had offered her to either use a gun or not but she did not want one. 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
[2023-12-15] MEDS: OLANZapine 5 mg ODT PO (12:33)
--- NOTE | 2023-12-15 12:49 | PC.NURSE ---
PT PLACED ON A [address] HAYWOOD. THIS RN READ PTS RIGHTS TO HER. WHEN RN ASKED IF SHE HAD ANY QUESTIONS PT STATED, YEAH DO YOU HAVE ANY PENS. PT WAS INFORMED WE DID NOT AND THAT I WAS SORRY. PT THEN REPLIED YOU'RE WELCOME. SUPPORT VOICED.
[2023-12-15 14:00] VITALS: BP 120/84; PULSE 71; RESP 17; TEMP 36.4; O2SAT 100
[2023-12-15] MEDS: haloperidol 5 mg Tablet PO (15:01)
--- NOTE | 2023-12-15 18:02 | P.NPUPN_ITS ---
Subjective NPU 2 Subjective: Patient presented today reporting that she is doing okay but was very focused on wanting to go home. She clearly did not understand the situation that she then. We discussed the fact that her score indicated the need for 24-hour assistance and that her frequent hospitalizations with a similar outcome and conversations with family identify the need for us to move forward with guardianship. She reported that she was going to call her chief resource officer and her airport maintenance laborer. She denied any side effects to the medication. Mental Status Exam 2 MSE Comments: This is an obese white female with hospital scrubs on with limited grooming and eye contact.? Notable scratches on her face that she reports were self- inflicted. No abnormal movements except for resolving psychomotor retardation.? Mostly cooperative with exam in mild distress.? Speech was decreased rate and volume and childlike. Mood described as I am okay but I just want to go home, affect mostly congruent. Thought process linear, thought content: Patient denied suicidal or homicidal ideation, there were no delusions reported or noted, she denied auditory or visual hallucinations. ? Attention and concentration were limited and memory appeared mostly reliable, but none were formally tested.? She is alert and oriented x person and place.? Insight and judgment limited, impulse control is limited versus impaired.? Intellectual ability is impaired. 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 She presents somewhat endorsing that she has done a little better after being here and the safety of the unit overnight. 1.? Continue current medication. 2.? Continue every 15 minute checks for safety. 3.? Encourage individual, group and milieu therapies. 4.? We will reach out to [facility] provider. 5. Get collateral information. Will obtain a KARLA. Tells report came back endorsing she had significant cognitive deficiencies and likely needs assistance at a level that makes discharge concerning. Patient placed on a 96-hour hold secondary to significant fear of her inability to care for herself against the backdrop of her functional inability demonstrated by the KARLA report as well as combination of that with addiction. 6. No signs of active addiction on drug screen, BAL or patient's report. However patient reporting today that she desires some kind of treatment program. Involuntary Hold Information 2 96 Hour Hold: 96 Hour Involuntary Admission: Yes 96 Hour Hold Ending Date: 12/15/23 96 Hour Hold Ending Time: 01:42 Attestations NPU 2 Medical Necessity Statement*: Inpatient hospitalization is medically necessary and the clinically appropriate intervention at this time. We will monitor medication to make changes as indicated. Likely length of stay 5-7 days. Coding Level of Care Code Acute Code for [facility] Fwd Diagnoses Lack of access to transportation Z91.89 Nicotine dependence, cigarettes, uncomplicated F17.210 Mild intellectual disabilities F70 Schizophrenia, paranoid F20.0 Other stimulant dependence, in remission F15.21 Alcohol dependence, in remission F10.21
[2023-12-15 19:20] VITALS: BP 128/82; PULSE 112; RESP 18; TEMP 36.7; O2SAT 99
[2023-12-15] MEDS: trazodone 100 mg Tablet PO (20:20)
[2023-12-15] MEDS: hyDROXYzine 25 mg Capsule 50 MG PO (20:22)
[2023-12-16 05:38] VITALS: BP 92/56; PULSE 70; RESP 16; O2SAT 97
[2023-12-16] MEDS: ARIPiprazole 10 mg Tablet PO (09:18)
[2023-12-16] MEDS: acetaminophen 325 mg Tablet 650 MG PO (09:18)
[2023-12-16] MEDS: nicotine 4 mg lozenge MUCOUS MEM ×3 (09:21→18:42)
[2023-12-16 14:00] VITALS: BP 107/76; PULSE 78; RESP 17; TEMP 36.7; O2SAT 99
--- NOTE | 2023-12-16 16:24 | P.NPUPN_ITS ---
Subjective NPU 2 Subjective: Patient presented today reporting being frustrated with still being here. She is frustrated about being placed on a 96-hour hold and worried that she was being kept here. We discussed the fact that we have concerns and are moving forward with guardianship proceedings. We have been in communication with her mother which we have shared her mother is in agreement but not reporting the ability to serve as a guardian. Patient ultimately got frustrated with the conversation and ended in early but we continues to try to discuss the issues that were raised by the KARLA report. She denied any side effects of medication. Mental Status Exam 2 MSE Comments: This is an obese white female with hospital scrubs on with limited grooming and eye contact.? Notable scratches on her face that she reports were self- inflicted. No abnormal movements except for resolving psychomotor retardation.? Mostly cooperative with exam in mild distress.? Speech was decreased rate and volume and childlike. Mood described as I am okay but I just want to go home, affect mostly congruent. Thought process linear, thought content: Patient denied suicidal or homicidal ideation, there were no delusions reported or noted, she denied auditory or visual hallucinations. ? Attention and concentration were limited and memory appeared mostly reliable, but none were formally tested.? She is alert and oriented x person and place.? Insight and judgment limited, impulse control is limited versus impaired.? Intellectual ability is impaired. 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 She presents somewhat endorsing that she has done a little better after being here and the safety of the unit overnight. 1.? Continue current medication. 2.? Continue every 15 minute checks for safety. 3.? Encourage individual, group and milieu therapies. 4.? We will reach out to [facility] provider. 5. Get collateral information. Will obtain a KARLA. Tells report came back endorsing she had significant cognitive deficiencies and likely needs assistance at a level that makes discharge concerning. Patient placed on a 96-hour hold secondary to significant fear of her inability to care for herself against the backdrop of her functional inability demonstrated by the KARLA report as well as combination of that with addiction. 6. No signs of active addiction on drug screen, BAL or patient's report. However patient reporting that she is wanting to attend her inpatient rehab bed date on 12/26/2023. Involuntary Hold Information 2 96 Hour Hold: 96 Hour Involuntary Admission: Yes 96 Hour Hold Ending Date: 12/15/23 96 Hour Hold Ending Time: 01:42 Attestations NPU 2 Medical Necessity Statement*: Inpatient hospitalization is medically necessary and the clinically appropriate intervention at this time. We will monitor medication to make changes as indicated. Likely length of stay 5-7 days. Coding Level of Care Code Acute Code for [facility] Fwd Diagnoses Lack of access to transportation Z91.89 Nicotine dependence, cigarettes, uncomplicated F17.210 Mild intellectual disabilities F70 Schizophrenia, paranoid F20.0 Other stimulant dependence, in remission F15.21 Alcohol dependence, in remission F10.21
[2023-12-16] MEDS: trazodone 100 mg Tablet PO (20:16)
[2023-12-16] MEDS: hyDROXYzine 25 mg Capsule 50 MG PO (20:16)
[2023-12-16 20:56] VITALS: BP 118/87; PULSE 74; RESP 18; TEMP 36.6; O2SAT 100
[2023-12-16] MEDS: nystatin powder 15 gm Btl 1 APPLIC TOPICAL (21:29)
[2023-12-17 06:00] VITALS: BP 134/79; PULSE 83; RESP 16; TEMP 36.6; O2SAT 97
[2023-12-17] MEDS: ARIPiprazole 10 mg Tablet PO (08:19)
[2023-12-17] MEDS: nicotine 4 mg lozenge MUCOUS MEM ×4 (08:19→20:40)
[2023-12-17] MEDS: docusate sodium 100 mg Capsule PO (08:39)
[2023-12-17 14:00] VITALS: BP 113/77; PULSE 84; RESP 16; TEMP 36.8; O2SAT 98
--- NOTE | 2023-12-17 14:47 | P.NPUPN_ITS ---
Subjective NPU 2 Subjective: Patient presented today reporting that she is okay. We continue to discuss the plan for guardianship and placement and the fact that we are working with her mother was in agreement that this is the best option. We discussed the importance of her continuing her medication but identified that with her level of dysfunction having some structure and regular oversight will be helpful. She denied any side effects to the medication. Mental Status Exam 2 MSE Comments: This is an obese white female with hospital scrubs on with limited grooming and eye contact.? Notable scratches on her face that she reports were self- inflicted. No abnormal movements except for resolving psychomotor retardation.? Mostly cooperative with exam in mild distress.? Speech was decreased rate and volume and childlike. Mood described as I am okay but I just want to go home, affect mostly congruent. Thought process linear, thought content: Patient denied suicidal or homicidal ideation, there were no delusions reported or noted, she denied auditory or visual hallucinations. ? Attention and concentration were limited and memory appeared mostly reliable, but none were formally tested.? She is alert and oriented x person and place.? Insight and judgment limited, impulse control is limited versus impaired.? Intellectual ability is impaired. 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 She presents somewhat endorsing that she has done a little better after being here and the safety of the unit overnight. 1.? Continue current medication. 2.? Continue every 15 minute checks for safety. 3.? Encourage individual, group and milieu therapies. 4.? We will reach out to [facility] provider. 5. Get collateral information. Will obtain a KARLA. Tells report came back endorsing she had significant cognitive deficiencies and likely needs assistance at a level that makes discharge concerning. Patient placed on a 96-hour hold secondary to significant fear of her inability to care for herself against the backdrop of her functional inability demonstrated by the KARLA report as well as combination of that with addiction. 6. No signs of active addiction on drug screen, BAL or patient's report. However patient reporting that she is wanting to attend her inpatient rehab bed date on 12/26/2023. Involuntary Hold Information 2 96 Hour Hold: 96 Hour Involuntary Admission: Yes 96 Hour Hold Ending Date: 12/15/23 96 Hour Hold Ending Time: 01:42 Attestations NPU 2 Medical Necessity Statement*: Inpatient hospitalization is medically necessary and the clinically appropriate intervention at this time. We will monitor medication to make changes as indicated. Likely length of stay 7-10 days. Coding Level of Care Code Acute Code for Chg Fwd Diagnoses Lack of access to transportation Z91.89 Nicotine dependence, cigarettes, uncomplicated F17.210 Mild intellectual disabilities F70 Schizophrenia, paranoid F20.0 Other stimulant dependence, in remission F15.21 Alcohol dependence, in remission F10.21
[2023-12-17] MEDS: hyDROXYzine 25 mg Capsule 50 MG PO (20:25)
[2023-12-17] MEDS: trazodone 100 mg Tablet PO (20:25)
[2023-12-17 20:47] VITALS: BP 123/70; PULSE 70; RESP 17; TEMP 36.3; O2SAT 100
[2023-12-18 06:00] VITALS: BP 118/83; PULSE 81; RESP 17; TEMP 36.6; O2SAT 98
[2023-12-18] MEDS: nicotine 4 mg lozenge MUCOUS MEM ×4 (06:22→16:24)
[2023-12-18] MEDS: acetaminophen 325 mg Tablet 650 MG PO (06:22)
[2023-12-18] MEDS: ARIPiprazole 10 mg Tablet PO (08:25)
[2023-12-18 13:54] VITALS: BP 107/72; PULSE 104; RESP 16; TEMP 36.8; O2SAT 96
--- NOTE | 2023-12-18 17:54 | P.NPUPN_ITS ---
Subjective NPU 2 Subjective: 42-year-old female with psychosis,, mild cognitive impairment, and alcohol abuse admitted involuntarily. The patient had reported that she was unsure why she was here but wanted to get help with managing her alcohol cravings. The patient had stated that she had been living by herself. She had been informed that there was a plan in place for her to be under guardianship but appeared to minimize this as a possibility. The patient had appeared minimally interactive on the milieu. She had minimized any paranoia or any auditory or visual hallucinations. Mental Status Exam 2 MSE Comments: This is an obese white female with hospital scrubs on with limited grooming and eye contact.? Notable scratches on her face that she reports were self- inflicted. No abnormal movements except for resolving psychomotor retardation.? She was mostly cooperative with exam in mild distress.? Speech was decreased in rate and volume and childlike. Mood described as okay but I just want to go home, affect mostly congruent. Thought process linear, thought content: Patient denied suicidal or homicidal ideation, there were no delusions reported or noted, she denied auditory or visual hallucinations. ? Attention and concentration were limited and memory appeared mostly reliable, but none were formally tested.? She is alert and oriented x person and place.? Insight and judgment limited, impulse control is limited versus impaired.? Intellectual ability is impaired. Vitals/I&O/Wt Last Vital Signs Temp 98.3 F 12/18/23 13:54 Pulse 104 H 12/18/23 13:54 Resp 16 12/18/23 13:54 BP 107/72 12/18/23 13:54 Pulse Ox 96 12/18/23 13:54 O2 Del Method Room Air 12/18/23 13:54 Weight last 48 hrs Weight 101.605 kg Data NPU 12/09/23 02:00 12/09/23 02:00 A&P Assessment and plan (1) Lack of access to transportation: (2) Nicotine dependence, cigarettes, uncomplicated: (3) Mild intellectual disabilities: (4) Schizophrenia, paranoid: (5) Other stimulant dependence, in remission: (6) Alcohol dependence, in remission: (7) Impulse control disorder, unspecified: Plan This is a 42-year-old white female with a long history of schizophrenia and 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 She presents somewhat endorsing that she has done a little better after being here and the safety of the unit overnight. 1.? Continue current medication including abilify 10mg daily and abilify IM. 2.? Continue every 15 minute checks for safety. 3.? Encourage individual, group and milieu therapies. 4.? We will reach out to [facility] provider. 5. Get collateral information. Will obtain a KARLA. Tells report came back endorsing she had significant cognitive deficiencies and likely needs assistance at a level that makes discharge concerning. Patient placed on a 96-hour hold secondary to significant fear of her inability to care for herself against the backdrop of her functional inability demonstrated by the KARLA report as well as combination of that with addiction. 6. No signs of active addiction on drug screen, BAL or patient's report. However patient reporting that she is wanting to attend her inpatient rehab bed date on 12/26/2023. Involuntary Hold Information 2 96 Hour Hold: 96 Hour Involuntary Admission: Yes 96 Hour Hold Ending Date: 12/15/23 96 Hour Hold Ending Time: 01:42 Attestations NPU 2 Medical Necessity Statement*: Inpatient hospitalization is medically necessary and the clinically appropriate intervention at this time. We will monitor medication to make changes as indicated. The patient's likely length of stay 7-10 days. Patient may be candidate for guardianship and placement. Coding Level of Care Code Acute Code for Chg Fwd Diagnoses Lack of access to transportation Z91.89 Nicotine dependence, cigarettes, uncomplicated F17.210 Mild intellectual disabilities F70 Schizophrenia, paranoid F20.0 Other stimulant dependence, in remission F15.21 Alcohol dependence, in remission F10.21 Impulse control disorder, unspecified F63.9
[2023-12-18 20:14] VITALS: BP 128/87; PULSE 91; RESP 16; TEMP 36.9; O2SAT 98
[2023-12-18] MEDS: trazodone 100 mg Tablet PO (20:50)
[2023-12-18] MEDS: nystatin powder 15 gm Btl 1 APPLIC TOPICAL (20:51)
[2023-12-19 06:00] VITALS: BP 100/68; PULSE 84; RESP 16; TEMP 36.9; O2SAT 96
[2023-12-19] MEDS: acetaminophen 325 mg Tablet 650 MG PO ×2 (06:04→13:29)
[2023-12-19] MEDS: nicotine 4 mg lozenge MUCOUS MEM ×7 (06:27→19:25)
[2023-12-19] MEDS: ARIPiprazole 10 mg Tablet PO (08:21)
--- NOTE | 2023-12-19 13:32 | PC.NURSE ---
Patient upset, wanting to be discharged and to return to her home. Patient stating, does the doctor even know i have worked from 7 years old, except the last 20 years! Patient says that she just wants to smoke a cigarette. Patient tearful.
[2023-12-19] MEDS: nicotine 21 mg Patch 1 PATCH TRANSDERMA (13:54)
--- NOTE | 2023-12-19 13:58 | PC.NURSE ---
Sharon Parker approved to let patient have double nicotine, (patch and lozenge and same time)
[2023-12-19 14:00] VITALS: BP 105/68; PULSE 96; RESP 16; TEMP 36.6; O2SAT 97
--- NOTE | 2023-12-19 17:17 | P.NPUPN_ITS ---
Subjective NPU 2 Subjective: 42-year-old female with psychosis,, mild cognitive impairment, and alcohol abuse admitted involuntarily. The patient had insisted that she would be ready to go home in a few days. Patient was informed that she was not a candidate to return home based on her performance on the evaluation for independent living skills. She had stated that this must be incorrect as she was a [employer] third level. She was unable to elaborate but intimated that she had some special abilities. The patient appeared upset and stated that she wished for the team to discuss this with her mother. Mental Status Exam 2 MSE Comments: This is an obese white female with hospital scrubs on with limited grooming and eye contact.? Notable scratches on her face that she reports were self- inflicted. No abnormal movements except for resolving psychomotor retardation.? She was mostly cooperative with exam in mild to moderate distress.? Speech was decreased in rate and volume and childlike. Mood described as fine, but I just want to go home, Her affect was irritable. Thought process linear, thought content: Patient denied suicidal or homicidal ideation, There was some ideas of reference and odd beliefs. ? Attention and concentration were limited and memory appeared mostly reliable, but none were formally tested.? She is alert and oriented x person and place.? Insight and judgment limited, impulse control is limited versus impaired.? Intellectual ability is impaired. Vitals/I&O/Wt Last Vital Signs Temp 98 F 12/19/23 14:00 Pulse 96 12/19/23 14:00 Resp 16 12/19/23 14:00 BP 105/68 12/19/23 14:00 Pulse Ox 97 12/19/23 14:00 O2 Del Method Room Air 12/19/23 14:00 Weight last 48 hrs Weight 101.605 kg Data NPU 12/09/23 02:00 12/09/23 02:00 A&P Assessment and plan (1) Lack of access to transportation: (2) Nicotine dependence, cigarettes, uncomplicated: (3) Mild intellectual disabilities: (4) Schizophrenia, paranoid: (5) Other stimulant dependence, in remission: (6) Alcohol dependence, in remission: (7) Impulse control disorder, unspecified: Plan This is a 42-year-old white female with a long history of schizophrenia and 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 She presents somewhat endorsing that she has done a little better after being here and the safety of the unit overnight. 1.? Continue current medication including abilify 10mg daily and abilify IM. 2.? Continue every 15 minute checks for safety. 3.? Encourage individual, group and milieu therapies. 4.? We will reach out to [facility] provider. 5. Get collateral information. Will obtain a KARLA. Tells report came back endorsing she had significant cognitive deficiencies and likely needs assistance at a level that makes discharge concerning. Patient placed on a 96-hour hold secondary to significant fear of her inability to care for herself against the backdrop of her functional inability demonstrated by the KARLA report as well as combination of that with addiction. 6. No signs of active addiction on drug screen, BAL or patient's report. Patient 21 day to be filed with plan for guardianship. Involuntary Hold Information 2 96 Hour Hold: 96 Hour Involuntary Admission: Yes 96 Hour Hold Ending Date: 12/15/23 96 Hour Hold Ending Time: 01:42 Attestations NPU 2 Medical Necessity Statement*: Inpatient hospitalization is medically necessary and the clinically appropriate intervention at this time. We will monitor medication to make changes as indicated. The patient's likely length of stay 7-10 days. Patient may be candidate for guardianship and placement. Coding Level of Care Code Acute Code for Chg Fwd Diagnoses Lack of access to transportation Z91.89 Nicotine dependence, cigarettes, uncomplicated F17.210 Mild intellectual disabilities F70 Schizophrenia, paranoid F20.0 Other stimulant dependence, in remission F15.21 Alcohol dependence, in remission F10.21 Impulse control disorder, unspecified F63.9
[2023-12-19] MEDS: nystatin powder 15 gm Btl 1 APPLIC TOPICAL (18:20)
[2023-12-19] MEDS: trazodone 100 mg Tablet PO (19:26)
[2023-12-19 19:40] VITALS: BP 116/87; PULSE 86; RESP 18; TEMP 36.6; O2SAT 99
[2023-12-20 06:00] VITALS: BP 119/83; PULSE 56; RESP 18; TEMP 36.4; O2SAT 99
[2023-12-20] MEDS: nicotine 21 mg Patch 1 PATCH TRANSDERMA (07:56)
[2023-12-20] MEDS: ARIPiprazole 10 mg Tablet PO (09:13)
[2023-12-20] MEDS: nystatin powder 15 gm Btl 1 APPLIC TOPICAL (11:52)
[2023-12-20 14:00] VITALS: BP 125/78; PULSE 99; RESP 18; TEMP 37.1; O2SAT 97
--- NOTE | 2023-12-20 16:36 | P.NPUPN_ITS ---
Subjective NPU 2 Subjective: 42-year-old female with psychosis,, mild cognitive impairment, and alcohol abuse admitted involuntarily. The patient had reiterated her desire to return home. 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 She had stated that she does not remember because she has dementia . She had reported that her ex- Alexandre plays [employer] games. Mental Status Exam 2 MSE Comments: This is an obese white female with hospital scrubs on with limited grooming and eye contact.? Notable scratches on her face that she reports were self- inflicted. No abnormal movements except for resolving psychomotor retardation.? She was mostly cooperative with exam in mild to moderate distress.? Speech was more productive in rate and volume and childlike. Mood described as mad. Her affect was bizarre. Thought process was tangential with rambling noted. 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 There was evidence of paranoia. ? Attention and concentration were limited and memory appeared mostly reliable, but none were formally tested.? She is alert and oriented x person and place.? Insight and judgment limited, impulse control is limited versus impaired.? Intellectual ability is impaired. Vitals/I&O/Wt Last Vital Signs Temp 98.7 F 12/20/23 14:00 Pulse 99 12/20/23 14:00 Resp 18 12/20/23 14:00 BP 125/78 12/20/23 14:00 Pulse Ox 97 12/20/23 14:00 O2 Del Method Room Air 12/20/23 06:00 Data NPU 12/09/23 02:00 12/09/23 02:00 A&P Assessment and plan (1) Lack of access to transportation: (2) Nicotine dependence, cigarettes, uncomplicated: (3) Mild intellectual disabilities: (4) Schizophrenia, paranoid: (5) Other stimulant dependence, in remission: (6) Alcohol dependence, in remission: (7) Impulse control disorder, unspecified: Plan This is a 42-year-old white female with a long history of schizophrenia and 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 She presents somewhat endorsing that she has done a little better after being here and the safety of the unit overnight. 1.? Continue current medication including additional oral abilify 10mg daily and abilify IM given on 12/02/23. 2.? Continue every 15 minute checks for safety. 3.? Encourage individual, group and milieu therapies. 4.? We will reach out to [facility] provider. 5. Get collateral information. Will obtain a KARLA. Tells report came back endorsing she had significant cognitive deficiencies and likely needs assistance at a level that makes discharge concerning. Patient placed on a 96-hour hold secondary to significant fear of her inability to care for herself against the backdrop of her functional inability demonstrated by the KARLA report as well as combination of that with addiction. 6. No signs of active addiction on drug screen, BAL or patient's report. Patient 21 day to be filed with plan for guardianship. Involuntary Hold Information 2 96 Hour Hold: 96 Hour Involuntary Admission: Yes 96 Hour Hold Ending Date: 12/15/23 96 Hour Hold Ending Time: 01:42 Attestations NPU 2 Medical Necessity Statement*: Inpatient hospitalization is medically necessary and the clinically appropriate intervention at this time. We will monitor medication to make changes as indicated. The patient's likely length of stay 7-10 days. Patient may be candidate for guardianship and placement. Coding Level of Care Code Acute Code for Chg Fwd Diagnoses Lack of access to transportation Z91.89 Nicotine dependence, cigarettes, uncomplicated F17.210 Mild intellectual disabilities F70 Schizophrenia, paranoid F20.0 Other stimulant dependence, in remission F15.21 Alcohol dependence, in remission F10.21 Impulse control disorder, unspecified F63.9
[2023-12-20] MEDS: haloperidol 5 mg Tablet PO (17:52)
[2023-12-20 19:20] VITALS: BP 121/89; PULSE 99; RESP 18; TEMP 36.6; O2SAT 100
[2023-12-20] MEDS: trazodone 100 mg Tablet PO (19:42)
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
[2023-12-21 06:00] VITALS: BP 123/92; PULSE 83; RESP 18; TEMP 36.4; O2SAT 99
[2023-12-21] MEDS: ibuprofen 600 mg Tablet PO ×2 (06:07→21:35)
[2023-12-21] MEDS: nicotine 4 mg lozenge MUCOUS MEM ×3 (07:13→18:10)
[2023-12-21] MEDS: ARIPiprazole 10 mg Tablet PO (08:51)
[2023-12-21] MEDS: nicotine 21 mg Patch 1 PATCH TRANSDERMA (08:51)
[2023-12-21 14:00] VITALS: BP 105/77; PULSE 90; RESP 17; TEMP 36.4; O2SAT 99
--- NOTE | 2023-12-21 15:32 | P.NPUPN_ITS ---
Subjective NPU 2 Subjective: 42-year-old female with paranoid schizop hrenia, mild cognitive impairment, and alcohol abuse admitted involuntarily. Patient had stated that she wished to return home. She had stated that she had not slept last night. She had complained of some nausea. She had continued to state that she did not wish to have guardianship. She had isolated herself on the milieu. She had stated that the Abilify 10 mg oral was somehow different than her intramuscular Abilify which had not yet been given to her. 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 . Mental Status Exam 2 MSE Comments: This is an obese white female with hospital scrubs on with limited grooming and eye contact.? Notable scratches on her face that she reports were self- inflicted. No abnormal movements except for resolving psychomotor retardation.? She was mostly cooperative with exam in mild to moderate distress.? Speech was more productive in rate and volume and childlike. Mood described as okay. Her affect was bizarre and subdued. Thought process was tangential with rambling noted and eventual derailment. 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 There was evidence of paranoia. ? Attention and concentration were limited and memory appeared mostly reliable, but none were formally tested.? She is alert and oriented x person and place.? Insight and judgment limited, Impulse control is limited versus impaired.? Intellectual ability is impaired. Vitals/I&O/Wt Last Vital Signs Temp 97.6 F 12/21/23 14:00 Pulse 90 12/21/23 14:00 Resp 17 12/21/23 14:00 BP 105/77 12/21/23 14:00 Pulse Ox 99 12/21/23 14:00 O2 Del Method Room Air 12/21/23 06:00 Data NPU 12/09/23 02:00 12/09/23 02:00 Involuntary Hold Information 2 96 Hour Hold: 96 Hour Involuntary Admission: Yes 96 Hour Hold Ending Date: 12/15/23 96 Hour Hold Ending Time: 01:42 Attestations NPU 2 Medical Necessity Statement*: Inpatient hospitalization is medically necessary and the clinically appropriate intervention at this time. We will monitor medication to make changes as indicated. The patient's likely length of stay 7-10 days. Patient is candidate for guardianship and placement. Coding Level of Care Code Acute Code for Chg Fwd
[2023-12-21 20:41] VITALS: BP 105/71; PULSE 90; RESP 16; TEMP 36.7; O2SAT 98
[2023-12-21] MEDS: trazodone 100 mg Tablet PO (21:29)
[2023-12-21] MEDS: hyDROXYzine 25 mg Capsule 50 MG PO (21:36)
[2023-12-22 06:00] VITALS: BP 104/66; PULSE 98; RESP 18; TEMP 36.8; O2SAT 97
[2023-12-22] MEDS: ARIPiprazole 10 mg Tablet PO (07:59)
[2023-12-22] MEDS: hyDROXYzine 25 mg Capsule 50 MG PO (07:59)
--- NOTE | 2023-12-22 13:44 | PC.NURSE ---
Addendum entered by Kerry Mcgill RN 12/22/23 14:30: PT RETURNED TO THE UNIT @ [id number] Original Note: PT STEPPED OFF THE UNIT AT [address]
[2023-12-22 14:00] VITALS: BP 133/95; PULSE 83; RESP 17; TEMP 36.6; O2SAT 99
--- NOTE | 2023-12-22 16:29 | P.NPUPN_ITS ---
Subjective NPU 2 Subjective: 42-year-old female with paranoid schizop hrenia, mild cognitive impairment, and alcohol abuse admitted involuntarily. Patient was placed on a 21-day hold today. She had continued to appear confused on the unit. She had continued to have bizarre and unusual conversations in her room with no one around her. She had stated that she wished to live with her mother and father. She had admitted to sobriety for a good deal of time but stated that she had occasional cravings for alcohol. 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 Mental Status Exam 2 MSE Comments: This is an obese white female with hospital scrubs on with limited grooming and eye contact.? Notable scratches on her face that she reports were self- inflicted. No abnormal movements except for resolving psychomotor retardation.? She was mostly cooperative with exam in mild to moderate distress.? Speech was more productive in rate and volume and childlike. Mood described as mad. Her affect was bizarre and subdued. Thought process was tangential with rambling noted and eventual derailment. 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 There was evidence of paranoia. ? Attention and concentration were limited and memory appeared mostly reliable, but none were formally tested.? She is alert and oriented x person and place.? Insight and judgment limited, Impulse control is limited versus impaired.? Intellectual ability is impaired. Vitals/I&O/Wt Last Vital Signs Temp 98.2 F 12/22/23 06:00 Pulse 98 12/22/23 06:00 Resp 18 12/22/23 06:00 BP 104/66 12/22/23 06:00 Pulse Ox 97 12/22/23 06:00 O2 Del Method Room Air 12/22/23 06:00 Data NPU 12/09/23 02:00 12/09/23 02:00 A&P Assessment and plan (1) Lack of access to transportation: (2) Nicotine dependence, cigarettes, uncomplicated: (3) Mild intellectual disabilities: (4) Schizophrenia, paranoid: (5) Other stimulant dependence, in remission: (6) Alcohol dependence, in remission: (7) Impulse control disorder, unspecified: Plan This is a 42-year-old white female with a long history of schizophrenia and 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 She presents somewhat endorsing that she has done a little better after being here and the safety of the unit overnight. 1.? Abilify IM 300mg as single agent appears to be less than optimal. Previous outpatient records reviewed. Will consider D/C abilify oral and begin Caplyta if available otherwise restart latuda. 2.? Continue every 15 minute checks for safety. 3.? Encourage individual, group and milieu therapies. 4.? We will reach out to [facility] provider. 5. Get collateral information. Will obtain a KARLA. Tells report came back endorsing she had significant cognitive deficiencies and likely needs assistance at a level that makes discharge concerning. Patient placed on a 96-hour hold secondary to significant fear of her inability to care for herself against the backdrop of her functional inability demonstrated by the KARLA report as well as combination of that with addiction. 6. No signs of active addiction on drug screen, BAL or patient's report. Patient on 21 day hold. Involuntary Hold Information 2 96 Hour Hold: 96 Hour Involuntary Admission: Yes 96 Hour Hold Ending Date: 12/15/23 96 Hour Hold Ending Time: 01:42 Attestations NPU 2 Medical Necessity Statement*: Inpatient hospitalization is medically necessary and the clinically appropriate intervention at this time. We will monitor medication to make changes as indicated. The patient's likely length of stay 10-14 days. Patient is candidate for guardianship and placement. Coding Level of Care Code Acute Code for g Fwd Diagnoses Lack of access to transportation Z91.89 Nicotine dependence, cigarettes, uncomplicated F17.210 Mild intellectual disabilities F70 Schizophrenia, paranoid F20.0 Other stimulant dependence, in remission F15.21 Alcohol dependence, in remission F10.21 Impulse control disorder, unspecified F63.9
[2023-12-22] MEDS: nicotine 4 mg lozenge MUCOUS MEM (20:36)
[2023-12-22] MEDS: trazodone 100 mg Tablet PO (20:36)
[2023-12-22 20:49] VITALS: BP 122/85; PULSE 101; RESP 16; TEMP 37; O2SAT 98
[2023-12-23 05:00] VITALS: BP 116/76; PULSE 86; RESP 15; TEMP 36.6; O2SAT 98
[2023-12-23] MEDS: nicotine 4 mg lozenge MUCOUS MEM ×4 (08:47→21:05)
[2023-12-23] MEDS: ARIPiprazole 10 mg Tablet 5 MG PO (08:48)
--- NOTE | 2023-12-23 08:49 | PC.NURSE ---
Patient refused nystatin powder. She says she does not feel like she needs it at this time and that she'll request it if she feels she needs it.
--- NOTE | 2023-12-23 13:30 | P.NPUPN_ITS ---
Subjective NPU 2 Subjective: 42-year-old female with paranoid schizop hrenia, mild cognitive impairment, and alcohol abuse admitted involuntarily. The patient remains here on a 21-day hold. The patient is under the umbrella of pursuit of guardianship at this time due to her multiple inpatient hospitalizations and inability to live by herself successfully. She had reported that she had felt that the Abilify had not been helpful for her. She had continued to appear to have periods of agitation and irritability. She had been compliant with her medications on the milieu but continued to show evidence of paranoia stating that others around her were somehow sabotaging and preventing her from being able to return home. 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 Mental Status Exam 2 MSE Comments: This is an obese white female with hospital scrubs on with limited grooming and eye contact.? No abnormal movements except for mild psychomotor retardation.? She was mostly cooperative with exam in mild to moderate distress.? Speech was more productive in rate and volume and childlike. Mood described as upset. Her affect was bizarre and subdued. Thought process was mostly linear before derailing. Thought content: Patient denied suicidal or homicidal ideation, There was some ideas of reference and odd beliefs including belief of her being a celebrity. There was evidence of paranoia. ? Attention and concentration were limited and memory appeared mostly reliable, but none were formally tested.? She is alert and oriented x person and place.? Insight and judgment limited, Impulse control is limited versus impaired.? Intellectual ability is impaired. Vitals/I&O/Wt Last Vital Signs Temp 97.9 F 12/23/23 05:00 Pulse 86 12/23/23 05:00 Resp 15 12/23/23 05:00 BP 116/76 12/23/23 05:00 Pulse Ox 98 12/23/23 05:00 O2 Del Method Room Air 12/23/23 05:00 Data NPU 12/09/23 02:00 12/09/23 02:00 A&P Assessment and plan (1) Schizophrenia, paranoid: (2) Alcohol dependence, in remission: (3) Nicotine dependence, cigarettes, uncomplicated: (4) Mild intellectual disabilities: (5) Other stimulant dependence, in remission: (6) Lack of access to transportation: (7) Impulse control disorder, unspecified: Plan This is a 42-year-old white female with a long history of schizophrenia and 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 She presents somewhat endorsing that she has done a little better after being here and the safety of the unit overnight. 1.? Abilify IM 300mg as single agent appears to be less than optimal. Previous outpatient records reviewed. D/C abilify today and begin Caplyta 42mg daily. 2.? Continue every 15 minute checks for safety. 3.? Encourage individual, group and milieu therapies. 4.? Seeking guardianship. 5. Patient placed on a 21 day hold secondary to significant fear of her inability to care for herself against the backdrop of her functional inability demonstrated by the KARLA report as well as combination of that with addiction. 6. Encourage sobriety at the highest level of care available. Begin level 2 for process of guardianship. Involuntary Hold Information 2 96 Hour Hold: 96 Hour Involuntary Admission: Yes 96 Hour Hold Ending Date: 12/15/23 96 Hour Hold Ending Time: 01:42 Attestations NPU 2 Medical Necessity Statement*: Inpatient hospitalization is medically necessary and the clinically appropriate intervention at this time. We will monitor medication to make changes as indicated. The patient's likely length of stay 10-14 days. Patient is candidate for guardianship and placement. Coding Level of Care Code Acute Code for [facility] Fwd Diagnoses Schizophrenia, paranoid F20.0 Alcohol dependence, 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
[2023-12-23 14:00] VITALS: BP 117/78; PULSE 73; RESP 16; TEMP 37.1; O2SAT 98
[2023-12-23] MEDS: NON-FORMULARY MEDICATION 42 EACH PO (17:44)
[2023-12-23 20:14] VITALS: BP 117/81; PULSE 76; RESP 16; O2SAT 100
[2023-12-23] MEDS: trazodone 100 mg Tablet PO (20:34)
[2023-12-23] MEDS: OLANZapine 5 mg ODT PO (21:40)
--- NOTE | 2023-12-24 01:45 | PC.NURSE ---
at approximately 2100 this nurse and MACHINE ADJUSTER Jenny heard a noise in the north side hallway. Nursing staff went into hallway to check on all the patients and when we walked by pts room she had slammed her bedside table into the wall under the sink. When staff asked the pt why she did that she responded with i dont like the medications im on and i want a fucking cigarette. Nursing staff told pt to move her bedside table back and we will get her a nicotine lozenge. A couple minutes later pt starts walking up the hallway yelling at this nurse i want to talk to the roz doctor now. This nurse educated the patient that the doctor is not here right now and she can speak with him in the morning. The patient responded i cant wait that kendyking long get him on the phone now. While standing at the nurses station staff noticed the patient had superficial scratches on her right cheek and she stated that she scratched herself because she was mad. At this time the charge nurse stepped in to attempt to verbally deescalate the patient. After speaking with the charge nurse and a firewall security engineer, nursing staff decided to move patient to the other side since pt had previously been agitated about having a roommate. The patient was moved to the south hallway between 2129 and 2144.
--- NOTE | 2023-12-24 02:19 | PC.NURSE ---
Patient Behavior Around 2109 on Dec 23, 2023 I heard this patient raising their voice at Wendy RN sitting behind nurses station. She was saying things to the effect that she did not like her medication, wanted it switched, wanted to be seen by the [facility] doctor immediately, and did not want a roommate. When asked if she wanted to talk, this nurse went out and sat on the bench with her. It was noted that she had superficial red harvey on her right check. When asked, patient stated she scratched her face because she was mad. Security arrived. This nurse was able to de-escalate the patient verbally and patient was move to the acute side and given a private room. She agreed to medication for anxiety, see MAR. Patient later was in the dayroom laughing and coloring with other patients, took a shower and went to bed with no further incident. Nurse Wendy stated that this patient had shoved her side table across the patient room into the sink and wall moments before this outburst and was beginning to escalate because we did not have hot chocolate to provide for her.
[2023-12-24 06:00] VITALS: BP 91/64; PULSE 101; RESP 18; O2SAT 94
[2023-12-24] MEDS: nicotine 21 mg Patch 1 PATCH TRANSDERMA (08:00)
[2023-12-24] MEDS: hyDROXYzine 25 mg Capsule 50 MG PO ×2 (08:01→20:26)
[2023-12-24] MEDS: haloperidol 5 mg Tablet PO (08:01)
[2023-12-24] MEDS: docusate sodium 100 mg Capsule PO (08:01)
--- NOTE | 2023-12-24 08:03 | PC.NURSE ---
DR. MORELAND GAVE ORDERS TO DISCONTINUE ABILIFY. PT DID NOT TAKE THIS AM. EDUCATION PROVIDED ON NEW MEDICATION CAPLYPTA THAT WAS STARTED LAST NIGHT AT 1700. SUPPORT VOICED.
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
--- NOTE | 2023-12-24 11:29 | PC.NURSE ---
PT MOVED TO NORTH SIDE DUE TO MOVING CHAIRS AND TABLES ATTEMPTING TO BLOCK ANOTHER PT IN. STAFF WENT TO DAY ROOM AND MOVED CHAIRS AND TABLES SO THE OTHER PT COULD MOVE FREELY ABOUT. PT WAS HEARD MAKING STATEMENTS I WANT TO TAKE HIM HOME AND TREAT HIM LIKE ZEB THE DOG. PT WAS REDIRECTED TO THE OTHER SIDE AWAY FROM PATIENT. EDUCATION PROVIDED. SUPPORT WAS VOICED.
--- NOTE | 2023-12-24 13:45 | PC.NURSE ---
Patient told this nurse that she is constipated, that her last BM was three days ago. This nurse overheard patient tell PRINTING PLATE CLERK that her last BM was 6 days ago. Ordered Milk of Mag
[2023-12-24 13:46] VITALS: BP 123/72; PULSE 85; RESP 16; TEMP 36.6; O2SAT 96
--- NOTE | 2023-12-24 14:02 | P.NPUPN_ITS ---
Subjective NPU 2 Subjective: 42-year-old female with paranoid schizop hrenia, mild cognitive impairment, and alcohol abuse admitted involuntarily. The patient had been writing bizarre things that had spoken of people being demons and others going to hell and there was prominent use of racial slurs. 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 She had been compliant on the milieu. She had reported no problems with her her Caplyta today. She was redirectable but still remained distant and isolative. She appeared to be having conversations with herself but minimized hearing voices on interview today. Mental Status Exam 2 MSE Comments: This is an obese white female with hospital scrubs on with limited grooming and eye contact.? No abnormal movements except for mild psychomotor retardation.? She was mostly cooperative with exam in mild to moderate distress.? Speech was more productive in rate and volume and childlike. Mood described as okay. Her affect was bizarre and subdued. Thought process was mostly linear before derailing. 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 There was evidence of paranoia. ? Attention and concentration were limited and memory appeared mostly reliable, but none were formally tested.? She is alert and oriented x person and place.? Insight and judgment limited, Impulse control is limited versus impaired.? Intellectual ability is impaired. Vitals/I&O/Wt Last Vital Signs Temp 98 F 12/24/23 13:46 Pulse 85 12/24/23 13:46 Resp 16 12/24/23 13:46 BP 123/72 12/24/23 13:46 Pulse Ox 96 12/24/23 13:46 O2 Del Method Room Air 12/24/23 13:46 Data NPU 12/09/23 02:00 12/09/23 02:00 A&P Assessment and plan (1) Schizophrenia, paranoid: (2) Alcohol dependence, in remission: (3) Nicotine dependence, cigarettes, uncomplicated: (4) Mild intellectual disabilities: (5) Other stimulant dependence, in remission: (6) Lack of access to transportation: (7) Impulse control disorder, unspecified: Plan This is a 42-year-old white female with a long history of schizophrenia and 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 She presents somewhat endorsing that she has done a little better after being here and the safety of the unit overnight. 1.? Abilify IM 300mg as single agent appears to be less than optimal. Previous outpatient records reviewed. D/C abilify today and continue Caplyta 42mg daily. 2.? Continue every 15 minute checks for safety. 3.? Encourage individual, group and milieu therapies. 4.? Seeking guardianship. 5. Patient placed on a 21 day hold secondary to significant fear of her inability to care for herself against the backdrop of her functional inability demonstrated by the KARLA report as well as combination of that with addiction. 6. Encourage sobriety at the highest level of care available. Begin level 2 for process of guardianship. Involuntary Hold Information 2 96 Hour Hold: 96 Hour Involuntary Admission: Yes 96 Hour Hold Ending Date: 12/15/23 96 Hour Hold Ending Time: 01:42 Attestations NPU 2 Medical Necessity Statement*: Inpatient hospitalization is medically necessary and the clinically appropriate intervention at this time. We will monitor medication to make changes as indicated. The patient's likely length of stay 10-14 days. Patient is candidate for guardianship and placement. Coding Level of Care Code Acute Code for [facility] Fwd Diagnoses Schizophrenia, paranoid F20.0 Alcohol dependence, 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
[2023-12-24] MEDS: NON-FORMULARY MEDICATION 42 EACH PO (17:08)
--- NOTE | 2023-12-24 17:10 | PC.NURSE ---
Patient came up to this nurse wanting to know the name of Lisandra Rodriguez's boyfriend, Angelaugusta moreland. This nurse looked and couldn't find any Angel people. Patient said, It is Angel Escobar, Lisandra Rodriguez's boyfriend. he has my paperwork. This nurse asked where he is. Patient said, [place].
[2023-12-24 19:36] VITALS: BP 134/96; PULSE 90; RESP 18; TEMP 36.9; O2SAT 99
[2023-12-24] MEDS: magnesium hydroxide 30 mL UDC PO (21:08)
[2023-12-25 06:00] VITALS: BP 106/74; PULSE 71; RESP 18; TEMP 36.4; O2SAT 97; BMI 34.2
[2023-12-25] MEDS: nicotine 4 mg lozenge MUCOUS MEM ×3 (08:48→19:47)
[2023-12-25] MEDS: nystatin powder 15 gm Btl 1 APPLIC TOPICAL (08:48)
[2023-12-25] MEDS: magnesium hydroxide 30 mL UDC PO (09:03)
--- NOTE | 2023-12-25 13:51 | P.NPUPN_ITS ---
Subjective NPU 2 Subjective: 42-year-old female with paranoid schizop hrenia, mild cognitive impairment, and alcohol abuse admitted involuntarily. The patient reported no cravings for alcohol. 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 She was redirectable on the milieu. She had allegedly slept throughout the night. She had stated that others continue to prevent her from going home and then spoke about former who had plotted to have the patient here. She had continued to show travel writer poetry and songs the patient was writing on paper here. The information upon inspection had shown evidence of bizarre racially charged themes filled with hatred. Mental Status Exam 2 MSE Comments: This is an obese white female with hospital scrubs on with limited grooming and eye contact.? No abnormal movements except for mild psychomotor retardation.? She was mostly cooperative with exam in mild to moderate distress.? Speech was more productive in rate and volume and childlike. Mood described as allright. Her affect was bizarre and subdued. Thought process was mostly linear before derailing. 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 There was evidence of paranoia. ? Attention and concentration were limited and memory appeared mostly reliable, but none were formally tested.? She is alert and oriented x person and place.? Insight and judgment limited, Impulse control is limited versus impaired.? Intellectual ability is impaired. Vitals/I&O/Wt Last Vital Signs Temp 97.6 F 12/25/23 06:00 Pulse 71 12/25/23 06:00 Resp 18 12/25/23 06:00 BP 106/74 12/25/23 06:00 Pulse Ox 97 12/25/23 06:00 O2 Del Method Room Air 12/25/23 06:00 12/24/23 12/25/23 12/25/23 22:59 06:59 14:59 Intake Total 480 / 480 Balance 480 / 480 Weight last 48 hrs Weight 99.053 kg Data NPU 12/09/23 02:00 12/09/23 02:00 A&P Assessment and plan (1) Schizophrenia, paranoid: (2) Alcohol dependence, in remission: (3) Nicotine dependence, cigarettes, uncomplicated: (4) Mild intellectual disabilities: (5) Other stimulant dependence, in remission: (6) Lack of access to transportation: (7) Impulse control disorder, unspecified: Plan This is a 42-year-old white female with a long history of schizophrenia and 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 She presents somewhat endorsing that she has done a little better after being here and the safety of the unit overnight. 1.? Abilify IM 300mg as single agent appears to be less than optimal. Previous outpatient records reviewed. Continue Caplyta 42mg daily. 2.? Continue every 15 minute checks for safety. 3.? Encourage individual, group and milieu therapies. 4.? Seeking guardianship. 5. Patient placed on a 21 day hold secondary to significant fear of her inability to care for herself against the backdrop of her functional inability demonstrated by the KARLA report as well as combination of that with addiction. 6. Encourage sobriety at the highest level of care available. Begin level 2 for process of guardianship. Involuntary Hold Information 2 96 Hour Hold: 96 Hour Involuntary Admission: Yes 96 Hour Hold Ending Date: 12/15/23 96 Hour Hold Ending Time: 01:42 Attestations NPU 2 Medical Necessity Statement*: Inpatient hospitalization is medically necessary and the clinically appropriate intervention at this time. We will monitor medication to make changes as indicated. The patient's likely length of stay 10-14 days. Patient is candidate for guardianship and placement. Coding Level of Care Code Acute Code for [facility]w Diagnoses Schizophrenia, paranoid F20.0 Alcohol dependence, 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
[2023-12-25 14:00] VITALS: BP 104/65; BP 104/68; PULSE 101; RESP 18; TEMP 36.8; O2SAT 100
[2023-12-25] MEDS: NON-FORMULARY MEDICATION 42 EACH PO (17:30)
[2023-12-25] MEDS: trazodone 100 mg Tablet PO (19:44)
[2023-12-25 19:55] VITALS: BP 111/75; PULSE 78; RESP 16; O2SAT 93
[2023-12-26 06:00] VITALS: BP 113/77; PULSE 110; RESP 17; TEMP 36.6; O2SAT 96
[2023-12-26] MEDS: ibuprofen 600 mg Tablet PO (06:03)
[2023-12-26] MEDS: nicotine 4 mg lozenge MUCOUS MEM (06:03)
--- NOTE | 2023-12-26 09:51 | PC.NURSE ---
PT CURRENTLY DENIES SI/HI/SH/VH. PT CURRENTLY DENIES ANXIETY AND DEPRESSION. PT CURRENTLY APPEARS TO BE DEPRESSED. PT STATED I JUST DON'T GET ALONG WITH SOME PEOPLE HERE. THIS NURSE EXPLAINED THAT PT DOES NOT HAVE TO INTERACT WITH ANY PATIENTS THAT MAKE HER FRUSTRATED OR UNCOMFORTABLE. PT THEN SPOKE TO THIS NURSE ABOUT HER HOPES TO GO HOME. THIS NURSE STATED THAT SHE SHOULD SPEAK WITH THE METHODS EXAMINER ABOUT HER DISCHARGE PLANS I KNOW THEY HAVE BEEN WORKING ON MANY THINGS FOR HER, PT IS CURRENTLY GOING THOROUGH THE [facility] PROCESS AND DOES NOT SEEM TO BE EITHER UNDERSTANDING OR ACCEPTING OF THIS PROCESS AT THIS TIME. THIS NURSE ASKED IF THERE WAS ANYTHING THAT WOULD MAKE HER MORE COMFORTABLE PT STATED NICOTINE. THIS NURSE NOTIFIED MEDICATION NURSE. PT CURRENT NEEDS ARE MET AT THIS TIME.
[2023-12-26 14:00] VITALS: BP 113/80; PULSE 86; RESP 16; TEMP 36.7; O2SAT 97
--- NOTE | 2023-12-26 14:29 | P.NPUPN_ITS ---
Subjective NPU 2 Subjective: 42-year-old female with paranoid schizop hrenia, mild cognitive impairment, and alcohol abuse admitted involuntarily. The patient had reported that she had some muscle ache on the Caplyta. She had reported that her previous medications had not been helpful for helping her with her thoughts. 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 She reports that she feels that she may require help to manage herself independently. Mental Status Exam 2 MSE Comments: This is an obese white female with hospital scrubs on with limited grooming and eye contact.? No abnormal movements except for mild psychomotor retardation.? She was mostly cooperative with exam in mild to moderate distress.? Speech was more productive in rate and volume and childlike. Mood described as okay. Her affect was bizarre and subdued. Thought process was linear but superficial. 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 There was evidence of paranoia. ? Attention and concentration were limited and memory appeared mostly reliable, but none were formally tested.? She is alert and oriented x person and place.? Insight and judgment limited, Impulse control is limited versus impaired.? Intellectual ability is impaired. Vitals/I&O/Wt Last Vital Signs Temp 97.8 F 12/26/23 06:00 Pulse 110 H 12/26/23 06:00 Resp 17 12/26/23 06:00 BP 113/77 12/26/23 06:00 Pulse Ox 96 12/26/23 06:00 O2 Del Method Room Air 12/25/23 14:00 Weight last 48 hrs Weight 99.053 kg Data NPU 12/09/23 02:00 12/09/23 02:00 A&P Assessment and plan (1) Schizophrenia, paranoid: (2) Alcohol dependence, in remission: (3) Nicotine dependence, cigarettes, uncomplicated: (4) Mild intellectual disabilities: (5) Other stimulant dependence, in remission: (6) Lack of access to transportation: (7) Impulse control disorder, unspecified: Plan This is a 42-year-old white female with a long history of schizophrenia and 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 She presents somewhat endorsing that she has done a little better after being here and the safety of the unit overnight. 1.? Abilify IM 300mg as single agent appears to be less than optimal. Continue Caplyta 42mg daily. 2.? Continue every 15 minute checks for safety. 3.? Encourage individual, group and milieu therapies. 4.? Seeking guardianship. 5. Patient placed on a 21 day hold secondary to significant fear of her inability to care for herself against the backdrop of her functional inability demonstrated by the [facility] report as well as combination of that with addiction. 6. Encourage sobriety at the highest level of care available. Begin level 2 for process of guardianship. Involuntary Hold Information 2 96 Hour Hold: 96 Hour Involuntary Admission: Yes 96 Hour Hold Ending Date: 12/15/23 96 Hour Hold Ending Time: 01:42 Attestations NPU 2 Medical Necessity Statement*: Inpatient hospitalization is medically necessary and the clinically appropriate intervention at this time. We will monitor medication to make changes as indicated. The patient's likely length of stay 10-14 days. Patient is candidate for guardianship and placement. Coding Level of Care Code Acute Code for [facility] Fwd Diagnoses Schizophrenia, paranoid F20.0 Alcohol dependence, 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
[2023-12-26 19:44] VITALS: BP 113/76; PULSE 78; RESP 16; TEMP 36.9; O2SAT 97
[2023-12-26] MEDS: trazodone 100 mg Tablet 150 MG PO (20:29)
[2023-12-27 06:00] VITALS: BP 128/88; PULSE 118; RESP 16; TEMP 36.6; O2SAT 97
[2023-12-27] MEDS: nicotine 4 mg lozenge MUCOUS MEM ×3 (08:31→20:16)
[2023-12-27 14:00] VITALS: BP 108/74; PULSE 89; RESP 17; TEMP 36.8; O2SAT 96
--- NOTE | 2023-12-27 15:17 | P.NPUPN_ITS ---
Subjective NPU 2 Subjective: 42-year-old female with paranoid schizop hrenia, mild cognitive impairment, and alcohol abuse admitted involuntarily. The patient had allegedly refused the Caplyta yesterday. She had continued to appear to have unusual ideas and stated that her mother had told her that she could come home soon. The patient was informed about the likelihood that the team was supporting the patient to be placed in a chcf with guardianship necessary. The patient had reported that she did not need help at home currently. The patient reported no side effects from her medication although she had told staff that Caplyta had made her back hurt. The patient had reported some sleep continuity disruption and reported difficulties with staying asleep. Patient remained convinced that she would be going home despite repeated efforts to state otherwise. Mental Status Exam 2 MSE Comments: This is an obese white female with hospital scrubs on with limited grooming and eye contact.? No abnormal movements except for mild psychomotor retardation.? She was mostly cooperative with exam in mild to moderate distress.? Speech was more productive in rate and volume and childlike. Mood described as ok. Her affect was subdued. Thought process was linear but superficial. Thought content: Patient denied suicidal or homicidal ideation, There was some ideas of reference and odd beliefs There was evidence of paranoia. ? 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 Attention and concentration were limited and memory appeared mostly reliable, but none were formally tested.? She is alert and oriented x person and place.? Insight and judgment limited, Impulse control is limited versus impaired.? Intellectual ability is impaired. Vitals/I&O/Wt Last Vital Signs Temp 98.3 F 12/27/23 14:00 Pulse 89 12/27/23 14:00 Resp 17 12/27/23 14:00 BP 108/74 12/27/23 14:00 Pulse Ox 96 12/27/23 14:00 O2 Del Method Room Air 12/27/23 06:00 Data NPU 12/09/23 02:00 12/09/23 02:00 A&P Assessment and plan (1) Schizophrenia, paranoid: (2) Alcohol dependence, in remission: (3) Nicotine dependence, cigarettes, uncomplicated: (4) Mild intellectual disabilities: (5) Other stimulant dependence, in remission: (6) Lack of access to transportation: (7) Impulse control disorder, unspecified: Plan This is a 42-year-old white female with a long history of schizophrenia and 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 She presents somewhat endorsing that she has done a little better after being here and the safety of the unit overnight. 1.? Abilify IM 300mg as single agent appears to be less than optimal. Continue Caplyta 42mg daily, if no improvement will switch to Latuda for psychosis. 2.? Continue every 15 minute checks for safety. 3.? Encourage individual, group and milieu therapies. 4.? Seeking guardianship. 5. Patient placed on a 21 day hold secondary to significant fear of her inability to care for herself against the backdrop of her functional inability demonstrated by the [facility] report as well as combination of that with addiction. 6. Encourage sobriety at the highest level of care available. Begin level 2 for process of guardianship. Involuntary Hold Information 2 96 Hour Hold: 96 Hour Involuntary Admission: Yes 96 Hour Hold Ending Date: 12/15/23 96 Hour Hold Ending Time: 01:42 Attestations NPU 2 Medical Necessity Statement*: Inpatient hospitalization is medically necessary and the clinically appropriate intervention at this time. We will monitor medication to make changes as indicated. The patient's likely length of stay 10-14 days. Patient is candidate for guardianship and placement. Coding Level of Care Code Acute Code for [facility] Fwd Diagnoses Schizophrenia, paranoid F20.0 Alcohol dependence, 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
[2023-12-27] MEDS: NON-FORMULARY MEDICATION 42 EACH PO (15:29)
--- NOTE | 2023-12-27 15:29 | PC.NURSE ---
doctor ordered patient to take medication now. pt did take medication without any complaint.
[2023-12-27 20:02] VITALS: BP 102/70; PULSE 109; RESP 18; TEMP 36.6; O2SAT 96
[2023-12-27] MEDS: hyDROXYzine 25 mg Capsule 50 MG PO (20:16)
[2023-12-27] MEDS: trazodone 100 mg Tablet 150 MG PO (20:36)
[2023-12-28 06:00] VITALS: BP 101/68; PULSE 80; RESP 18; TEMP 36.6; O2SAT 96
[2023-12-28] MEDS: nicotine 4 mg lozenge MUCOUS MEM ×4 (08:05→19:59)
[2023-12-28] MEDS: OLANZapine 5 mg ODT PO ×2 (09:45→16:45)
[2023-12-28 14:00] VITALS: BP 124/80; PULSE 103; RESP 17; TEMP 36.4; O2SAT 98
[2023-12-28] MEDS: haloperidol 5 mg Tablet PO (14:40)
[2023-12-28] MEDS: NON-FORMULARY MEDICATION 42 EACH PO (16:44)
--- NOTE | 2023-12-28 17:08 | P.NPUPN_ITS ---
Subjective NPU 2 Subjective: 42-year-old female with paranoid schizop hrenia, mild cognitive impairment, and alcohol abuse admitted involuntarily. Patient had appeared more sad on the unit today having frequent episodes of crying. She had requested that she be allowed to go home. She had once again been informed that the team was pursuing guardianship. She had been compliant with her medication regimen. 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 She had not expressed any clear understanding as to how she had been able to succeed in her attempts to be an officer describing having special abilities. She reported no side effects from the Caplyta at this time. Mental Status Exam 2 MSE Comments: This is an obese white female with hospital scrubs on with limited grooming and eye contact.? No abnormal movements except for mild psychomotor retardation.? She was mostly cooperative with exam in mild to moderate distress.? Speech was more productive in rate and volume and childlike. Mood described as not good. Her affect was more labile and tearful. Thought process was linear but superficial. Thought content: Patient denied suicidal or homicidal ideation, There was some ideas of reference and odd beliefs There was evidence of paranoia. ? 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 Attention and concentration were limited and memory appeared mostly reliable, but none were formally tested.? She is alert and oriented x person and place.? Insight and judgment limited, Impulse control is limited versus impaired.? Intellectual ability is impaired. Vitals/I&O/Wt Last Vital Signs Temp 97.5 F L 12/28/23 14:00 Pulse 103 H 12/28/23 14:00 Resp 17 12/28/23 14:00 BP 124/80 12/28/23 14:00 Pulse Ox 98 12/28/23 14:00 O2 Del Method Room Air 12/27/23 06:00 Data NPU 12/09/23 02:00 12/09/23 02:00 A&P Assessment and plan (1) Schizophrenia, paranoid: (2) Alcohol dependence, in remission: (3) Nicotine dependence, cigarettes, uncomplicated: (4) Mild intellectual disabilities: (5) Other stimulant dependence, in remission: (6) Lack of access to transportation: (7) Impulse control disorder, unspecified: Plan This is a 42-year-old white female with a long history of schizophrenia and 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 She presents somewhat endorsing that she has done a little better after being here and the safety of the unit overnight. 1.? Abilify IM 300mg as single agent appears to be less than optimal. Continue Caplyta 42mg daily, will add depakote 250mg bid with increase planned up to 500mg bid. 2.? Continue every 15 minute checks for safety. 3.? Encourage individual, group and milieu therapies. 4.? Seeking guardianship. 5. Patient placed on a 21 day hold secondary to significant fear of her inability to care for herself against the backdrop of her functional inability demonstrated by the [facility] report as well as combination of that with addiction. 6. Encourage sobriety at the highest level of care available. Begin level 2 for process of guardianship. Involuntary Hold Information 2 96 Hour Hold: 96 Hour Involuntary Admission: Yes 96 Hour Hold Ending Date: 12/15/23 96 Hour Hold Ending Time: 01:42 Attestations NPU 2 Medical Necessity Statement*: Inpatient hospitalization is medically necessary and the clinically appropriate intervention at this time. We will monitor medication to make changes as indicated. The patient's likely length of stay 10-14 days. Patient is candidate for guardianship and placement. Coding Level of Care Code Acute Code for [facility] Fwd Diagnoses Schizophrenia, paranoid F20.0 Alcohol dependence, 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
[2023-12-28] MEDS: trazodone 100 mg Tablet 150 MG PO (19:58)
[2023-12-28] MEDS: hyDROXYzine 25 mg Capsule 50 MG PO (19:59)
[2023-12-28 20:52] VITALS: BP 114/80; PULSE 84; RESP 15; TEMP 36.3; O2SAT 96
[2023-12-29 06:00] VITALS: BP 103/69; PULSE 98; RESP 18; O2SAT 97
[2023-12-29] MEDS: nicotine 4 mg lozenge MUCOUS MEM ×3 (09:13→14:23)
[2023-12-29] MEDS: acetaminophen 325 mg Tablet 650 MG PO (09:42)
[2023-12-29] MEDS: docusate sodium 100 mg Capsule PO (13:28)
--- NOTE | 2023-12-29 13:52 | P.NPUPN_ITS ---
Subjective NPU 2 Subjective: 42-year-old female with paranoid schizop hrenia, mild cognitive impairment, and alcohol abuse admitted involuntarily. Patient had continued to report desire to be able to go home despite being informed that guardianship was being pursued. 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 She had been stating that her mother was planning to visit and she felt that the unit was dirty so she had proceeded to take paper towels and wet them and was cleaning the jett. She states that her mother would be embarrassed by the dirt here. She had reported adequate sleep. She reported no side effects from her medication. Mental Status Exam 2 MSE Comments: This is an obese white female with hospital scrubs on with limited grooming and eye contact.? No abnormal movements except for mild psychomotor retardation.? She was mostly cooperative with exam in mild to moderate distress.? Speech was more productive in rate and volume and childlike. Mood described as okay. Her affect was bizarre. Thought process was linear but derailed later. Thought content: Patient denied suicidal or homicidal ideation, There was some ideas of reference and odd beliefs There was evidence of paranoia. ? 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 Attention and concentration were limited and memory appeared mostly reliable, but none were formally tested.? She is alert and oriented x person and place.? Insight and judgment limited, Impulse control is limited versus impaired.? Intellectual ability is impaired. Vitals/I&O/Wt Last Vital Signs Temp 97.4 F L 12/28/23 20:52 Pulse 98 12/29/23 06:00 Resp 18 12/29/23 06:00 BP 103/69 12/29/23 06:00 Pulse Ox 97 12/29/23 06:00 O2 Del Method Room Air 12/29/23 06:00 Data NPU 12/09/23 02:00 12/09/23 02:00 A&P Assessment and plan (1) Schizophrenia, paranoid: (2) Alcohol dependence, in remission: (3) Nicotine dependence, cigarettes, uncomplicated: (4) Mild intellectual disabilities: (5) Other stimulant dependence, in remission: (6) Lack of access to transportation: (7) Impulse control disorder, unspecified: Plan This is a 42-year-old white female with a long history of schizophrenia and 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 She presents somewhat endorsing that she has done a little better after being here and the safety of the unit overnight. 1.? Abilify IM 300mg as single agent appears to be less than optimal. Continue Caplyta 42mg daily, will add depakote 250mg bid with increase planned up to 500mg bid. 2.? Continue every 15 minute checks for safety. 3.? Encourage individual, group and milieu therapies. 4.? Seeking guardianship. 5. Patient placed on a 21 day hold secondary to significant fear of her inability to care for herself against the backdrop of her functional inability demonstrated by the [facility] report as well as combination of that with addiction. 6. Encourage sobriety at the highest level of care available. Begin level 2 for process of guardianship. Involuntary Hold Information 2 96 Hour Hold: 96 Hour Involuntary Admission: Yes 96 Hour Hold Ending Date: 12/15/23 96 Hour Hold Ending Time: 01:42 Attestations NPU 2 Medical Necessity Statement*: Inpatient hospitalization is medically necessary and the clinically appropriate intervention at this time. We will monitor medication to make changes as indicated. The patient's likely length of stay 10-14 days. Patient is candidate for guardianship and placement. Coding Level of Care Code Acute Code for [facility] Fwd Diagnoses Schizophrenia, paranoid F20.0 Alcohol dependence, 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
[2023-12-29 14:00] VITALS: BP 110/77; PULSE 112; RESP 18; TEMP 36.6; O2SAT 97
[2023-12-29] MEDS: divalproex DR 250 mg Tablet PO (17:00)
[2023-12-29] MEDS: CAPLYTA 42 MG 1 EACH PO (17:02)
[2023-12-29 20:07] VITALS: BP 108/79; PULSE 96; RESP 18; TEMP 36.5; O2SAT 97
[2023-12-29] MEDS: trazodone 100 mg Tablet 150 MG PO (21:35)
[2023-12-30 04:31] VITALS: BP 88/54; PULSE 86; RESP 16; TEMP 36.6; O2SAT 94
[2023-12-30] MEDS: nicotine 4 mg lozenge MUCOUS MEM ×3 (08:33→18:33)
[2023-12-30] MEDS: divalproex DR 250 mg Tablet PO ×2 (09:14→18:00)
[2023-12-30 14:00] VITALS: BP 107/74; PULSE 81; RESP 16; TEMP 36.6; O2SAT 96
--- NOTE | 2023-12-30 16:07 | P.NPUPN_ITS ---
Subjective NPU 2 Subjective: Patient presented today reporting that she is doing okay. 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 We discussed sitting down on Tuesday with the treatment team and having a clear discussion about what is happening in the timeframe that could be expected for different parts of the process. She identified that she was doing fine with the medication and denied any side effects to it. I did remind her about the plan for guardianship and placement. Mental Status Exam 2 MSE Comments: This is an obese white female with hospital scrubs on with limited grooming and eye contact.? No abnormal movements except for mild psychomotor retardation.? She was cooperative with exam in mild distress.? Speech was more productive in rate and volume and childlike. Mood described as okay Her affect was odd. Thought process was linear but derailed later. Thought content: Patient denied suicidal or homicidal ideation, There was some ideas of reference and odd beliefs There was evidence of paranoia. ? 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 Attention and concentration were limited and memory appeared mostly reliable, but none were formally tested.? She is alert and oriented x person and place.? Insight and judgment limited, Impulse control is limited versus impaired.? Intellectual ability is impaired. Vitals/I&O/Wt Last Vital Signs Temp 97.9 F 12/30/23 14:00 Pulse 81 12/30/23 14:00 Resp 16 12/30/23 14:00 BP 107/74 12/30/23 14:00 Pulse Ox 96 12/30/23 14:00 O2 Del Method Room Air 12/30/23 14:00 Data NPU 12/09/23 02:00 12/09/23 02:00 A&P Assessment and plan (1) Schizophrenia, paranoid: (2) Alcohol dependence, in remission: (3) Nicotine dependence, cigarettes, uncomplicated: (4) Mild intellectual disabilities: (5) Other stimulant dependence, in remission: (6) Lack of access to transportation: (7) Impulse control disorder, unspecified: Plan This is a 42-year-old white female with a long history of schizophrenia and 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 She presents somewhat endorsing that she has done a little better after being here and the safety of the unit overnight. 1.? Abilify IM 300mg as single agent appears to be less than optimal. Continue Caplyta 42mg daily, will add depakote 250mg bid with increase planned up to 500mg bid. 2.? Continue every 15 minute checks for safety. 3.? Encourage individual, group and milieu therapies. 4.? Seeking guardianship. 5. Patient placed on a 21 day hold secondary to significant fear of her inability to care for herself against the backdrop of her functional inability demonstrated by the [facility] report as well as combination of that with addiction. 6. Encourage sobriety at the highest level of care available. Begin level 2 for process of guardianship. Involuntary Hold Information 2 96 Hour Hold: 96 Hour Involuntary Admission: Yes 96 Hour Hold Ending Date: 12/15/23 96 Hour Hold Ending Time: 01:42 Attestations NPU 2 Medical Necessity Statement*: Inpatient hospitalization is medically necessary and the clinically appropriate intervention at this time. We will monitor medication to make changes as indicated. The patient's likely length of stay 10-14 days. Patient is candidate for guardianship and placement. Coding Level of Care Code Acute Code for [facility] Fwd Diagnoses Schizophrenia, paranoid F20.0 Alcohol dependence, 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
[2023-12-30] MEDS: CAPLYTA 42 MG 1 EACH PO (18:02)
[2023-12-30 20:30] VITALS: BP 101/74; PULSE 88; RESP 16; TEMP 36.3; O2SAT 99
[2023-12-31 06:00] VITALS: BP 104/75; PULSE 74; RESP 16; TEMP 36.7; O2SAT 97
--- NOTE | 2023-12-31 07:12 | W.PM.NPUPNS ---
Subjective NPU Subjective: Patient presented today reporting that she is not doing well. She was speaking strangely about needing to work on her homework and do some forestry class. She reports a plan to stay here at [facility] for maybe a year to take care of those classes. She cannot give clarity on what that meant. And we discussed the need for likely reintroduction of her Abilify maintainer injection. She denied any side effects of the medication. Mental Status Exam MSE Comments: This is an obese white female with hospital scrubs on with limited grooming and eye contact.? No abnormal movements except for mild psychomotor retardation.? She was cooperative with exam in mild distress.? Speech was more productive in rate and volume and childlike. Mood described as okay Her affect was odd. Thought process was linear but derailed later. Thought content: Patient denied suicidal or homicidal ideation, There was some ideas of reference and odd beliefs There was evidence of paranoia. ? 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 Attention and concentration were limited and memory appeared mostly reliable, but none were formally tested.? She is alert and oriented x person and place.? Insight and judgment limited, Impulse control is limited versus impaired.? Intellectual ability is impaired. Vitals/I&O/Wt Last Vital Signs Temp 98.0 F 12/31/23 06:00 Pulse 74 12/31/23 06:00 Resp 16 12/31/23 06:00 BP 104/75 12/31/23 06:00 Pulse Ox 97 12/31/23 06:00 O2 Del Method Room Air 12/30/23 14:00 Data NPU 12/09/23 02:00 12/09/23 02:00 A&P Assessment and plan (1) Schizophrenia, paranoid: (2) Alcohol dependence, in remission: (3) Nicotine dependence, cigarettes, uncomplicated: (4) Mild intellectual disabilities: (5) Other stimulant dependence, in remission: (6) Lack of access to transportation: (7) Impulse control disorder, unspecified: Plan This is a 42-year-old white female with a long history of schizophrenia and 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 She presents somewhat endorsing that she has done a little better after being here and the safety of the unit overnight. 1.? Abilify IM 300mg as single agent appears to be less than optimal. Continue Caplyta 42mg daily, will add depakote 250mg bid with increase planned up to 500mg bid. 2.? Continue every 15 minute checks for safety. 3.? Encourage individual, group and milieu therapies. 4.? Seeking guardianship. 5. Patient placed on a 21 day hold secondary to significant fear of her inability to care for herself against the backdrop of her functional inability demonstrated by the [facility] report as well as combination of that with addiction. 6. Encourage sobriety at the highest level of care available. Begin level 2 for process of guardianship. Involuntary Hold Information 96 Hour Hold: 96 Hour Involuntary Admission: Yes 96 Hour Hold Ending Date: 12/15/23 96 Hour Hold Ending Time: 01:42 Attestations NPU Medical Necessity Statement*: Inpatient hospitalization is medically necessary and the clinically appropriate intervention at this time. We will monitor medication to make changes as indicated. The patient's likely length of stay 10-14 days. Patient is candidate for guardianship and placement. Coding Level of Care Code Acute Code for [facility] Fwd Diagnoses Schizophrenia, paranoid F20.0 Alcohol dependence, 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
[2023-12-31] MEDS: nicotine 4 mg lozenge MUCOUS MEM ×4 (08:05→20:29)
[2023-12-31] MEDS: divalproex DR 250 mg Tablet PO ×2 (08:05→17:46)
[2023-12-31 14:00] VITALS: BP 122/83; PULSE 86; RESP 16; TEMP 36.4; O2SAT 98
[2023-12-31] MEDS: CAPLYTA 42 MG 1 EACH PO (16:39)
--- NOTE | 2023-12-31 17:42 | PC.NURSE ---
SPOKE WITH THE PHYSICIAN ABOUT PT ABILIFY INJECTION. PHYSICIAN ASKED THAT THIS NURSE VERIFY THAT PT HAD NOT RECEIVED THIS INJECTION DURING STAY IN THE HOSPITAL. THIS NURSE CONTACTED IN PATIENT PHARMACY WHO WAS ABLE TO CONFIRM THAT MEDICATION WAS NOT GIVEN DURING PT STAY. PT PREVIOUSLY STATED THAT SHE DID NOT RECEIVE DOSE THAT IS RECORDED ON 12/02/23. PHYSICIAN WANTS TO CONTACT PT PRIMARY PROVIDER TUESDAY TO VERIFY INJECTION.
[2023-12-31] MEDS: trazodone 100 mg Tablet 150 MG PO (20:08)
[2023-12-31 20:40] VITALS: BP 132/87; PULSE 103; RESP 16; TEMP 36.5; O2SAT 96
[2024-01-01 06:00] VITALS: BP 99/68; PULSE 91; RESP 16; TEMP 36.4; O2SAT 94
[2024-01-01] MEDS: nicotine 4 mg lozenge MUCOUS MEM ×4 (06:05→17:52)
[2024-01-01] MEDS: divalproex DR 250 mg Tablet PO ×2 (08:45→17:35)
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
--- NOTE | 2024-01-01 12:17 | PC.NURSE ---
Patient delusional at this time. Ran up to the nurses' station from the dayroom and angrily stated, Shari Prater is gonna make me mess up! This RN told her that Shari Prater was not here so she didn't need to worry about that. She then began talking about how a man makes moonshine and she drank 2 bottles with 30 beers and that it helped her clean her house. She also said she did not want staff to call her vodka and that she wanted to be called Tejal . Staff told her we always referred to her by Tejal and did not call her vodka. Patient appeared confused, looked at one of the CNAs and said her son should go to school and that should help him live.
[2024-01-01] MEDS: OLANZapine 5 mg ODT PO (12:20)
[2024-01-01] MEDS: haloperidol 5 mg Tablet PO (13:39)
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
[2024-01-01 14:00] VITALS: BP 124/85; PULSE 98; RESP 16; TEMP 36.7; O2SAT 97
--- NOTE | 2024-01-01 17:05 | P.NPUPN_ITS ---
Subjective NPU 2 Subjective: Patient presented today reporting that she is about to freak out. She reports that she does not know how long she is going to have to be here. We discussed as we had discussed yesterday the social work team returning tomorrow and being able to sit down and make sure she had clarity about the process of guardianship and placement. She continued to report that her medications have been fine but she reports not wanting to stay. Mental Status Exam 2 MSE Comments: This is an obese white female with hospital scrubs on with limited grooming and eye contact.? No abnormal movements except for mild psychomotor retardation.? She was cooperative with exam in mild distress.? Speech was more productive in rate and volume and childlike. Mood described as okay Her affect was odd. Thought process was linear but derailed later. Thought content: Patient denied suicidal or homicidal ideation, There was some ideas of reference and odd beliefs There was evidence of paranoia. ? 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 Attention and concentration were limited and memory appeared mostly reliable, but none were formally tested.? She is alert and oriented x person and place.? Insight and judgment limited, Impulse control is limited versus impaired.? Intellectual ability is impaired. Vitals/I&O/Wt Last Vital Signs Temp 98.2 F 01/01/24 19:53 Pulse 95 01/01/24 19:53 Resp 17 01/01/24 19:53 BP 106/75 01/01/24 19:53 Pulse Ox 95 01/01/24 19:53 O2 Del Method Room Air 01/01/24 14:00 Weight last 48 hrs Weight 100.062 kg Data NPU 12/09/23 02:00 12/09/23 02:00 A&P Assessment and plan (1) Schizophrenia, paranoid: (2) Alcohol dependence, in remission: (3) Nicotine dependence, cigarettes, uncomplicated: (4) Mild intellectual disabilities: (5) Other stimulant dependence, in remission: (6) Lack of access to transportation: (7) Impulse control disorder, unspecified: Plan This is a 42-year-old white female with a long history of schizophrenia and 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 She presents somewhat endorsing that she has done a little better after being here and the safety of the unit overnight. 1.? Abilify IM 300mg as single agent appears to be less than optimal. Continue Caplyta 42mg daily, will add depakote 250mg bid with increase planned up to 500mg bid. 2.? Continue every 15 minute checks for safety. 3.? Encourage individual, group and milieu therapies. 4.? Seeking guardianship. 5. Patient placed on a 21 day hold secondary to significant fear of her inability to care for herself against the backdrop of her functional inability demonstrated by the [facility] report as well as combination of that with addiction. 6. Encourage sobriety at the highest level of care available. Begin level 2 for process of guardianship. Involuntary Hold Information 2 96 Hour Hold: 96 Hour Involuntary Admission: Yes 96 Hour Hold Ending Date: 12/15/23 96 Hour Hold Ending Time: 01:42 Attestations NPU 2 Medical Necessity Statement*: Inpatient hospitalization is medically necessary and the clinically appropriate intervention at this time. We will monitor medication to make changes as indicated. The patient's likely length of stay 10-14 days. Patient is candidate for guardianship and placement. Coding Level of Care Code Acute Code for [facility] Fwd Diagnoses Schizophrenia, paranoid F20.0 Alcohol dependence, 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
[2024-01-01] MEDS: CAPLYTA 42 MG 1 EACH PO (17:35)
[2024-01-01 19:53] VITALS: BP 106/75; PULSE 95; RESP 17; TEMP 36.8; O2SAT 95
[2024-01-01] MEDS: trazodone 100 mg Tablet 150 MG PO (21:18)
[2024-01-02 06:00] VITALS: BP 105/72; PULSE 80; RESP 16; TEMP 36.5; O2SAT 94
[2024-01-02] MEDS: divalproex DR 250 mg Tablet PO ×2 (08:32→17:31)
[2024-01-02] MEDS: nicotine 21 mg Patch 1 PATCH TRANSDERMA (08:33)
[2024-01-02 14:00] VITALS: BP 109/76; PULSE 76; RESP 17; TEMP 36.5; O2SAT 99
[2024-01-02] MEDS: ARIPiprazole Maintena 400 MG IM (15:14)
[2024-01-02] MEDS: CAPLYTA 42 MG 1 EACH PO (17:30)
--- NOTE | 2024-01-02 18:40 | P.NPUPN_ITS ---
Subjective NPU 2 Subjective: Patient presented today reporting that she is doing okay. She seemed to have some confusion about the level 2 interview and what it represented. She identified a need for having some sense of the time frame that she is going to be here and struggling with the fact that we identified unknowns of her outside of the control of the treatment team. She denied any side effects to medication and we discussed the plan for her getting the Abilify Maintena 400 mg IM injection consistent with her previously getting the 300 mg dose ultimately 1 month ago. Mental Status Exam 2 MSE Comments: This is an obese white female with hospital scrubs on with limited grooming and eye contact.? No abnormal movements except for mild psychomotor retardation.? She was cooperative with exam in mild distress.? Speech was more productive in rate and volume and childlike. Mood described as fine but wondering about the level 2 interview and its purpose, her affect was odd and slightly subdued. Thought process was linear but derailed later. Thought content: Patient denied suicidal or homicidal ideation, There was some ideas of reference and odd beliefs There was evidence of paranoia. ? She continued to voice frustration about being here. Attention and concentration were limited and memory appeared mostly reliable, but none were formally tested.? She is alert and oriented x person and place.? Insight and judgment limited, Impulse control is limited versus impaired.? Intellectual ability is impaired. Vitals/I&O/Wt Last Vital Signs Temp 97.7 F 01/02/24 14:00 Pulse 76 01/02/24 14:00 Resp 17 01/02/24 14:00 BP 109/76 01/02/24 14:00 Pulse Ox 99 01/02/24 14:00 O2 Del Method Room Air 01/01/24 14:00 Weight last 48 hrs Weight 100.062 kg Data NPU 12/09/23 02:00 12/09/23 02:00 A&P Assessment and plan (1) Schizophrenia, paranoid: (2) Alcohol dependence, in remission: (3) Nicotine dependence, cigarettes, uncomplicated: (4) Mild intellectual disabilities: (5) Other stimulant dependence, in remission: (6) Lack of access to transportation: (7) Impulse control disorder, unspecified: Plan This is a 42-year-old white female with a long history of schizophrenia and 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 She presents somewhat endorsing that she has done a little better after being here and the safety of the unit overnight. 1.? Abilify IM 300mg as single agent appears to be less than optimal. Will work on administering Abilify Maintena 400 mg instead. Continue Caplyta 42mg daily, will add depakote 250mg bid with increase planned up to 500mg bid. 2.? Continue every 15 minute checks for safety. 3.? Encourage individual, group and milieu therapies. 4.? Seeking guardianship. 5. Patient placed on a 21 day hold secondary to significant fear of her inability to care for herself against the backdrop of her functional inability demonstrated by the [facility] report as well as combination of that with addiction. 6. Encourage sobriety at the highest level of care available. Begin level 2 for process of guardianship. Patient has level 2 interview tomorrow Involuntary Hold Information 2 96 Hour Hold: 96 Hour Involuntary Admission: Yes 96 Hour Hold Ending Date: 12/15/23 96 Hour Hold Ending Time: 01:42 Attestations NPU 2 Medical Necessity Statement*: Inpatient hospitalization is medically necessary and the clinically appropriate intervention at this time. We will monitor medication to make changes as indicated. The patient's likely length of stay 10-14 days. Patient is candidate for guardianship and placement. Coding Level of Care Code Acute Code for [facility] Fwd Diagnoses Schizophrenia, paranoid F20.0 Alcohol dependence, 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
[2024-01-02 19:33] VITALS: BP 98/69; PULSE 97; RESP 18; TEMP 36.7; O2SAT 96
[2024-01-02] MEDS: trazodone 100 mg Tablet 150 MG PO (19:49)
[2024-01-03 06:00] VITALS: BP 92/69; PULSE 107; RESP 16; TEMP 36.3; O2SAT 98
[2024-01-03] MEDS: divalproex DR 250 mg Tablet PO ×2 (08:30→17:44)
[2024-01-03] MEDS: nicotine 21 mg Patch 1 PATCH TRANSDERMA (09:34)
--- NOTE | 2024-01-03 12:33 | PC.NURSE ---
pt removed nicotine patch
[2024-01-03 14:00] VITALS: BP 104/74; PULSE 94; RESP 16; TEMP 36.4; O2SAT 99
--- NOTE | 2024-01-03 15:37 | W.PM.NPUPNS ---
Subjective NPU Subjective: Patient presented today reporting that she is doing okay. She had her level 2 interview this morning and she did not do that well per staff reports. She continues to be fairly unaware of her circumstance and continues to demonstrate significant cognitive limitations per staff reports and direct observations many times she would speak fairly aimlessly about topics that did not seem to have much connection. She denied any side effects to the medication. Mental Status Exam MSE Comments: This is an obese white female with hospital scrubs on with limited grooming and eye contact.? No abnormal movements except for mild psychomotor retardation.? She was cooperative with exam in mild distress.? Speech was more productive in rate and volume and childlike. Mood described as fine but wondering about the level 2 interview and its purpose, her affect was odd and slightly subdued. Thought process was linear but derailed later. Thought content: Patient denied suicidal or homicidal ideation, There was some ideas of reference and odd beliefs There was evidence of paranoia. ? She continued to voice frustration about being here. Attention and concentration were limited and memory appeared mostly reliable, but none were formally tested.? She is alert and oriented x person and place.? Insight and judgment limited, Impulse control is limited versus impaired.? Intellectual ability is impaired. Vitals/I&O/Wt Last Vital Signs Temp 97.6 F 01/03/24 14:00 Pulse 94 01/03/24 14:00 Resp 16 01/03/24 14:00 BP 104/74 01/03/24 14:00 Pulse Ox 99 01/03/24 14:00 O2 Del Method Room Air 01/03/24 14:00 Data NPU 12/09/23 02:00 12/09/23 02:00 A&P Assessment and plan (1) Schizophrenia, paranoid: (2) Alcohol dependence, in remission: (3) Nicotine dependence, cigarettes, uncomplicated: (4) Mild intellectual disabilities: (5) Other stimulant dependence, in remission: (6) Lack of access to transportation: (7) Impulse control disorder, unspecified: Plan This is a 42-year-old white female with a long history of schizophrenia and 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 She presents somewhat endorsing that she has done a little better after being here and the safety of the unit overnight. 1.? Abilify IM 300mg as single agent appears to be less than optimal. Will work on administering Abilify Maintena 400 mg instead. Continue Caplyta 42mg daily, will add depakote 250mg bid with increase planned up to 500mg bid. 2.? Continue every 15 minute checks for safety. 3.? Encourage individual, group and milieu therapies. 4.? Seeking guardianship. 5. Patient placed on a 21 day hold secondary to significant fear of her inability to care for herself against the backdrop of her functional inability demonstrated by the [facility] report as well as combination of that with addiction. 6. Encourage sobriety at the highest level of care available. Begin level 2 for process of guardianship. Patient had level 2 interview today which was a challenge for her. Involuntary Hold Information 96 Hour Hold: 96 Hour Involuntary Admission: Yes 96 Hour Hold Ending Date: 12/15/23 96 Hour Hold Ending Time: 01:42 Attestations NPU Medical Necessity Statement*: Inpatient hospitalization is medically necessary and the clinically appropriate intervention at this time. We will monitor medication to make changes as indicated. The patient's likely length of stay 10-14 days. Patient is candidate for guardianship and placement. Coding Level of Care Code Acute Code for [facility] Fwd Diagnoses Schizophrenia, paranoid F20.0 Alcohol dependence, 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
[2024-01-03] MEDS: nicotine 4 mg lozenge MUCOUS MEM ×2 (15:46→18:34)
[2024-01-03] MEDS: CAPLYTA 42 MG 1 EACH PO (17:28)
[2024-01-03 19:20] VITALS: BP 135/94; PULSE 107; RESP 16; TEMP 36.3; O2SAT 100
[2024-01-03] MEDS: trazodone 100 mg Tablet 150 MG PO (20:21)
[2024-01-04 06:00] VITALS: BP 89/64; PULSE 94; RESP 16; TEMP 36.3; O2SAT 96
[2024-01-04] MEDS: nicotine 4 mg lozenge MUCOUS MEM (09:15)
[2024-01-04] MEDS: divalproex DR 250 mg Tablet PO ×2 (09:15→17:43)
[2024-01-04 14:00] VITALS: BP 110/78; PULSE 76; RESP 16; TEMP 36.6; O2SAT 98
--- NOTE | 2024-01-04 16:02 | P.NPUPN_ITS ---
Subjective NPU 2 Subjective: Patient presented today reporting that she is doing okay. She continued to have nonsensical talk or at least purposeless conversation per staff reports and direct observation. She denied any specific issues and endorsed being okay with the plan to go to a facility. We discussed the fact that there has been a facility identified the might take her which she liked the idea of possibly getting out of here sooner rather than later. We continue to discuss the process that we will have to take place before she leaves. She denied any side effects to the medication. Mental Status Exam 2 MSE Comments: This is an obese white female with hospital scrubs on with limited grooming and eye contact.? No abnormal movements except for mild psychomotor retardation.? She was cooperative with exam in mild distress.? Speech was more productive in rate and volume and childlike. Mood described as fine but wondering about the level 2 interview and its purpose, her affect was odd and slightly subdued. Thought process was linear but derailed later. Thought content: Patient denied suicidal or homicidal ideation, There was some ideas of reference and odd beliefs There was evidence of paranoia. ? She continued to voice frustration about being here. Attention and concentration were limited and memory appeared mostly reliable, but none were formally tested.? She is alert and oriented x person and place.? Insight and judgment limited, Impulse control is limited versus impaired.? Intellectual ability is impaired. Vitals/I&O/Wt Last Vital Signs Temp 98 F 01/04/24 14:00 Pulse 76 01/04/24 14:00 Resp 16 01/04/24 14:00 BP 110/78 01/04/24 14:00 Pulse Ox 98 01/04/24 14:00 O2 Del Method Room Air 01/04/24 14:00 Data NPU 12/09/23 02:00 12/09/23 02:00 A&P Assessment and plan (1) Schizophrenia, paranoid: (2) Alcohol dependence, in remission: (3) Nicotine dependence, cigarettes, uncomplicated: (4) Mild intellectual disabilities: (5) Other stimulant dependence, in remission: (6) Lack of access to transportation: (7) Impulse control disorder, unspecified: Plan This is a 42-year-old white female with a long history of schizophrenia and 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 She presents somewhat endorsing that she has done a little better after being here and the safety of the unit overnight. 1.? Abilify IM 300mg as single agent appears to be less than optimal. Will work on administering Abilify Maintena 400 mg instead. Given Abilify Maintena 400 mg IM 01/02/2024. Discontinue oral Abilify after 10 doses. Continue Caplyta 42mg daily, will add depakote 250mg bid with increase planned up to 500mg bid. 2.? Continue every 15 minute checks for safety. 3.? Encourage individual, group and milieu therapies. 4.? Seeking guardianship. 5. Patient placed on a 21 day hold secondary to significant fear of her inability to care for herself against the backdrop of her functional inability demonstrated by the [facility] report as well as combination of that with addiction. 6. Encourage sobriety at the highest level of care available. Begin level 2 for process of guardianship. Patient had level 2 interview today which was a challenge for her. Involuntary Hold Information 2 96 Hour Hold: 96 Hour Involuntary Admission: Yes 96 Hour Hold Ending Date: 12/15/23 96 Hour Hold Ending Time: 01:42 Attestations NPU 2 Medical Necessity Statement*: Inpatient hospitalization is medically necessary and the clinically appropriate intervention at this time. We will monitor medication to make changes as indicated. The patient's likely length of stay 10-14 days. Patient is candidate for guardianship and placement. Coding Level of Care Code Acute Code for [facility]w Diagnoses Schizophrenia, paranoid F20.0 Alcohol dependence, 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
[2024-01-04] MEDS: CAPLYTA 42 MG 1 EACH PO (17:43)
[2024-01-04 19:41] VITALS: BP 95/58; PULSE 86; RESP 18; TEMP 36.4; O2SAT 97
[2024-01-05 06:00] VITALS: BP 107/71; PULSE 88; RESP 16; TEMP 36.4; O2SAT 98
[2024-01-05] MEDS: nicotine 4 mg lozenge MUCOUS MEM ×2 (06:55→09:01)
[2024-01-05] MEDS: divalproex DR 250 mg Tablet PO ×2 (08:58→18:04)
[2024-01-05] MEDS: ARIPiprazole 10 mg Tablet PO (09:01)
[2024-01-05 14:00] VITALS: BP 129/84; PULSE 90; RESP 17; TEMP 36.9; O2SAT 97
--- NOTE | 2024-01-05 15:01 | P.NPUPN_ITS ---
Subjective NPU 2 Subjective: Patient presented today continuing to seem somewhat confused as to how things are proceeding. She continues to make odd statements that do not seem to pertain to what is actually being discussed. She talked randomly about cigarettes and something about being possessed and none of them seem to be connected. We continue to discuss the plan and the process as to how she will move from here to another facility. She continues to be interested in the timeline but does not seem to really follow. She denied any side effects to the medication. Mental Status Exam 2 MSE Comments: This is an obese white female with hospital scrubs on with limited grooming and eye contact.? No abnormal movements except for mild psychomotor retardation.? She was cooperative with exam in mild distress.? Speech was more productive in rate and volume and childlike. Mood described as fine but wondering about the level 2 interview and its purpose, her affect was odd and slightly subdued. Thought process was linear but derailed later. Thought content: Patient denied suicidal or homicidal ideation, There was some ideas of reference and odd beliefs There was evidence of paranoia. ? She continued to voice frustration about being here. Attention and concentration were limited and memory appeared mostly reliable, but none were formally tested.? She is alert and oriented x person and place.? Insight and judgment limited, Impulse control is limited versus impaired.? Intellectual ability is impaired. Vitals/I&O/Wt Last Vital Signs Temp 97.6 F 01/05/24 06:00 Pulse 88 01/05/24 06:00 Resp 16 01/05/24 06:00 BP 107/71 01/05/24 06:00 Pulse Ox 98 01/05/24 06:00 O2 Del Method Room Air 01/05/24 06:00 01/05/24 01/05/24 01/05/24 06:59 14:59 22:59 Intake Total 480 / 480 Balance 480 / 480 Data NPU 12/09/23 02:00 12/09/23 02:00 A&P Assessment and plan (1) Schizophrenia, paranoid: (2) Alcohol dependence, in remission: (3) Nicotine dependence, cigarettes, uncomplicated: (4) Mild intellectual disabilities: (5) Other stimulant dependence, in remission: (6) Lack of access to transportation: (7) Impulse control disorder, unspecified: Plan This is a 42-year-old white female with a long history of schizophrenia and 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 She presents somewhat endorsing that she has done a little better after being here and the safety of the unit overnight. 1.? Abilify IM 300mg as single agent appears to be less than optimal. Will work on administering Abilify Maintena 400 mg instead. Given Abilify Maintena 400 mg IM 01/02/2024. Discontinue oral Abilify after 10 doses. Continue Caplyta 42mg daily, will add depakote 250mg bid with increase planned up to 500mg bid. 2.? Continue every 15 minute checks for safety. 3.? Encourage individual, group and milieu therapies. 4.? Seeking guardianship. 5. Patient placed on a 21 day hold secondary to significant fear of her inability to care for herself against the backdrop of her functional inability demonstrated by the [facility] report as well as combination of that with addiction. 6. Encourage sobriety at the highest level of care available. Begin level 2 for process of guardianship. Patient had level 2 interview today which was a challenge for her. Involuntary Hold Information 2 96 Hour Hold: 96 Hour Involuntary Admission: Yes 96 Hour Hold Ending Date: 12/15/23 96 Hour Hold Ending Time: 01:42 Attestations NPU 2 Medical Necessity Statement*: Inpatient hospitalization is medically necessary and the clinically appropriate intervention at this time. We will monitor medication to make changes as indicated. The patient's likely length of stay 10-14 days. Patient is candidate for guardianship and placement. Coding Level of Care Code Acute Code for [facility] Fwd Diagnoses Schizophrenia, paranoid F20.0 Alcohol dependence, 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
[2024-01-05] MEDS: CAPLYTA 42 MG 1 EACH PO (18:04)
[2024-01-05 20:14] VITALS: BP 131/80; PULSE 87; RESP 18; TEMP 36.7; O2SAT 98
[2024-01-05] MEDS: trazodone 100 mg Tablet 150 MG PO (21:10)
[2024-01-06 06:00] VITALS: BP 104/69; PULSE 100; RESP 18; TEMP 36.9; O2SAT 98
[2024-01-06] MEDS: divalproex DR 250 mg Tablet PO ×2 (08:22→17:51)
[2024-01-06] MEDS: ARIPiprazole 10 mg Tablet PO (08:22)
[2024-01-06] MEDS: nicotine 4 mg lozenge MUCOUS MEM ×2 (08:25→10:40)
[2024-01-06 14:00] VITALS: BP 109/75; PULSE 85; RESP 16; TEMP 36.6; O2SAT 98
[2024-01-06] MEDS: CAPLYTA 42 MG 1 EACH PO (17:51)
--- NOTE | 2024-01-06 18:43 | P.NPUPN_ITS ---
Subjective NPU 2 Subjective: Patient presented today reporting that she is doing fine. She has no clear plan or concern for things moving forward. She continues to be fairly aimless but seems to identify at least that the plan is for her to go to some structured program. She denied any side effects of the medication. Mental Status Exam 2 MSE Comments: This is an obese white female with hospital scrubs on with limited grooming and eye contact.? No abnormal movements except for mild psychomotor retardation.? She was cooperative with exam in mild distress.? Speech was more productive in rate and volume and childlike. Mood described as fine but wondering about the level 2 interview and its purpose, her affect was odd and slightly subdued. Thought process was linear but derailed later. Thought content: Patient denied suicidal or homicidal ideation, There was some ideas of reference and odd beliefs There was evidence of paranoia. ? She continued to voice frustration about being here. Attention and concentration were limited and memory appeared mostly reliable, but none were formally tested.? She is alert and oriented x person and place.? Insight and judgment limited, Impulse control is limited versus impaired.? Intellectual ability is impaired. Vitals/I&O/Wt Last Vital Signs Temp 98 F 01/06/24 14:00 Pulse 85 01/06/24 14:00 Resp 16 01/06/24 14:00 BP 109/75 01/06/24 14:00 Pulse Ox 98 01/06/24 14:00 O2 Del Method Room Air 01/06/24 14:00 Data NPU 12/09/23 02:00 12/09/23 02:00 A&P Assessment and plan (1) Schizophrenia, paranoid: (2) Alcohol dependence, in remission: (3) Nicotine dependence, cigarettes, uncomplicated: (4) Mild intellectual disabilities: (5) Other stimulant dependence, in remission: (6) Lack of access to transportation: (7) Impulse control disorder, unspecified: Plan This is a 42-year-old white female with a long history of schizophrenia and 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 She presents somewhat endorsing that she has done a little better after being here and the safety of the unit overnight. 1.? Abilify IM 300mg as single agent appears to be less than optimal. Will work on administering Abilify Maintena 400 mg instead. Given Abilify Maintena 400 mg IM 01/02/2024. Discontinue oral Abilify after 8 more doses. Continue Caplyta 42mg daily, will add depakote 250mg bid with increase planned up to 500mg bid. 2.? Continue every 15 minute checks for safety. 3.? Encourage individual, group and milieu therapies. 4.? Seeking guardianship. 5. Patient placed on a 21 day hold secondary to significant fear of her inability to care for herself against the backdrop of her functional inability demonstrated by the [facility] report as well as combination of that with addiction. 6. Encourage sobriety at the highest level of care available. Begin level 2 for process of guardianship. Patient had level 2 interview today which was a challenge for her. Involuntary Hold Information 2 96 Hour Hold: 96 Hour Involuntary Admission: Yes 96 Hour Hold Ending Date: 12/15/23 96 Hour Hold Ending Time: 01:42 Attestations NPU 2 Medical Necessity Statement*: Inpatient hospitalization is medically necessary and the clinically appropriate intervention at this time. We will monitor medication to make changes as indicated. The patient's likely length of stay 10-14 days. Patient is candidate for guardianship and placement. Coding Level of Care Code Acute Code for [facility] Diagnoses Schizophrenia, paranoid F20.0 Alcohol dependence, 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
[2024-01-06] MEDS: trazodone 100 mg Tablet 150 MG PO (20:22)
[2024-01-06 20:44] VITALS: BP 107/71; PULSE 89; RESP 18; TEMP 36.5; O2SAT 95
[2024-01-07 06:00] VITALS: BP 98/60; PULSE 87; RESP 16; TEMP 37; O2SAT 94
--- NOTE | 2024-01-07 08:12 | P.NPUPN_ITS ---
Subjective NPU 2 Subjective: Presented today reporting that she is not having any issues with her medication. She denied any side effects and denied any problems. She continues to be focused on the timeframe she will still be here and is hopeful that this process can be done as quickly as possible. We discussed the fact [place] and so they will be the ones driving the amount of time before hearing. Mental Status Exam 2 MSE Comments: This is an obese white female with hospital scrubs on with limited grooming and eye contact.? No abnormal movements except for mild psychomotor retardation.? She was cooperative with exam in mild distress.? Speech was more productive in rate and volume and childlike. Mood described as fine but wondering about the level 2 interview and its purpose, her affect was odd and slightly subdued. Thought process was linear but derailed later. Thought content: Patient denied suicidal or homicidal ideation, There was some ideas of reference and odd beliefs There was evidence of paranoia. ? She continued to voice frustration about being here. Attention and concentration were limited and memory appeared mostly reliable, but none were formally tested.? She is alert and oriented x person and place.? Insight and judgment limited, Impulse control is limited versus impaired.? Intellectual ability is impaired. Vitals/I&O/Wt Last Vital Signs Temp 98.6 F 01/07/24 06:00 Pulse 87 01/07/24 06:00 Resp 16 01/07/24 06:00 BP 98/60 01/07/24 06:00 Pulse Ox 94 01/07/24 06:00 O2 Del Method Room Air 01/07/24 06:00 Weight last 48 hrs Weight 98.157 kg Data NPU 12/09/23 02:00 12/09/23 02:00 A&P Assessment and plan (1) Schizophrenia, paranoid: (2) Alcohol dependence, in remission: (3) Nicotine dependence, cigarettes, uncomplicated: (4) Mild intellectual disabilities: (5) Other stimulant dependence, in remission: (6) Lack of access to transportation: (7) Impulse control disorder, unspecified: Plan This is a 42-year-old white female with a long history of schizophrenia and 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 She presents somewhat endorsing that she has done a little better after being here and the safety of the unit overnight. 1.? Abilify IM 300mg as single agent appears to be less than optimal. Will work on administering Abilify Maintena 400 mg instead. Given Abilify Maintena 400 mg IM 01/02/2024. Discontinue oral Abilify after 8 more doses. Continue Caplyta 42mg daily, will add depakote 250mg bid with increase planned up to 500mg bid. 2.? Continue every 15 minute checks for safety. 3.? Encourage individual, group and milieu therapies. 4.? Seeking guardianship. 5. Patient placed on a 21 day hold secondary to significant fear of her inability to care for herself against the backdrop of her functional inability demonstrated by the [facility] report as well as combination of that with addiction. 6. Encourage sobriety at the highest level of care available. Begin level 2 for process of guardianship. Patient had level 2 interview today which was a challenge for her. Involuntary Hold Information 2 96 Hour Hold: 96 Hour Involuntary Admission: Yes 96 Hour Hold Ending Date: 12/15/23 96 Hour Hold Ending Time: 01:42 Attestations NPU 2 Medical Necessity Statement*: Inpatient hospitalization is medically necessary and the clinically appropriate intervention at this time. We will monitor medication to make changes as indicated. The patient's likely length of stay 10-14 days. Patient is candidate for guardianship and placement. Coding Level of Care Code Acute Code for [facility]wd Diagnoses Schizophrenia, paranoid F20.0 Alcohol dependence, 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
[2024-01-07] MEDS: divalproex DR 250 mg Tablet PO ×2 (09:04→18:19)
[2024-01-07] MEDS: ARIPiprazole 10 mg Tablet PO (09:05)
[2024-01-07] MEDS: ibuprofen 600 mg Tablet PO (10:29)
[2024-01-07 14:00] VITALS: BP 112/69; PULSE 108; RESP 17; TEMP 36.6; O2SAT 96
[2024-01-07] MEDS: nicotine 4 mg lozenge MUCOUS MEM (15:22)
[2024-01-07] MEDS: CAPLYTA 42 MG 1 EACH PO (18:19)
[2024-01-07 20:05] VITALS: BP 118/81; PULSE 98; RESP 17; TEMP 36.5; O2SAT 96
[2024-01-07] MEDS: trazodone 100 mg Tablet 150 MG PO (20:09)
[2024-01-08 06:00] VITALS: BP 123/90; PULSE 85; RESP 17; TEMP 36.8; O2SAT 98
[2024-01-08] MEDS: nicotine 4 mg lozenge MUCOUS MEM ×2 (08:42→15:37)
[2024-01-08] MEDS: ARIPiprazole 10 mg Tablet PO (08:43)
[2024-01-08] MEDS: divalproex DR 250 mg Tablet PO ×2 (08:43→17:17)
--- NOTE | 2024-01-08 12:15 | P.NPUPN_ITS ---
Subjective NPU 2 Subjective: Patient presented today reporting that she is doing fine. Staff report her being less derailed which was notable on direct observation. She does continue to be focused on the timeline to discharge. She reports excepting the plan as it is and occasionally gets confused reporting that she has her own home so that we could send her there if the other situation did not work out. We discussed us as well as her family believing that this is the best chance for her to have a successful, sober and fruitful existence. She denied any side effects to the medication. Mental Status Exam 2 MSE Comments: This is an obese white female with hospital scrubs on with limited grooming and eye contact.? No abnormal movements except for mild psychomotor retardation.? She was cooperative with exam in mild distress.? Speech was more productive in rate and volume and childlike. Mood described as okay but how long do think I will need to be here before I can go to the new place, her affect was less odd and slightly subdued. Thought process was linear but derailed later. Thought content: Patient denied suicidal or homicidal ideation, There was some ideas of reference and odd beliefs There was evidence of paranoia. ? She continued to voice frustration about being here. Attention and concentration were limited and memory appeared mostly reliable, but none were formally tested.? She is alert and oriented x person and place.? Insight and judgment limited, Impulse control is limited versus impaired.? Intellectual ability is impaired. Vitals/I&O/Wt Last Vital Signs Temp 98.2 F 01/08/24 06:00 Pulse 85 01/08/24 06:00 Resp 17 01/08/24 06:00 BP 123/90 01/08/24 06:00 Pulse Ox 98 01/08/24 06:00 O2 Del Method Room Air 01/07/24 06:00 Weight last 48 hrs Weight 98.157 kg Data NPU 12/09/23 02:00 12/09/23 02:00 A&P Assessment and plan (1) Schizophrenia, paranoid: (2) Alcohol dependence, in remission: (3) Nicotine dependence, cigarettes, uncomplicated: (4) Mild intellectual disabilities: (5) Other stimulant dependence, in remission: (6) Lack of access to transportation: (7) Impulse control disorder, unspecified: Plan This is a 42-year-old white female with a long history of schizophrenia and 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 She presents somewhat endorsing that she has done a little better after being here and the safety of the unit overnight. 1.? Abilify IM 300mg as single agent appears to be less than optimal. Will work on administering Abilify Maintena 400 mg instead. Given Abilify Maintena 400 mg IM 01/02/2024. Discontinue oral Abilify after 8 more doses. Continue Caplyta 42mg daily, will add depakote 250mg bid with increase planned up to 500mg bid. 2.? Continue every 15 minute checks for safety. 3.? Encourage individual, group and milieu therapies. 4.? Seeking guardianship. 5. Patient placed on a 21 day hold secondary to significant fear of her inability to care for herself against the backdrop of her functional inability demonstrated by the [facility] report as well as combination of that with addiction. 6. Encourage sobriety at the highest level of care available. Began level 2 for process of guardianship. Patient had level 2 interview which was a challenge for her. Appears she has an accepting facility once we get guardianship and level 2 completely approved. Involuntary Hold Information 2 96 Hour Hold: 96 Hour Involuntary Admission: Yes 96 Hour Hold Ending Date: 12/15/23 96 Hour Hold Ending Time: 01:42 Attestations NPU 2 Medical Necessity Statement*: Inpatient hospitalization is medically necessary and the clinically appropriate intervention at this time. We will monitor medication to make changes as indicated. The patient's likely length of stay 10-14 days. Patient is candidate for guardianship and placement. Coding Level of Care Code Acute Code for [facility] Fwd Diagnoses Schizophrenia, paranoid F20.0 Alcohol dependence, 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
[2024-01-08 14:00] VITALS: BP 101/78; PULSE 90; RESP 17; O2SAT 99
[2024-01-08] MEDS: CAPLYTA 42 MG 1 EACH PO (17:17)
[2024-01-08] MEDS: acetaminophen 325 mg Tablet 650 MG PO (17:19)
[2024-01-08] MEDS: trazodone 100 mg Tablet 150 MG PO (20:46)
[2024-01-08] MEDS: hyDROXYzine 25 mg Capsule 50 MG PO (20:46)
[2024-01-08 21:08] VITALS: BP 129/85; PULSE 79; RESP 18; TEMP 36.7; O2SAT 97
[2024-01-09 06:00] VITALS: BP 117/82; PULSE 89; RESP 17; TEMP 36.9; O2SAT 97
[2024-01-09] MEDS: ibuprofen 600 mg Tablet PO (06:49)
[2024-01-09] MEDS: nicotine 4 mg lozenge MUCOUS MEM ×3 (09:01→19:57)
[2024-01-09] MEDS: ARIPiprazole 10 mg Tablet PO (09:37)
[2024-01-09] MEDS: divalproex DR 250 mg Tablet PO ×2 (09:37→17:17)
[2024-01-09 14:00] VITALS: BP 119/86; PULSE 86; RESP 16; TEMP 36.6; O2SAT 99
--- NOTE | 2024-01-09 15:07 | P.NPUPN_ITS ---
Subjective NPU 2 Subjective: Patient presented today reporting that she is doing well overall. She continues to identify an openness to the plan to go to placement but often identifies that she has a place to go if that does not work out. We discussed the importance of her getting into some kind of placement so that she is not sitting at home and not functioning. She denied any side effects to the medication. Mental Status Exam 2 MSE Comments: This is an obese white female with hospital scrubs on with limited grooming and eye contact.? No abnormal movements except for mild psychomotor retardation.? She was cooperative with exam in mild distress.? Speech was more productive in rate and volume and childlike. Mood described as okay but how long do think I will need to be here before I can go to the new place, her affect was less odd and slightly subdued. Thought process was linear but derailed later. Thought content: Patient denied suicidal or homicidal ideation, There was some ideas of reference and odd beliefs There was evidence of paranoia. ? She continued to voice frustration about being here. Attention and concentration were limited and memory appeared mostly reliable, but none were formally tested.? She is alert and oriented x person and place.? Insight and judgment limited, Impulse control is limited versus impaired.? Intellectual ability is impaired. Vitals/I&O/Wt Last Vital Signs Temp 98.5 F 01/09/24 06:00 Pulse 89 01/09/24 06:00 Resp 17 01/09/24 06:00 BP 117/82 01/09/24 06:00 Pulse Ox 97 01/09/24 06:00 O2 Del Method Room Air 01/07/24 06:00 Weight last 48 hrs Weight 98.157 kg Data NPU 12/09/23 02:00 12/09/23 02:00 A&P Assessment and plan (1) Schizophrenia, paranoid: (2) Alcohol dependence, in remission: (3) Nicotine dependence, cigarettes, uncomplicated: (4) Mild intellectual disabilities: (5) Other stimulant dependence, in remission: (6) Lack of access to transportation: (7) Impulse control disorder, unspecified: Plan This is a 42-year-old white female with a long history of schizophrenia and 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 She presents somewhat endorsing that she has done a little better after being here and the safety of the unit overnight. 1.? Abilify IM 300mg as single agent appears to be less than optimal. Will work on administering Abilify Maintena 400 mg instead. Given Abilify Maintena 400 mg IM 01/02/2024. Discontinue oral Abilify after 8 more doses. Continue Caplyta 42mg daily, will add depakote 250mg bid with increase planned up to 500mg bid. 2.? Continue every 15 minute checks for safety. 3.? Encourage individual, group and milieu therapies. 4.? Seeking guardianship. 5. Patient placed on a 21 day hold secondary to significant fear of her inability to care for herself against the backdrop of her functional inability demonstrated by the [facility] report as well as combination of that with addiction. 6. Encourage sobriety at the highest level of care available. Began level 2 for process of guardianship. Patient had level 2 interview which was a challenge for her. Appears she has an accepting facility once we get guardianship and level 2 completely approved. Involuntary Hold Information 2 96 Hour Hold: 96 Hour Involuntary Admission: Yes 96 Hour Hold Ending Date: 12/15/23 96 Hour Hold Ending Time: 01:42 Attestations NPU 2 Medical Necessity Statement*: Inpatient hospitalization is medically necessary and the clinically appropriate intervention at this time. We will monitor medication to make changes as indicated. The patient's likely length of stay 10-14 days. Patient is candidate for guardianship and placement. Coding Level of Care Code Acute Code for [facility] Fwd Diagnoses Schizophrenia, paranoid F20.0 Alcohol dependence, 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
[2024-01-09] MEDS: ondansetron 4 MG Tablet PO (17:17)
[2024-01-09] MEDS: CAPLYTA 42 MG 1 EACH PO (17:17)
[2024-01-09] MEDS: hyDROXYzine 25 mg Capsule 50 MG PO (19:48)
[2024-01-09] MEDS: trazodone 100 mg Tablet 150 MG PO (19:48)
[2024-01-09 21:00] VITALS: BP 117/81; PULSE 92; RESP 17; TEMP 36.6; O2SAT 98
[2024-01-10 06:00] VITALS: BP 95/72; PULSE 80; RESP 16; TEMP 36.5; O2SAT 97
[2024-01-10] MEDS: ARIPiprazole 10 mg Tablet PO (08:40)
[2024-01-10] MEDS: divalproex DR 250 mg Tablet PO ×2 (08:40→16:59)
[2024-01-10] MEDS: nicotine 4 mg lozenge MUCOUS MEM ×3 (10:53→19:03)
[2024-01-10 14:00] VITALS: BP 108/74; PULSE 84; RESP 16; TEMP 36.8; O2SAT 97
--- NOTE | 2024-01-10 15:50 | P.NPUPN_ITS ---
Subjective NPU 2 Subjective: Patient presented today continuing to report that she is doing all right. She identified that overall she is doing okay. Staff reports significant decrease in her irritability from admission and she demonstrates this on direct observation as well. She denied any side effects or medications and continues to appear to understand that we are awaiting her county and the home setting a court date. Mental Status Exam 2 MSE Comments: This is an obese white female with hospital scrubs on with limited grooming and eye contact.? No abnormal movements except for mild psychomotor retardation.? She was cooperative with exam in mild distress.? Speech was more productive in rate and volume and childlike. Mood described as okay but how long do think I will need to be here before I can go to the new place, her affect was less odd and slightly subdued. Thought process was linear but derailed later. Thought content: Patient denied suicidal or homicidal ideation, There was some ideas of reference and odd beliefs There was evidence of paranoia. ? She continued to voice frustration about being here. Attention and concentration were limited and memory appeared mostly reliable, but none were formally tested.? She is alert and oriented x person and place.? Insight and judgment limited, Impulse control is limited versus impaired.? Intellectual ability is impaired. Vitals/I&O/Wt Last Vital Signs Temp 98.3 F 01/10/24 14:00 Pulse 84 01/10/24 14:00 Resp 16 01/10/24 14:00 BP 108/74 01/10/24 14:00 Pulse Ox 97 01/10/24 14:00 O2 Del Method Room Air 01/10/24 14:00 Data NPU 12/09/23 02:00 12/09/23 02:00 A&P Assessment and plan (1) Schizophrenia, paranoid: (2) Alcohol dependence, in remission: (3) Nicotine dependence, cigarettes, uncomplicated: (4) Mild intellectual disabilities: (5) Other stimulant dependence, in remission: (6) Lack of access to transportation: (7) Impulse control disorder, unspecified: Plan This is a 42-year-old white female with a long history of schizophrenia and 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 She presents somewhat endorsing that she has done a little better after being here and the safety of the unit overnight. 1.? Abilify IM 300mg as single agent appears to be less than optimal. Will work on administering Abilify Maintena 400 mg instead. Given Abilify Maintena 400 mg IM 01/02/2024. Discontinue oral Abilify after 8 more doses. Continue Caplyta 42mg daily, will add depakote 250mg bid with increase planned up to 500mg bid. 2.? Continue every 15 minute checks for safety. 3.? Encourage individual, group and milieu therapies. 4.? Seeking guardianship. 5. Patient placed on a 21 day hold secondary to significant fear of her inability to care for herself against the backdrop of her functional inability demonstrated by the [facility] report as well as combination of that with addiction. Will need to do a 90-day hold application by tomorrow. 6. Encourage sobriety at the highest level of care available. Began level 2 for process of guardianship. Patient had level 2 interview which was a challenge for her. Appears she has an accepting facility once we get guardianship and level 2 completely approved. Involuntary Hold Information 2 96 Hour Hold: 96 Hour Involuntary Admission: Yes 96 Hour Hold Ending Date: 12/15/23 96 Hour Hold Ending Time: 01:42 Attestations NPU 2 Medical Necessity Statement*: Inpatient hospitalization is medically necessary and the clinically appropriate intervention at this time. We will monitor medication to make changes as indicated. The patient's likely length of stay 10-14 days. Patient is candidate for guardianship and placement. Coding Level of Care Code Acute Code for [facility] Diagnoses Schizophrenia, paranoid F20.0 Alcohol dependence, 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
[2024-01-10] MEDS: CAPLYTA 42 MG 1 EACH PO (16:59)
[2024-01-10] MEDS: trazodone 100 mg Tablet 150 MG PO (19:03)
[2024-01-10] MEDS: hyDROXYzine 25 mg Capsule 50 MG PO (19:03)
[2024-01-10 19:27] VITALS: BP 132/85; PULSE 107; RESP 16; TEMP 36.7; O2SAT 95
[2024-01-11 06:00] VITALS: BP 93/68; PULSE 94; RESP 18; TEMP 37; O2SAT 98
--- NOTE | 2024-01-11 07:22 | P.NPUPN_ITS ---
Subjective NPU 2 Subjective: Patient presented today reporting that things are going okay. She endorses having a fairly good day and staff concurs that she has been continually more stable and less irritable overall. This is also observed on direct observation. She continues to be calm and is focused on getting out as soon as possible but without any major complaints. She denied any side effects to the medications. Mental Status Exam 2 MSE Comments: This is an obese white female with hospital scrubs on with limited grooming and eye contact.? No abnormal movements except for mild psychomotor retardation.? She was cooperative with exam in mild distress.? Speech was more productive in rate and volume and childlike. Mood described as okay but how long do think I will need to be here before I can go to the new place, her affect was less odd and slightly subdued. Thought process was linear but derailed later. Thought content: Patient denied suicidal or homicidal ideation, There was some ideas of reference and odd beliefs There was evidence of paranoia. ? She continued to voice frustration about being here. Attention and concentration were limited and memory appeared mostly reliable, but none were formally tested.? She is alert and oriented x person and place.? Insight and judgment limited, Impulse control is limited versus impaired.? Intellectual ability is impaired. Vitals/I&O/Wt Last Vital Signs Temp 98.6 F 01/11/24 06:00 Pulse 94 01/11/24 06:00 Resp 18 01/11/24 06:00 BP 93/68 01/11/24 06:00 Pulse Ox 98 01/11/24 06:00 O2 Del Method Room Air 01/11/24 06:00 Data NPU 12/09/23 02:00 12/09/23 02:00 A&P Assessment and plan (1) Schizophrenia, paranoid: (2) Alcohol dependence, in remission: (3) Nicotine dependence, cigarettes, uncomplicated: (4) Mild intellectual disabilities: (5) Other stimulant dependence, in remission: (6) Lack of access to transportation: (7) Impulse control disorder, unspecified: Plan This is a 42-year-old white female with a long history of schizophrenia and 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 She presents somewhat endorsing that she has done a little better after being here and the safety of the unit overnight. 1.? Abilify IM 300mg as single agent appears to be less than optimal. Will work on administering Abilify Maintena 400 mg instead. Given Abilify Maintena 400 mg IM 01/02/2024. Discontinue oral Abilify after 3 more doses. Continue Caplyta 42mg daily, will add depakote 250mg bid with increase planned up to 500mg bid. 2.? Continue every 15 minute checks for safety. 3.? Encourage individual, group and milieu therapies. 4.? Seeking guardianship. 5. Patient placed on a 21 day hold secondary to significant fear of her inability to care for herself against the backdrop of her functional inability demonstrated by the [facility] report as well as combination of that with addiction. Will need to do a 90-day hold application by tomorrow. 6. Encourage sobriety at the highest level of care available. Began level 2 for process of guardianship. Patient had level 2 interview which was a challenge for her. Appears she has an accepting facility once we get guardianship and level 2 completely approved. Awaiting guardianship hearing still. Involuntary Hold Information 2 96 Hour Hold: 96 Hour Involuntary Admission: Yes 96 Hour Hold Ending Date: 12/15/23 96 Hour Hold Ending Time: 01:42 Attestations NPU 2 Medical Necessity Statement*: Inpatient hospitalization is medically necessary and the clinically appropriate intervention at this time. We will monitor medication to make changes as indicated. The patient's likely length of stay 10-14 days. Patient is candidate for guardianship and placement. Coding Level of Care Code Acute Code for [facility] Diagnoses Schizophrenia, paranoid F20.0 Alcohol dependence, 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
[2024-01-11] MEDS: ARIPiprazole 10 mg Tablet PO (08:39)
[2024-01-11] MEDS: divalproex DR 250 mg Tablet PO ×2 (08:39→17:16)
[2024-01-11] MEDS: nicotine 4 mg lozenge MUCOUS MEM ×2 (08:43→17:18)
[2024-01-11 14:00] VITALS: BP 122/81; PULSE 96; RESP 17; O2SAT 97
[2024-01-11] MEDS: CAPLYTA 42 MG 1 EACH PO (17:16)
[2024-01-11 20:13] VITALS: BP 125/74; PULSE 93; RESP 18; TEMP 36.6; O2SAT 94
[2024-01-11] MEDS: trazodone 100 mg Tablet 150 MG PO (21:03)
[2024-01-12 00:43] VITALS: PULSE 103; O2SAT 96
[2024-01-12] MEDS: guaiFENesin-dextromethorphan UDC 10 mL PO (01:01)
--- NOTE | 2024-01-12 01:04 | PC.NURSE ---
Congestion Patient approached nurse's station with complaint of shortness of breath. Patient stated she has asthma and typically uses an inhaler. No history of asthma in chart, no history of inhaler use in home medication list. Patient's respirations even and unlabored, spo2 96%, HR 106, lungs clear to auscultation. When asked if patient felt anxious, patient denied any anxiety and when offered anxiety medications, patient refused. Patient then stated that she felt congested and that was contributing to her shortness of breath. Robitussin administered per MAY. Patient then requested her bible out of her personal belongings; bible gave to patient to have in her room.
[2024-01-12 06:00] VITALS: BP 127/86; PULSE 90; RESP 18; O2SAT 98
[2024-01-12] MEDS: nicotine 4 mg lozenge MUCOUS MEM ×3 (07:08→19:51)
--- NOTE | 2024-01-12 08:39 | W.PM.NPUPNS ---
Subjective NPU Subjective: Patient presented today reporting that things are going fairly well. She will somewhat caught off guard by getting her 90-day hold paperwork but was able to manage the information that it changes nothing. Ultimately she is been less irritable and managing herself better per staff reports and direct observation. She denied any side effects to her medication. Mental Status Exam MSE Comments: This is an obese white female with hospital scrubs on with limited grooming and eye contact.? No abnormal movements except for mild psychomotor retardation.? She was cooperative with exam in mild distress.? Speech was more productive in rate and volume and childlike. Mood described as okay but how long do think I will need to be here before I can go to the new place, her affect was less odd and slightly subdued. Thought process was linear but derailed later. Thought content: Patient denied suicidal or homicidal ideation, There was some ideas of reference and odd beliefs There was evidence of paranoia. ? She continued to voice frustration about being here. Attention and concentration were limited and memory appeared mostly reliable, but none were formally tested.? She is alert and oriented x person and place.? Insight and judgment limited, Impulse control is limited versus impaired.? Intellectual ability is impaired. Vitals/I&O/Wt Last Vital Signs Temp 97.8 F 01/11/24 20:13 Pulse 90 01/12/24 06:00 Resp 18 01/12/24 06:00 BP 127/86 01/12/24 06:00 Pulse Ox 98 01/12/24 06:00 O2 Del Method Room Air 01/12/24 00:43 01/11/24 01/12/24 01/12/24 22:59 06:59 14:59 Intake Total 480 / 480 Balance 480 / 480 Data NPU 12/09/23 02:00 12/09/23 02:00 A&P Assessment and plan (1) Schizophrenia, paranoid: (2) Alcohol dependence, in remission: (3) Nicotine dependence, cigarettes, uncomplicated: (4) Mild intellectual disabilities: (5) Other stimulant dependence, in remission: (6) Lack of access to transportation: (7) Impulse control disorder, unspecified: Plan This is a 42-year-old white female with a long history of schizophrenia and 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 She presents somewhat endorsing that she has done a little better after being here and the safety of the unit overnight. 1.? Abilify IM 300mg as single agent appears to be less than optimal. Will work on administering Abilify Maintena 400 mg instead. Given Abilify Maintena 400 mg IM 01/02/2024. Discontinue oral Abilify after 2 more doses. Continue Caplyta 42mg daily, will add depakote 250mg bid with increase planned up to 500mg bid. 2.? Continue every 15 minute checks for safety. 3.? Encourage individual, group and milieu therapies. 4.? Seeking guardianship. 5. Patient placed on a 21 day hold secondary to significant fear of her inability to care for herself against the backdrop of her functional inability demonstrated by the [facility] report as well as combination of that with addiction. Patient served with her 90-day hold hearing paperwork. 6. Encourage sobriety at the highest level of care available. Began level 2 for process of guardianship. Patient had level 2 interview which was a challenge for her. Appears she has an accepting facility once we get guardianship and level 2 completely approved. Awaiting guardianship hearing still. It appears she was deemed incompetent back in May but that the [facility] has not moved forward with anything. We will be in discussion with him about how to proceed more quickly. Involuntary Hold Information 96 Hour Hold: 96 Hour Involuntary Admission: Yes 96 Hour Hold Ending Date: 12/15/23 96 Hour Hold Ending Time: 01:42 Attestations NPU Medical Necessity Statement*: Inpatient hospitalization is medically necessary and the clinically appropriate intervention at this time. We will monitor medication to make changes as indicated. The patient's likely length of stay 10-14 days. Patient is candidate for guardianship and placement. Coding Level of Care Code Acute Code for [facility] Diagnoses Schizophrenia, paranoid F20.0 Alcohol dependence, 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
[2024-01-12] MEDS: ARIPiprazole 10 mg Tablet PO (08:53)
[2024-01-12] MEDS: divalproex DR 250 mg Tablet PO ×2 (08:53→18:18)
[2024-01-12] MEDS: nicotine 21 mg Patch 1 PATCH TRANSDERMA (09:41)
[2024-01-12 14:00] VITALS: BP 109/68; PULSE 86; RESP 18; TEMP 36.9; O2SAT 92
[2024-01-12] MEDS: CAPLYTA 42 MG 1 EACH PO (17:04)
[2024-01-12 19:50] VITALS: BP 133/81; PULSE 98; RESP 19; TEMP 36.4; O2SAT 100
[2024-01-12] MEDS: trazodone 100 mg Tablet 150 MG PO (20:16)
[2024-01-13 06:00] VITALS: BP 120/75; PULSE 100; RESP 18; TEMP 36.6; O2SAT 97
--- NOTE | 2024-01-13 06:39 | P.NPUPN_ITS ---
Subjective NPU 2 Subjective: Patient presented today reporting that she is going to go to her 90-day hold hearing. She endorsed doing better overall and awaiting [facility] on February 08, 2024. We discussed attempting to get that at an earlier date. We discussed that she continues to have acceptance at a facility and is just a matter of time. She denied any side effects to the medication or any other problems. Mental Status Exam 2 MSE Comments: This is an obese white female with hospital scrubs on with limited grooming and eye contact.? No abnormal movements except for mild psychomotor retardation.? She was cooperative with exam in mild distress.? Speech was more productive in rate and volume and childlike. Mood described as okay but how long do think I will need to be here before I can go to the new place, her affect was less odd and slightly subdued. Thought process was linear but derailed later. Thought content: Patient denied suicidal or homicidal ideation, There was some ideas of reference and odd beliefs There was evidence of paranoia. ? She continued to voice frustration about being here. Attention and concentration were limited and memory appeared mostly reliable, but none were formally tested.? She is alert and oriented x person and place.? Insight and judgment limited, Impulse control is limited versus impaired.? Intellectual ability is impaired. Vitals/I&O/Wt Last Vital Signs Temp 97.9 F 01/13/24 06:00 Pulse 100 01/13/24 06:00 Resp 18 01/13/24 06:00 BP 120/75 01/13/24 06:00 Pulse Ox 97 01/13/24 06:00 O2 Del Method Room Air 01/12/24 00:43 Data NPU 12/09/23 02:00 12/09/23 02:00 A&P Assessment and plan (1) Schizophrenia, paranoid: (2) Alcohol dependence, in remission: (3) Nicotine dependence, cigarettes, uncomplicated: (4) Mild intellectual disabilities: (5) Other stimulant dependence, in remission: (6) Lack of access to transportation: (7) Impulse control disorder, unspecified: Plan This is a 42-year-old white female with a long history of schizophrenia and 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 She presents somewhat endorsing that she has done a little better after being here and the safety of the unit overnight. 1.? Abilify IM 300mg as single agent appears to be less than optimal. Will work on administering Abilify Maintena 400 mg instead. Given Abilify Maintena 400 mg IM 01/02/2024. Discontinue oral Abilify after 1 more dose. Continue Caplyta 42mg daily, will add depakote 250mg bid with increase planned up to 500mg bid. 2.? Continue every 15 minute checks for safety. 3.? Encourage individual, group and milieu therapies. 4.? Seeking guardianship. 5. Patient placed on a 21 day hold secondary to significant fear of her inability to care for herself against the backdrop of her functional inability demonstrated by the [facility] report as well as combination of that with addiction. Patient served with her 90-day hold hearing paperwork. 6. Encourage sobriety at the highest level of care available. Began level 2 for process of guardianship. Patient had level 2 interview which was a challenge for her. Appears she has an accepting facility once we get guardianship and level 2 completely approved. Awaiting guardianship hearing still. It appears she was deemed incompetent back in May but that the [facility] has not moved forward with anything. We will be in discussion with him about how to proceed more quickly. Involuntary Hold Information 2 96 Hour Hold: 96 Hour Involuntary Admission: Yes 96 Hour Hold Ending Date: 12/15/23 96 Hour Hold Ending Time: 01:42 Attestations NPU 2 Medical Necessity Statement*: Inpatient hospitalization is medically necessary and the clinically appropriate intervention at this time. We will monitor medication to make changes as indicated. The patient's likely length of stay 26 days. Patient is candidate for guardianship and placement. Coding Level of Care Code Acute Code for [facility]wd Diagnoses Schizophrenia, paranoid F20.0 Alcohol dependence, 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
[2024-01-13] MEDS: divalproex DR 250 mg Tablet PO ×2 (08:10→19:21)
[2024-01-13] MEDS: ARIPiprazole 10 mg Tablet PO (08:11)
[2024-01-13] MEDS: nicotine 4 mg lozenge MUCOUS MEM ×3 (08:11→20:21)
[2024-01-13 14:00] VITALS: BP 117/82; PULSE 89; RESP 16; TEMP 36.9; O2SAT 100
[2024-01-13] MEDS: CAPLYTA 42 MG 1 EACH PO (19:21)
[2024-01-13] MEDS: trazodone 100 mg Tablet 150 MG PO (20:11)
[2024-01-13 21:21] VITALS: BP 115/70; PULSE 87; RESP 18; TEMP 36.7; O2SAT 97
[2024-01-14 06:00] VITALS: BP 91/63; PULSE 84; RESP 17; TEMP 36.8; O2SAT 97
[2024-01-14] MEDS: divalproex DR 250 mg Tablet PO ×2 (08:06→17:35)
[2024-01-14] MEDS: ARIPiprazole 10 mg Tablet PO (08:06)
[2024-01-14] MEDS: ibuprofen 600 mg Tablet PO (08:06)
[2024-01-14] MEDS: nicotine 4 mg lozenge MUCOUS MEM ×3 (08:09→16:36)
--- NOTE | 2024-01-14 09:43 | W.PM.NPUPNS ---
Subjective NPU Subjective: Patient presented today reporting that she is doing fine. We discussed the fact that we will try to get her hearing date moved up but that we have an understanding of where things are right now. She denied any side effects to her medication and we discussed that we were going to be discontinuing the oral Abilify after tomorrow. Mental Status Exam MSE Comments: This is an obese white female with hospital scrubs on with limited grooming and eye contact.? No abnormal movements except for mild psychomotor retardation.? She was cooperative with exam in mild distress.? Speech was more productive in rate and volume and childlike. Mood described as okay but how long do think I will need to be here before I can go to the new place, her affect was less odd and slightly subdued. Thought process was linear but derailed later. Thought content: Patient denied suicidal or homicidal ideation, There was some ideas of reference and odd beliefs There was evidence of paranoia. ? She continued to voice frustration about being here. Attention and concentration were limited and memory appeared mostly reliable, but none were formally tested.? She is alert and oriented x person and place.? Insight and judgment limited, Impulse control is limited versus impaired.? Intellectual ability is impaired. Vitals/I&O/Wt Last Vital Signs Temp 98.3 F 01/14/24 06:00 Pulse 84 01/14/24 06:00 Resp 17 01/14/24 06:00 BP 91/63 01/14/24 06:00 Pulse Ox 97 01/14/24 06:00 O2 Del Method Room Air 01/14/24 06:00 Data NPU 12/09/23 02:00 12/09/23 02:00 A&P Assessment and plan (1) Schizophrenia, paranoid: (2) Alcohol dependence, in remission: (3) Nicotine dependence, cigarettes, uncomplicated: (4) Mild intellectual disabilities: (5) Other stimulant dependence, in remission: (6) Lack of access to transportation: (7) Impulse control disorder, unspecified: Plan This is a 42-year-old white female with a long history of schizophrenia and 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 She presents somewhat endorsing that she has done a little better after being here and the safety of the unit overnight. 1.? Abilify IM 300mg as single agent appears to be less than optimal. Will work on administering Abilify Maintena 400 mg instead. Given Abilify Maintena 400 mg IM 01/02/2024. Discontinue oral Abilify tomorrow. Continue Caplyta 42mg daily, will add depakote 250mg bid with increase planned up to 500mg bid. 2.? Continue every 15 minute checks for safety. 3.? Encourage individual, group and milieu therapies. 4.? Seeking guardianship. 5. Patient placed on a 21 day hold secondary to significant fear of her inability to care for herself against the backdrop of her functional inability demonstrated by the [facility] report as well as combination of that with addiction. Patient served with her 90-day hold hearing paperwork. 6. Encourage sobriety at the highest level of care available. Began level 2 for process of guardianship. Patient had level 2 interview which was a challenge for her. Appears she has an accepting facility once we get guardianship and level 2 completely approved. Awaiting guardianship hearing still. It appears she was deemed incompetent back in May but that the county has not moved forward with anything. We will be in discussion with him about how to proceed more quickly. Attempting to get her 02/08/2024 hearing moved up. Involuntary Hold Information 96 Hour Hold: 96 Hour Involuntary Admission: Yes 96 Hour Hold Ending Date: 12/15/23 96 Hour Hold Ending Time: 01:42 Attestations NPU Medical Necessity Statement*: Inpatient hospitalization is medically necessary and the clinically appropriate intervention at this time. We will monitor medication to make changes as indicated. The patient's likely length of stay 25 days. Patient is candidate for guardianship and placement. Coding Level of Care Code Acute Code for [facility] Fwd Diagnoses Schizophrenia, paranoid F20.0 Alcohol dependence, 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
[2024-01-14 13:45] VITALS: BP 112/78; PULSE 83; RESP 17; TEMP 36.7; O2SAT 99
[2024-01-14] MEDS: CAPLYTA 42 MG 1 EACH PO (17:35)
[2024-01-14] MEDS: hyDROXYzine 25 mg Capsule 50 MG PO (20:30)
[2024-01-14] MEDS: trazodone 100 mg Tablet 150 MG PO (20:30)
[2024-01-14 20:55] VITALS: BP 118/78; PULSE 91; RESP 18; TEMP 36.9; O2SAT 97
[2024-01-15 06:00] VITALS: BP 111/73; PULSE 92; RESP 16; TEMP 36.6; O2SAT 97
--- NOTE | 2024-01-15 07:55 | W.PM.NPUPNS ---
Subjective NPU Subjective: Patient presented today reporting that she is doing better. He continues to be patient and awaiting her moved to a new facility after guardianship. We continue to discuss her guardianship hearing and attempting to get it moved to sooner. She denied any side effects to the medication and we discussed discontinuing her oral Abilify. Mental Status Exam MSE Comments: This is an obese white female with hospital scrubs on with limited grooming and eye contact.? No abnormal movements except for mild psychomotor retardation.? She was cooperative with exam in mild distress.? Speech was more productive in rate and volume and childlike. Mood described as okay, her affect was less odd and slightly subdued. Thought process was linear but derailed later. Thought content: Patient denied suicidal or homicidal ideation, There was some ideas of reference and odd beliefs There was evidence of paranoia. ?Attention and concentration were improving and memory appeared mostly reliable, but none were formally tested.? She is alert and oriented x person and place.? Insight and judgment limited, Impulse control is limited.? Intellectual ability is impaired. Vitals/I&O/Wt Last Vital Signs Temp 97.8 F 01/15/24 06:00 Pulse 92 01/15/24 06:00 Resp 16 01/15/24 06:00 BP 111/73 01/15/24 06:00 Pulse Ox 97 01/15/24 06:00 O2 Del Method Room Air 01/14/24 13:45 Weight last 48 hrs Weight 99.518 kg Data NPU 12/09/23 02:00 12/09/23 02:00 A&P Assessment and plan (1) Schizophrenia, paranoid: (2) Alcohol dependence, in remission: (3) Nicotine dependence, cigarettes, uncomplicated: (4) Mild intellectual disabilities: (5) Other stimulant dependence, in remission: (6) Lack of access to transportation: (7) Impulse control disorder, unspecified: Plan This is a 42-year-old white female with a long history of schizophrenia and 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 She presents somewhat endorsing that she has done a little better after being here and the safety of the unit overnight. 1.? Abilify IM 300mg as single agent appears to be less than optimal. Will work on administering Abilify Maintena 400 mg instead. Given Abilify Maintena 400 mg IM 01/02/2024. Discontinue oral Abilify. Continue Caplyta 42mg daily, will add depakote 250mg bid with increase planned up to 500mg bid. 2.? Continue every 15 minute checks for safety. 3.? Encourage individual, group and milieu therapies. 4.? Seeking guardianship. 5. Patient placed on a 21 day hold secondary to significant fear of her inability to care for herself against the backdrop of her functional inability demonstrated by the [facility] report as well as combination of that with addiction. Patient served with her 90-day hold hearing paperwork. 6. Encourage sobriety at the highest level of care available. Began level 2 for process of guardianship. Patient had level 2 interview which was a challenge for her. Appears she has an accepting facility once we get guardianship and level 2 completely approved. Awaiting guardianship hearing still. It appears she was deemed incompetent back in May but that the county has not moved forward with anything. We will be in discussion with him about how to proceed more quickly. Attempting to get her 02/08/2024 hearing moved up. Involuntary Hold Information 96 Hour Hold: 96 Hour Involuntary Admission: Yes 96 Hour Hold Ending Date: 12/15/23 96 Hour Hold Ending Time: 01:42 Attestations NPU Medical Necessity Statement*: Inpatient hospitalization is medically necessary and the clinically appropriate intervention at this time. We will monitor medication to make changes as indicated. The patient's likely length of stay 24 days. Patient is candidate for guardianship and placement. Coding Level of Care Code Acute Code for [facility] Fwd Diagnoses Schizophrenia, paranoid F20.0 Alcohol dependence, 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
[2024-01-15] MEDS: divalproex DR 250 mg Tablet PO ×2 (08:40→17:27)
[2024-01-15] MEDS: nicotine 4 mg lozenge MUCOUS MEM ×4 (08:40→20:51)
[2024-01-15 14:00] VITALS: BP 106/73; PULSE 74; RESP 16; TEMP 37; O2SAT 99
[2024-01-15] MEDS: CAPLYTA 42 MG 1 EACH PO (17:27)
[2024-01-15 19:52] VITALS: BP 100/67; PULSE 87; RESP 16; TEMP 36.7; O2SAT 98
[2024-01-15] MEDS: trazodone 100 mg Tablet 150 MG PO (20:49)
[2024-01-16 06:00] VITALS: BP 102/75; PULSE 86; RESP 17; TEMP 36.7; O2SAT 97
[2024-01-16] MEDS: nicotine 4 mg lozenge MUCOUS MEM ×5 (06:00→21:07)
[2024-01-16] MEDS: divalproex DR 250 mg Tablet PO ×3 (08:48→20:19)
[2024-01-16 14:00] VITALS: BP 109/73; PULSE 88; RESP 16; TEMP 36.6; O2SAT 99
--- NOTE | 2024-01-16 14:36 | P.NPUPN_ITS ---
Subjective NPU 2 Subjective: 43-year-old female with schizophrenia cu rrently awaiting placement. She has appear to be more accepting regarding her potential for requiring guardianship. She reported some increase in appetite. She had been redirectable with less house outburst noted on the unit. She had continued to struggle with some completion of routine activities of daily living. She had continued to report having special bower and abilities stating that she had the power to read other people's thoughts. Mental Status Exam 2 MSE Comments: This is an obese white female with hospital scrubs on with limited grooming and eye contact.? No abnormal movements except for mild psychomotor retardation.? She was cooperative with exam in mild distress.? Speech was more productive in rate and volume and childlike. Mood described as okay. Her affect was less odd and slightly subdued. Thought process was linear and logical. Thought content: Patient denied suicidal or homicidal ideation, There was some ideas of reference and odd beliefs. There was evidence of mild paranoia. ?Attention and concentration were improving and memory appeared mostly reliable, but none were formally tested.? She is alert and oriented x person and place.? Insight and judgment limited, Impulse control is limited.? Vitals/I&O/Wt Last Vital Signs Temp 98 F 01/16/24 14:00 Pulse 88 01/16/24 14:00 Resp 16 01/16/24 14:00 BP 109/73 01/16/24 14:00 Pulse Ox 99 01/16/24 14:00 O2 Del Method Room Air 01/16/24 14:00 Weight last 48 hrs Weight 99.518 kg Data NPU 12/09/23 02:00 12/09/23 02:00 A&P Assessment and plan (1) Schizophrenia, paranoid: (2) Alcohol dependence, in remission: (3) Nicotine dependence, cigarettes, uncomplicated: (4) Mild intellectual disabilities: (5) Other stimulant dependence, in remission: (6) Lack of access to transportation: (7) Impulse control disorder, unspecified: Plan This is a 42-year-old white female with a long history of schizophrenia and 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 She presents somewhat endorsing that she has done a little better after being here and the safety of the unit overnight. 1.? Timothy CH 300mg as single agent appears to be less than optimal. Will work on administering Abilify Maintena 400 mg instead. Given Abilify Maintena 400 mg IM 01/02/2024. Discontinue oral Abilify. Continue Caplyta 42mg daily, increase depakote to 250mg tid. 2.? Continue every 15 minute checks for safety. 3.? Encourage individual, group and milieu therapies. 4.? Seeking guardianship. 5. Patient placed on a 21 day hold secondary to significant fear of her inability to care for herself against the backdrop of her functional inability demonstrated by the [facility] report as well as combination of that with addiction. Patient served with her 90-day hold hearing paperwork. 6. Encourage sobriety at the highest level of care available. Began level 2 for process of guardianship. Patient had level 2 interview which was a challenge for her. Appears she has an accepting facility once we get guardianship and level 2 completely approved. Awaiting guardianship hearing still. It appears she was deemed incompetent back in May but that the county has not moved forward with anything. We will be in discussion with him about how to proceed more quickly. Attempting to get her 02/08/2024 hearing moved up. Involuntary Hold Information 2 96 Hour Hold: 96 Hour Involuntary Admission: Yes 96 Hour Hold Ending Date: 12/15/23 96 Hour Hold Ending Time: 01:42 Attestations NPU 2 Medical Necessity Statement*: Inpatient hospitalization is medically necessary and the clinically appropriate intervention at this time. We will monitor medication to make changes as indicated. The patient's likely length of stay 24 days. Patient is candidate for guardianship and placement. Coding Level of Care Code Acute Code for [facility] Fwd Diagnoses Schizophrenia, paranoid F20.0 Alcohol dependence, 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
[2024-01-16] MEDS: CAPLYTA 42 MG 1 EACH PO (16:46)
[2024-01-16 19:25] VITALS: BP 121/87; PULSE 94; RESP 18; TEMP 36.8; O2SAT 97
[2024-01-16] MEDS: trazodone 100 mg Tablet 150 MG PO (20:19)
[2024-01-17 06:00] VITALS: BP 124/77; PULSE 93; RESP 16; TEMP 36.6; O2SAT 97
[2024-01-17] MEDS: divalproex DR 250 mg Tablet PO ×3 (08:05→19:04)
[2024-01-17] MEDS: nicotine 4 mg lozenge MUCOUS MEM ×3 (08:46→19:04)
[2024-01-17 14:00] VITALS: BP 149/74; PULSE 76; RESP 16; TEMP 36.6; O2SAT 98
--- NOTE | 2024-01-17 16:33 | P.NPUPN_ITS ---
Subjective NPU 2 Subjective: 43-year-old female with schizophrenia cu rrently awaiting placement. The patient reported no side effects from her Caplyta. She had reported no cravings for alcohol. She had continued to report some sadness about being here in the hospital but stated that she was looking forward to going to a different place and appeared to be more understanding regarding her placement in a home under guardianship. She had remained somewhat isolative but was able to attend groups. She reported no side effects from her medication. Mental Status Exam 2 MSE Comments: This is an obese white female with hospital scrubs on with limited grooming and eye contact.? No abnormal movements except for mild psychomotor retardation.? She was cooperative with exam in mild distress.? Speech was more productive in rate and volume and remained childlike. Mood described as allright. Her affect was more tearful today. Thought process was linear and logical. Thought content: Patient denied suicidal or homicidal ideation, There was continued ideas of reference and odd beliefs. There was evidence of mild paranoia. ?Attention and concentration were improving and memory appeared mostly reliable, but none were formally tested.? She is alert and oriented x person and place.? Insight was improving and judgment remained limited, Impulse control is limited.? Vitals/I&O/Wt Last Vital Signs Temp 97.9 F 01/17/24 06:00 Pulse 93 01/17/24 06:00 Resp 16 01/17/24 06:00 BP 124/77 01/17/24 06:00 Pulse Ox 97 01/17/24 06:00 O2 Del Method Room Air 01/17/24 06:00 Data NPU 12/09/23 02:00 12/09/23 02:00 A&P Assessment and plan (1) Schizophrenia, paranoid: (2) Alcohol dependence, in remission: (3) Nicotine dependence, cigarettes, uncomplicated: (4) Mild intellectual disabilities: (5) Other stimulant dependence, in remission: (6) Lack of access to transportation: (7) Impulse control disorder, unspecified: Plan This is a 42-year-old white female with a long history of schizophrenia and 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 She presents somewhat endorsing that she has done a little better after being here and the safety of the unit overnight. 1.? Will work on administering Abilify Maintena 400 mg instead. Given Abilify Maintena 400 mg IM 01/02/2024. Discontinue oral Abilify. Continue Caplyta 42mg daily, continue depakote to 250mg tid. 2.? Continue every 15 minute checks for safety. 3.? Encourage individual, group and milieu therapies. 4.? Seeking guardianship. 5. Patient placed on a 21 day hold secondary to significant fear of her inability to care for herself against the backdrop of her functional inability demonstrated by the [facility] report as well as combination of that with addiction. Patient served with her 90-day hold hearing paperwork. 6. Encourage sobriety at the highest level of care available. Began level 2 for process of guardianship. Patient had level 2 interview which was a challenge for her. Appears she has an accepting facility once we get guardianship and level 2 completely approved. Awaiting guardianship hearing still. It appears she was deemed incompetent back in May but that the [facility] has not moved forward with anything. We will be in discussion with him about how to proceed more quickly. Hoping for possible guardianship hearing next week. Involuntary Hold Information 2 96 Hour Hold: 96 Hour Involuntary Admission: Yes 96 Hour Hold Ending Date: 12/15/23 96 Hour Hold Ending Time: 01:42 Attestations NPU 2 Medical Necessity Statement*: Inpatient hospitalization is medically necessary and the clinically appropriate intervention at this time. We will monitor medication to make changes as indicated. The patient's likely length of stay 24 days. Patient is candidate for guardianship and placement. Coding Level of Care Code Acute Code for [facility] Fwd Diagnoses Schizophrenia, paranoid F20.0 Alcohol dependence, 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
[2024-01-17] MEDS: CAPLYTA 42 MG 1 EACH PO (17:09)
[2024-01-17] MEDS: trazodone 100 mg Tablet 150 MG PO (19:04)
[2024-01-17 20:05] VITALS: BP 118/81; PULSE 65; RESP 18; TEMP 36.6; O2SAT 100
[2024-01-18 06:00] VITALS: BP 100/65; PULSE 103; RESP 16; TEMP 36.6; O2SAT 98
[2024-01-18] MEDS: nicotine 4 mg lozenge MUCOUS MEM ×3 (08:25→18:00)
[2024-01-18] MEDS: divalproex DR 250 mg Tablet PO ×3 (08:25→19:31)
[2024-01-18 13:53] VITALS: BP 107/75; PULSE 92; RESP 16; TEMP 36.9; O2SAT 96
[2024-01-18] MEDS: CAPLYTA 42 MG 1 EACH PO (16:02)
--- NOTE | 2024-01-18 17:55 | P.NPUPN_ITS ---
Subjective NPU 2 Subjective: 43-year-old female with schizophrenia cu rrently awaiting placement. Patient had reported that she still wished to go home. She had reported no cravings for alcohol stating that she had not used alcohol in 6 years. She had continued to report that she had felt anxious and reported that her thoughts were racing at night. She had reported no depressive symptoms. She had reported that she thought that her mother wanted her to be fat but did not elaborate regarding how her mother could influence her weight. She had continued to be somewhat grandiose stating that she had special abilities but appeared to be more covert in regards to revealing this information. Mental Status Exam 2 MSE Comments: This is an obese white female with hospital scrubs on with limited grooming and eye contact.? No abnormal movements except for mild psychomotor retardation.? She was cooperative with exam in mild distress.? Speech was more productive in rate and volume and remained childlike. Mood described as okay. Her affect was blunted. Thought process was linear and logical. Thought content: Patient denied suicidal or homicidal ideation, There was no overt delusions but ideas of reference remained present. There was evidence of mild paranoia. ?Attention and concentration were improving and memory appeared mostly reliable, but none were formally tested.? She is alert and oriented x person and place.? Insight was improving and judgment remained limited, Impulse control is limited.? Vitals/I&O/Wt Last Vital Signs Temp 98.4 F 01/18/24 13:53 Pulse 92 01/18/24 13:53 Resp 16 01/18/24 13:53 BP 107/75 01/18/24 13:53 Pulse Ox 96 01/18/24 13:53 O2 Del Method Room Air 01/18/24 13:53 Data NPU 12/09/23 02:00 12/09/23 02:00 A&P Assessment and plan (1) Schizophrenia, paranoid: (2) Alcohol dependence, in remission: (3) Nicotine dependence, cigarettes, uncomplicated: (4) Mild intellectual disabilities: (5) Other stimulant dependence, in remission: (6) Lack of access to transportation: (7) Impulse control disorder, unspecified: Plan This is a 42-year-old white female with a long history of schizophrenia and 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 She presents somewhat endorsing that she has done a little better after being here and the safety of the unit overnight. 1.? Will work on administering Abilify Maintena 400 mg instead. Given Abilify Maintena 400 mg IM 01/02/2024. Continue Caplyta 42mg daily, continue depakote to 250mg tid. Increase trazodone to 200mg at night. 2.? Continue every 15 minute checks for safety. 3.? Encourage individual, group and milieu therapies. 4.? Seeking guardianship. 5. Patient placed on a 21 day hold secondary to significant fear of her inability to care for herself against the backdrop of her functional inability demonstrated by the [facility] report as well as combination of that with addiction. Patient served with her 90-day hold hearing paperwork. 6. Encourage sobriety at the highest level of care available. Began level 2 for process of guardianship. Patient had level 2 interview which was a challenge for her. Appears she has an accepting facility once we get guardianship and level 2 completely approved. Guardianship hearing scheduled for 01/25/24. Involuntary Hold Information 2 96 Hour Hold: 96 Hour Involuntary Admission: Yes 96 Hour Hold Ending Date: 12/15/23 96 Hour Hold Ending Time: 01:42 Attestations NPU 2 Medical Necessity Statement*: Inpatient hospitalization is medically necessary and the clinically appropriate intervention at this time. We will monitor medication to make changes as indicated. The patient's likely length of stay 7-10 days. Patient is candidate for guardianship and placement. Coding Level of Care Code Acute Code for [facility]w Diagnoses Schizophrenia, paranoid F20.0 Alcohol dependence, 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
[2024-01-18] MEDS: trazodone 100 mg Tablet 200 MG PO (19:31)
[2024-01-18 19:58] VITALS: BP 89/54; PULSE 88; RESP 18; TEMP 37; O2SAT 96
[2024-01-19 06:00] VITALS: BP 102/65; PULSE 81; RESP 16; TEMP 36.5; O2SAT 98
[2024-01-19] MEDS: nicotine 4 mg lozenge MUCOUS MEM ×3 (08:42→17:49)
[2024-01-19] MEDS: divalproex DR 250 mg Tablet PO (08:42)
[2024-01-19] MEDS: guaiFENesin-dextromethorphan UDC 10 mL PO (12:05)
[2024-01-19 12:30] VITALS: BP 104/73; PULSE 83; RESP 18; TEMP 36.8; O2SAT 98
--- NOTE | 2024-01-19 15:01 | W.PM.NPUPNS ---
Subjective NPU Subjective: 43-year-old female with schizophrenia currently awaiting placement. Patient continued to have bizarre thoughts as she had made a statement stating that she thought that insist was acceptable. She had stated that she did not want to live at home and stated that she still was uncertain about her living situation. 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 There were no acts of aggression. She reported that she had remained sober off of alcohol for years and had no cravings at this time. Mental Status Exam MSE Comments: This is an obese white female with hospital scrubs on with limited grooming and eye contact.? No abnormal movements except for mild psychomotor retardation.? She was cooperative with exam in mild distress.? Speech was more productive in rate and volume and remained childlike. Mood described as good. Her affect was odd. Thought process was linear and logical. Thought content: Patient denied suicidal or homicidal ideation, There was no overt delusions but ideas of reference remained present. There was evidence of mild paranoia. ?Attention and concentration were improving and memory appeared mostly reliable, but none were formally tested.? She is alert and oriented x person and place.? Insight was improving and judgment remained limited, Impulse control is limited.? Vitals/I&O/Wt Last Vital Signs Temp 98.3 F 01/19/24 12:30 Pulse 83 01/19/24 12:30 Resp 18 01/19/24 12:30 BP 104/73 01/19/24 12:30 Pulse Ox 98 01/19/24 12:30 O2 Del Method Room Air 01/18/24 13:53 Data NPU 12/09/23 02:00 12/09/23 02:00 A&P Assessment and plan (1) Schizophrenia, paranoid: (2) Alcohol dependence, in remission: (3) Nicotine dependence, cigarettes, uncomplicated: (4) Mild intellectual disabilities: (5) Other stimulant dependence, in remission: (6) Lack of access to transportation: (7) Impulse control disorder, unspecified: Plan This is a 42-year-old white female with a long history of schizophrenia and 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 She presents somewhat endorsing that she has done a little better after being here and the safety of the unit overnight. 1.? Will work on administering Abilify Maintena 400 mg instead. Given Abilify Maintena 400 mg IM 01/02/2024. Continue Caplyta 42mg daily, Increase Depakote to 500mg bid. Continue trazodone to 200mg at night. 2.? Continue every 15 minute checks for safety. 3.? Encourage individual, group and milieu therapies. 4.? Seeking guardianship. 5. Patient placed on a 21 day hold secondary to significant fear of her inability to care for herself against the backdrop of her functional inability demonstrated by the [facility] report as well as combination of that with addiction. Patient served with her 90-day hold hearing paperwork. 6. Encourage sobriety at the highest level of care available. Began level 2 for process of guardianship. Patient had level 2 interview which was a challenge for her. Appears she has an accepting facility once we get guardianship and level 2 completely approved. Guardianship hearing scheduled for 01/25/24. Involuntary Hold Information 96 Hour Hold: 96 Hour Involuntary Admission: Yes 96 Hour Hold Ending Date: 12/15/23 96 Hour Hold Ending Time: 01:42 Attestations NPU Medical Necessity Statement*: Inpatient hospitalization is medically necessary and the clinically appropriate intervention at this time. We will monitor medication to make changes as indicated. The patient's likely length of stay 7-10 days. Patient is candidate for guardianship and placement. Coding Level of Care Code Acute Code for [facility] Fwd Diagnoses Schizophrenia, paranoid F20.0 Alcohol dependence, 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
[2024-01-19] MEDS: divalproex DR 250 mg Tablet 500 MG PO (17:47)
[2024-01-19] MEDS: CAPLYTA 42 MG 1 EACH PO (17:47)
[2024-01-19 19:26] VITALS: BP 105/71; PULSE 78; RESP 16; TEMP 36.6; O2SAT 100
[2024-01-19] MEDS: trazodone 100 mg Tablet 200 MG PO (20:12)
[2024-01-20] MEDS: nicotine 4 mg lozenge MUCOUS MEM ×4 (03:45→16:26)
[2024-01-20] MEDS: guaiFENesin-dextromethorphan UDC 10 mL PO ×2 (04:34→10:41)
[2024-01-20 06:00] VITALS: BP 119/83; PULSE 75; RESP 17; TEMP 36.8; O2SAT 97
[2024-01-20] MEDS: divalproex DR 250 mg Tablet 500 MG PO ×2 (08:20→17:26)
[2024-01-20 14:00] VITALS: BP 117/79; PULSE 90; RESP 18; TEMP 36.4; O2SAT 93
--- NOTE | 2024-01-20 16:16 | P.NPUPN_ITS ---
Subjective NPU 2 Subjective: 43-year-old female with schizophrenia cu rrently awaiting placement. She had stated that the handbook writer of this note needed to pray for her. The patient had reported that she had felt more upset today. She had reported that she needed a guide and reported that she was still upset at Alexandre, her ex . She had remained somewhat confused and asked if she had been acting dumb here . She reported that she felt her moods were more up and down. She had reported that her 15 year old son was a sports physiologist and he was smart and special. Mental Status Exam 2 MSE Comments: This is an obese white female with hospital scrubs on with limited grooming and eye contact.? No abnormal movements except for mild psychomotor retardation.? She was cooperative with exam in mild distress.? Speech was more productive in rate and volume and remained childlike. Mood described as stressed. Her affect was labile. Thought process was linear and logical. Thought content: Patient denied suicidal or homicidal ideation, There was no overt delusions but ideas of reference remained present. There was evidence of mild paranoia. ?Attention and concentration were improving and memory appeared mostly reliable, but none were formally tested.? She is alert and oriented x person and place.? Insight was improving and judgment remained limited, Impulse control is limited.? Vitals/I&O/Wt Last Vital Signs Temp 98.3 F 01/20/24 06:00 Pulse 75 01/20/24 06:00 Resp 17 01/20/24 06:00 BP 119/83 01/20/24 06:00 Pulse Ox 97 01/20/24 06:00 O2 Del Method Room Air 01/18/24 13:53 01/20/24 01/20/24 01/20/24 06:59 14:59 22:59 Intake Total 1440 / 1440 Balance 1440 / 1440 Data NPU 12/09/23 02:00 12/09/23 02:00 A&P Assessment and plan (1) Schizophrenia, paranoid: (2) Alcohol dependence, in remission: (3) Nicotine dependence, cigarettes, uncomplicated: (4) Mild intellectual disabilities: (5) Other stimulant dependence, in remission: (6) Lack of access to transportation: (7) Impulse control disorder, unspecified: Plan This is a 42-year-old white female with a long history of schizophrenia and 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 She presents somewhat endorsing that she has done a little better after being here and the safety of the unit overnight. 1.? Given Abilify Maintena 400 mg IM 01/02/2024. Continue Caplyta 42mg daily, Continue Depakote to 500mg bid. Continue trazodone to 200mg at night. 2.? Continue every 15 minute checks for safety. 3.? Encourage individual, group and milieu therapies. 4.? Seeking guardianship. 5. Patient placed on a 21 day hold secondary to significant fear of her inability to care for herself against the backdrop of her functional inability demonstrated by the [facility] report as well as combination of that with addiction. Patient served with her 90-day hold hearing paperwork. 6. Encourage sobriety at the highest level of care available. Began level 2 for process of guardianship. Patient had level 2 interview which was a challenge for her. Appears she has an accepting facility once we get guardianship and level 2 completely approved. Guardianship hearing scheduled for 01/25/24. Involuntary Hold Information 2 96 Hour Hold: 96 Hour Involuntary Admission: Yes 96 Hour Hold Ending Date: 12/15/23 96 Hour Hold Ending Time: 01:42 Attestations NPU 2 Medical Necessity Statement*: Inpatient hospitalization is medically necessary and the clinically appropriate intervention at this time. We will monitor medication to make changes as indicated. The patient's likely length of stay 7-10 days. Patient is candidate for guardianship and placement. Coding Level of Care Code Acute Code for [facility] Fwd Diagnoses Schizophrenia, paranoid F20.0 Alcohol dependence, 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
[2024-01-20] MEDS: CAPLYTA 42 MG 1 EACH PO (16:26)
[2024-01-20 19:59] VITALS: BP 142/93; PULSE 95; RESP 18; TEMP 36.6; O2SAT 99
[2024-01-20] MEDS: trazodone 100 mg Tablet 200 MG PO (20:27)
[2024-01-20] MEDS: OLANZapine 5 mg ODT PO (20:27)
[2024-01-21] MEDS: nicotine 4 mg lozenge MUCOUS MEM ×5 (05:06→18:30)
[2024-01-21 06:00] VITALS: BP 97/73; PULSE 84; RESP 16; TEMP 36.9; O2SAT 99
[2024-01-21] MEDS: divalproex DR 250 mg Tablet 500 MG PO (08:29)
[2024-01-21] MEDS: ondansetron 4 MG Tablet PO (09:36)
[2024-01-21] MEDS: ibuprofen 600 mg Tablet PO (13:37)
[2024-01-21 14:00] VITALS: BP 105/74; PULSE 83; RESP 17; TEMP 36.3; O2SAT 94
--- NOTE | 2024-01-21 16:17 | P.NPUPN_ITS ---
Subjective NPU 2 Subjective: 43-year-old female with schizophrenia cu rrently awaiting placement. She reported no side effects from her medication. She had continued to have bizarre conversations with herself at times. She had reported desire to go to another facility. She reported no desire to drink. She reported no side effects from her current medications. The patient continued to talk about her ex- and children. She had been redirectable on the milieu with no acts of aggression. Mental Status Exam 2 MSE Comments: This is an obese white female with hospital scrubs on with limited grooming and eye contact.? No abnormal movements except for mild psychomotor retardation.? She was cooperative with exam in mild distress.? Speech was more productive in rate and volume and remained childlike. Mood described as stressed. Her affect was labile. Thought process was linear and logical. Thought content: Patient denied suicidal or homicidal ideation, There was no overt delusions but ideas of reference remained present. There was evidence of mild paranoia. ?Attention and concentration were improving and memory appeared mostly reliable, but none were formally tested.? She is alert and oriented x person and place.? Insight was improving and judgment remained limited, Impulse control is limited.? Vitals/I&O/Wt Last Vital Signs Temp 97.4 F L 01/21/24 14:00 Pulse 83 01/21/24 14:00 Resp 17 01/21/24 14:00 BP 105/74 01/21/24 14:00 Pulse Ox 94 01/21/24 14:00 O2 Del Method Room Air 01/18/24 13:53 Data NPU 12/09/23 02:00 12/09/23 02:00 A&P Assessment and plan (1) Schizophrenia, paranoid: (2) Alcohol dependence, in remission: (3) Nicotine dependence, cigarettes, uncomplicated: (4) Mild intellectual disabilities: (5) Other stimulant dependence, in remission: (6) Lack of access to transportation: (7) Impulse control disorder, unspecified: Plan This is a 42-year-old white female with a long history of schizophrenia and 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 She presents somewhat endorsing that she has done a little better after being here and the safety of the unit overnight. 1.? Given Abilify Maintena 400 mg IM 01/02/2024. Continue Caplyta 42mg daily, Switch to depakote ER 1000mg in am. Continue trazodone to 200mg at night. 2.? Continue every 15 minute checks for safety. 3.? Encourage individual, group and milieu therapies. 4.? Seeking guardianship. 5. Patient placed on a 21 day hold secondary to significant fear of her inability to care for herself against the backdrop of her functional inability demonstrated by the [facility] report as well as combination of that with addiction. Patient served with her 90-day hold hearing paperwork. 6. Encourage sobriety at the highest level of care available. Began level 2 for process of guardianship. Patient had level 2 interview which was a challenge for her. Appears she has an accepting facility once we get guardianship and level 2 completely approved. Guardianship hearing scheduled for 01/25/24. Involuntary Hold Information 2 96 Hour Hold: 96 Hour Involuntary Admission: Yes 96 Hour Hold Ending Date: 12/15/23 96 Hour Hold Ending Time: 01:42 Attestations NPU 2 Medical Necessity Statement*: Inpatient hospitalization is medically necessary and the clinically appropriate intervention at this time. We will monitor medication to make changes as indicated. The patient's likely length of stay 7-10 days. Patient is candidate for guardianship and placement. Coding Level of Care Code Acute Code for [facility] Fwd Diagnoses Schizophrenia, paranoid F20.0 Alcohol dependence, 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
[2024-01-21] MEDS: CAPLYTA 42 MG 1 EACH PO (18:04)
[2024-01-21] MEDS: OLANZapine 5 mg ODT PO (20:00)
[2024-01-21] MEDS: trazodone 100 mg Tablet 200 MG PO (20:00)
[2024-01-21] MEDS: divalproex DR 500 mg Tablet PO (20:00)
[2024-01-21 20:29] VITALS: BP 105/74; PULSE 106; RESP 18; TEMP 36.3; O2SAT 98
[2024-01-22 06:00] VITALS: BP 102/71; PULSE 106; RESP 18; TEMP 36.6; O2SAT 94
[2024-01-22] MEDS: nicotine 4 mg lozenge MUCOUS MEM ×2 (06:30→10:45)
[2024-01-22] MEDS: acetaminophen 325 mg Tablet 650 MG PO (07:52)
[2024-01-22] MEDS: divalproex ER 500 mg Tablet (24H) 1000 MG PO (08:20)
[2024-01-22] MEDS: haloperidol 5 mg Tablet PO (12:50)
[2024-01-22 14:00] VITALS: BP 107/64; PULSE 80; RESP 17; O2SAT 99
--- NOTE | 2024-01-22 14:05 | P.NPUPN_ITS ---
Subjective NPU 2 Subjective: 43-year-old female with schizophrenia cu rrently awaiting placement. She reported no side effects from her medication. The patient reports feeling better with Depakote taken in the morning. She continued to report that she wanted to go home despite being informed that there would be a hearing later this week regarding others gaining guardianship over her because of her inability to live independently. She had reported having problems with being forgetful. She was compliant on the milieu. She had reported good energy. She continued to report having special bower and abilities. Mental Status Exam 2 MSE Comments: This is an obese white female with hospital scrubs on with limited grooming and eye contact.? No abnormal movements except for mild psychomotor retardation.? She was cooperative with exam in mild distress.? Speech was more productive in rate and volume and remained childlike. Mood described as good. Her affect was intense today. Thought process was linear and logical. Thought content: Patient denied suicidal or homicidal ideation, There was no overt delusions but ideas of reference remained present. There was evidence of mild paranoia. ?Attention and concentration were improving and memory appeared mostly reliable, but none were formally tested.? She is alert and oriented x person and place.? Insight was improving and judgment remained limited, Impulse control is limited.? Vitals/I&O/Wt Last Vital Signs Temp 97.8 F 01/22/24 06:00 Pulse 106 H 01/22/24 06:00 Resp 18 01/22/24 06:00 BP 102/71 01/22/24 06:00 Pulse Ox 94 01/22/24 06:00 O2 Del Method Room Air 01/18/24 13:53 01/21/24 01/22/24 01/22/24 22:59 06:59 14:59 Intake Total 1280 / 1280 Balance 1280 / 1280 Weight last 48 hrs Weight 102.965 kg Data NPU 12/09/23 02:00 12/09/23 02:00 A&P Assessment and plan (1) Schizophrenia, paranoid: (2) Alcohol dependence, in remission: (3) Nicotine dependence, cigarettes, uncomplicated: (4) Mild intellectual disabilities: (5) Other stimulant dependence, in remission: (6) Lack of access to transportation: (7) Impulse control disorder, unspecified: Plan This is a 42-year-old white female with a long history of schizophrenia and 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 She presents somewhat endorsing that she has done a little better after being here and the safety of the unit overnight. 1.? Given Abilify Maintena 400 mg IM 01/02/2024. Continue Caplyta 42mg daily, Continue depakote ER 1000mg in am. Continue trazodone to 200mg at night. 2.? Continue every 15 minute checks for safety. 3.? Encourage individual, group and milieu therapies. 4.? Seeking guardianship. 5. Patient placed on a 21 day hold secondary to significant fear of her inability to care for herself against the backdrop of her functional inability demonstrated by the [facility] report as well as combination of that with addiction. Patient served with her 90-day hold hearing paperwork. 6. Encourage sobriety at the highest level of care available. Began level 2 for process of guardianship. Patient had level 2 interview which was a challenge for her. Appears she has an accepting facility once we get guardianship and level 2 completely approved. Guardianship hearing scheduled for 01/25/24. Involuntary Hold Information 2 96 Hour Hold: 96 Hour Involuntary Admission: Yes 96 Hour Hold Ending Date: 12/15/23 96 Hour Hold Ending Time: 01:42 Attestations NPU 2 Medical Necessity Statement*: Inpatient hospitalization is medically necessary and the clinically appropriate intervention at this time. We will monitor medication to make changes as indicated. The patient's likely length of stay 7-10 days. Patient is candidate for guardianship and placement. Coding Level of Care Code Acute Code for [facility] Fwd Diagnoses Schizophrenia, paranoid F20.0 Alcohol dependence, 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
[2024-01-22] MEDS: CAPLYTA 42 MG 1 EACH PO (18:24)
[2024-01-22 20:33] VITALS: BP 91/62; PULSE 83; RESP 16; TEMP 36.7; O2SAT 97
[2024-01-22] MEDS: trazodone 100 mg Tablet 200 MG PO (20:41)
[2024-01-23 06:00] VITALS: BP 114/74; PULSE 74; RESP 16; TEMP 36.7; O2SAT 100
[2024-01-23] MEDS: divalproex ER 500 mg Tablet (24H) 1000 MG PO (08:33)
[2024-01-23] MEDS: nicotine 4 mg lozenge MUCOUS MEM ×4 (08:33→20:22)
[2024-01-23] MEDS: ondansetron 4 MG Tablet PO (12:19)
[2024-01-23] MEDS: guaiFENesin-dextromethorphan UDC 10 mL PO (12:31)
[2024-01-23 14:00] VITALS: BP 99/75; PULSE 88; RESP 18; TEMP 36.6; O2SAT 97
[2024-01-23] MEDS: CAPLYTA 42 MG 1 EACH PO (16:54)
--- NOTE | 2024-01-23 17:33 | P.NPUPN_ITS ---
Subjective NPU 2 Subjective: 43-year-old female with schizophrenia cu rrently awaiting placement. She reported no side effects from her medication. Patient reported no side effects from her medications. That she was feeling about the same. She stated that she was looking forward to her court hearing and continued to reiterate that she would likely be going home after that despite being informed of the likelihood of her needing guardianship. She was compliant with her oral medications on the milieu. Mental Status Exam 2 MSE Comments: This is an obese white female with hospital scrubs on with limited grooming and eye contact.? No abnormal movements except for mild psychomotor retardation.? She was cooperative with exam in mild distress.? Speech was more productive in rate and volume and remained childlike. Mood described as allright. Her affect was odd and subdued. Thought process was linear and logical. Thought content: Patient denied suicidal or homicidal ideation, There was no overt delusions but ideas of reference remained present. There was evidence of mild paranoia. ?Attention and concentration were improving and memory appeared mostly reliable, but none were formally tested.? She is alert and oriented x person and place.? Insight was improving and judgment remained limited, Impulse control is limited.? Vitals/I&O/Wt Last Vital Signs Temp 98 F 01/23/24 14:00 Pulse 88 01/23/24 14:00 Resp 18 01/23/24 14:00 BP 99/75 01/23/24 14:00 Pulse Ox 97 01/23/24 14:00 O2 Del Method Room Air 01/18/24 13:53 Weight last 48 hrs Weight 102.965 kg Data NPU 12/09/23 02:00 12/09/23 02:00 A&P Assessment and plan (1) Schizophrenia, paranoid: (2) Alcohol dependence, in remission: (3) Nicotine dependence, cigarettes, uncomplicated: (4) Mild intellectual disabilities: (5) Other stimulant dependence, in remission: (6) Lack of access to transportation: (7) Impulse control disorder, unspecified: Plan This is a 42-year-old white female with a long history of schizophrenia and 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 She presents somewhat endorsing that she has done a little better after being here and the safety of the unit overnight. 1.? Given Abilify Maintena 400 mg IM 01/02/2024. Continue Caplyta 42mg daily, Continue depakote ER 1000mg in am. Continue trazodone to 200mg at night. 2.? Continue every 15 minute checks for safety. 3.? Encourage individual, group and milieu therapies. 4.? Seeking guardianship. 5. Patient placed on a 21 day hold secondary to significant fear of her inability to care for herself against the backdrop of her functional inability demonstrated by the [facility] report as well as combination of that with addiction. Patient served with her 90-day hold hearing paperwork. 6. Encourage sobriety at the highest level of care available. Began level 2 for process of guardianship. Patient had level 2 interview which was a challenge for her. Appears she has an accepting facility once we get guardianship and level 2 completely approved. Guardianship hearing scheduled for 01/25/24. Involuntary Hold Information 2 96 Hour Hold: 96 Hour Involuntary Admission: Yes 96 Hour Hold Ending Date: 12/15/23 96 Hour Hold Ending Time: 01:42 Attestations NPU 2 Medical Necessity Statement*: Inpatient hospitalization is medically necessary and the clinically appropriate intervention at this time. We will monitor medication to make changes as indicated. The patient's likely length of stay 7-10 days. Patient is candidate for guardianship and placement. Coding Level of Care Code Acute Code for [facility] Fwd Diagnoses Schizophrenia, paranoid F20.0 Alcohol dependence, 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
[2024-01-23 20:07] VITALS: BP 133/79; PULSE 79; RESP 18; TEMP 36.4; O2SAT 99
[2024-01-23] MEDS: trazodone 100 mg Tablet 200 MG PO (20:12)
[2024-01-24 06:00] VITALS: BP 91/62; PULSE 71; RESP 16; TEMP 36.6; O2SAT 96
[2024-01-24] MEDS: nicotine 4 mg lozenge MUCOUS MEM ×3 (07:51→15:56)
[2024-01-24] MEDS: divalproex ER 500 mg Tablet (24H) 1000 MG PO (07:51)
[2024-01-24] MEDS: docusate sodium 100 mg Capsule PO (11:28)
[2024-01-24 14:00] VITALS: BP 104/73; PULSE 101; RESP 18; TEMP 36.4; O2SAT 95
[2024-01-24] MEDS: CAPLYTA 42 MG 1 EACH PO (16:39)
--- NOTE | 2024-01-24 17:18 | P.NPUPN_ITS ---
Subjective NPU 2 Subjective: 43-year-old female with schizophrenia cu rrently awaiting placement. The patient had reported that she wished to be well-dressed and maintained for her virtual interview to determine guardianship. She stated that she was planning on getting ready for it. She had continued to report that she wished to live on her own property. She was redirectable and appeared less irritable. She had continued to report that she had little need for any help currently at the time but appeared less focused on her special abilities. Mental Status Exam 2 MSE Comments: This is an obese white female with hospital scrubs on with limited grooming and eye contact.? No abnormal movements except for mild psychomotor retardation.? She was cooperative with exam in mild distress.? Speech was more productive in rate and volume and remained childlike. Mood described as good. Her affect was subdued. Thought process was linear and logical. Thought content: Patient denied suicidal or homicidal ideation, There was no overt delusions but some mild paranoia noted. ?Attention and concentration were improving and memory appeared mostly reliable, but none were formally tested.? She is alert and oriented x person and place.? Insight was improving and judgment remained limited, Impulse control is limited.? Vitals/I&O/Wt Last Vital Signs Temp 97.6 F 01/24/24 14:00 Pulse 101 H 01/24/24 14:00 Resp 18 01/24/24 14:00 BP 104/73 01/24/24 14:00 Pulse Ox 95 01/24/24 14:00 O2 Del Method Room Air 01/24/24 06:00 Data NPU 12/09/23 02:00 12/09/23 02:00 A&P Assessment and plan (1) Schizophrenia, paranoid: (2) Alcohol dependence, in remission: (3) Nicotine dependence, cigarettes, uncomplicated: (4) Mild intellectual disabilities: (5) Other stimulant dependence, in remission: (6) Lack of access to transportation: (7) Impulse control disorder, unspecified: Plan This is a 42-year-old white female with a long history of schizophrenia and 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 She presents somewhat endorsing that she has done a little better after being here and the safety of the unit overnight. 1.? Given Abilify Maintena 400 mg IM 01/02/2024. Continue Caplyta 42mg daily, Continue depakote ER 1000mg in am. Check LFT, CBC with diff and AM depakote level on discharge. Continue trazodone to 200mg at night. 2.? Continue every 15 minute checks for safety. 3.? Encourage individual, group and milieu therapies. 4.? Seeking guardianship. 5. Patient placed on a 21 day hold secondary to significant fear of her inability to care for herself against the backdrop of her functional inability demonstrated by the [facility] report as well as combination of that with addiction. Patient served with her 90-day hold hearing paperwork. 6. Encourage sobriety at the highest level of care available. Began level 2 for process of guardianship. Patient had level 2 interview which was a challenge for her. Appears she has an accepting facility once we get guardianship and level 2 completely approved. Guardianship hearing scheduled for 01/25/24. Involuntary Hold Information 2 96 Hour Hold: 96 Hour Involuntary Admission: Yes 96 Hour Hold Ending Date: 12/15/23 96 Hour Hold Ending Time: 01:42 Attestations NPU 2 Medical Necessity Statement*: Inpatient hospitalization is medically necessary and the clinically appropriate intervention at this time. We will monitor medication to make changes as indicated. The patient's likely length of stay 7-10 days. Patient is candidate for guardianship and placement. Coding Level of Care Code Acute Code for [facility] Fwd Diagnoses Schizophrenia, paranoid F20.0 Alcohol dependence, 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
[2024-01-24 19:50] VITALS: BP 115/63; PULSE 82; RESP 16; TEMP 36.6; O2SAT 95
[2024-01-24] MEDS: trazodone 100 mg Tablet 200 MG PO (20:02)
[2024-01-25 06:00] VITALS: BP 120/60; PULSE 75; RESP 16; TEMP 36.8; O2SAT 97
[2024-01-25] MEDS: divalproex ER 500 mg Tablet (24H) 1000 MG PO (08:15)
[2024-01-25] MEDS: nicotine 4 mg lozenge MUCOUS MEM ×4 (08:25→18:47)
[2024-01-25 14:00] VITALS: BP 107/73; PULSE 78; RESP 16; TEMP 37; O2SAT 97
--- NOTE | 2024-01-25 15:37 | P.NPUPN_ITS ---
Subjective NPU 2 Subjective: 43-year-old female with schizophrenia cu rrently awaiting placement. The patient was placed on guardianship today after the hearing. The patient had continued to state feeling anxious about going to a new place as she had continued to state that she thought that she could return home. She had spent time discussing her ex- Alexandre. She had appeared more anxious but was redirectable on the milieu. She was able to attend groups. There was no evidence of aggression and the patient did not require any as needed medications. Mental Status Exam 2 MSE Comments: This is an obese white female with hospital scrubs on with limited grooming and eye contact.? No abnormal movements except for mild psychomotor retardation.? She was cooperative with exam in mild distress.? Speech was more productive in rate and volume and remained childlike. Mood described as anxious. Her affect was subdued. Thought process was linear and logical. Thought content: Patient denied suicidal or homicidal ideation, There was no overt delusions but some mild paranoia noted. ?Attention and concentration were improving and memory appeared mostly reliable, but none were formally tested.? She is alert and oriented x person and place.? Insight was improving and judgment remained limited, Impulse control is limited.? Vitals/I&O/Wt Last Vital Signs Temp 98.6 F 01/25/24 14:00 Pulse 78 01/25/24 14:00 Resp 16 01/25/24 14:00 BP 107/73 01/25/24 14:00 Pulse Ox 97 01/25/24 14:00 O2 Del Method Room Air 01/25/24 14:00 Data NPU 12/09/23 02:00 12/09/23 02:00 A&P Assessment and plan (1) Schizophrenia, paranoid: (2) Alcohol dependence, in remission: (3) Nicotine dependence, cigarettes, uncomplicated: (4) Mild intellectual disabilities: (5) Other stimulant dependence, in remission: (6) Lack of access to transportation: (7) Impulse control disorder, unspecified: Plan This is a 42-year-old white female with a long history of schizophrenia and 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 She presents somewhat endorsing that she has done a little better after being here and the safety of the unit overnight. 1.? Given Abilify Barbaraa 400 mg IM 01/02/2024. Continue Caplyta 42mg daily, Continue depakote ER 1000mg in am. Check LFT, CBC with diff and AM depakote level on discharge. Continue trazodone to 200mg at night. 2.? Continue every 15 minute checks for safety. 3.? Encourage individual, group and milieu therapies. 4.? Seeking guardianship. 5. Patient placed on a 21 day hold secondary to significant fear of her inability to care for herself against the backdrop of her functional inability demonstrated by the [facility] report as well as combination of that with addiction. Patient served with her 90-day hold hearing paperwork. 6. Patient under guardianship beginning today. Discharge tommorow to [facility]. Involuntary Hold Information 2 96 Hour Hold: 96 Hour Involuntary Admission: Yes 96 Hour Hold Ending Date: 12/15/23 96 Hour Hold Ending Time: 01:42 Attestations NPU 2 Medical Necessity Statement*: Inpatient hospitalization is medically necessary and the clinically appropriate intervention at this time. We will monitor medication to make changes as indicated. The patient's likely length of stay 1-[address] appointed guardianship. Coding Level of Care Code Acute Code for [facility] Fwd Diagnoses Schizophrenia, paranoid F20.0 Alcohol dependence, 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
[2024-01-25] MEDS: CAPLYTA 42 MG 1 EACH PO (17:00)
[2024-01-25 20:12] VITALS: BP 108/77; PULSE 93; RESP 18; TEMP 36.4; O2SAT 99
[2024-01-25] MEDS: trazodone 100 mg Tablet 200 MG PO (20:56)
[2024-01-26 06:00] VITALS: BP 106/68; PULSE 85; RESP 18; TEMP 36.4; O2SAT 100
[2024-01-26 06:43] LABS: Valproic Acid Level 33.2 ug/mL (50-100)
[2024-01-26 07:20] VITALS: BP 106/68; PULSE 85; RESP 18; TEMP 36.4; O2SAT 100
[2024-01-26] MEDS: divalproex ER 500 mg Tablet (24H) 1000 MG PO (08:15)
[2024-01-26] MEDS: nicotine 4 mg lozenge MUCOUS MEM ×2 (08:16→10:32)
--- NOTE | 2024-01-26 09:51 | W.PM.NPUDCS ---
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 Discontinued Abilify Maintena 300 mg suspension,extended rel recon 300 mg IM Q28D Qty: 1 6RF trazodone 100 mg tablet 100 mg PO BEDTIME aripiprazole 10 mg tablet 10 mg PO DAILY nicotine 21-14-7 mg/24 hr patch, TD daily, sequential 21 patch transdermal DAILY Rx Instructions: apply 1-21 mg NICOTINE PATCH daily for 28 days; follow with 1-14 mg PATCH daily for 14 days, then 1-7mg PATCH daily for 14 days transdermal Discharge Orders: Discharge Order (Routine); Ordered 01/26/24 Ordered By: Job Herrera Referrals: [facility] [Other] Discharge Diet: Usual diet Discharge Activity: Resume usual activity Patient Instructions: Opioid Safety Activity Restrictions/Additional Instructions: PATIENT'S NEXT ABILIFY MAINTENNA 400MG IM INJECTION IN DUE 01/30/24 Discharge Attestations NPU Time Spent in Discharge Care*: less than 30 min Coding Level of Care Code Acute Code for [facility] Fwd Diagnoses Schizophrenia, paranoid F20.0 Alcohol dependence, 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
== END 2024-01-26 10:35 | disposition intermediate care facility (04) | DRG 885 ==
LOC: ER 06:44 → NP 14:21
PROVIDERS: Emergency Medicine; Admitting Provider Psychiatry & Neurology Psychiatry; Emergency Provider Family Medicine; Visit Provider Psychiatry & Neurology Psychiatry
DX: F20.0 Paranoid schizophrenia (principal); R45.851 Suicidal ideations; F32.A Depression, unspecified; F17.210 Nicotine dependence, cigarettes, uncomplicated; F70 Mild intellectual disabilities; F10.21 Alcohol dependence, in remission; F15.21 Other stimulant dependence, in remission; E66.9 Obesity, unspecified; S00.81XA Abrasion of other part of head, initial encounter; F63.9 Impulse disorder, unspecified; Z59.82 Transportation insecurity; Z68.35 Body mass index [BMI] 35.0-35.9, adult; X83.8XXA Intentional self-harm by other specified means, initial encounter
CPT/HCPCS: 36415; 80053; 80164; 80306; 80307; 81001; 84443; 84703; 85025; 93005; 96372; 97150; 97165; 97167; 99285; Q0162